=== PATIENT | female | born 1970 | race African-American/Black ===

== ENCOUNTER 2022-08-18 05:55 | Inpatient (IN) | payer OTHER ==
[2022-08-18] MEDS ORDERED: SODIUM CHLORIDE 0.9% 1000 ML 1,000 ML IV ONE (07:30)
[2022-08-18] MEDS ORDERED: PIPERACILLIN/TAZOBACTAM 3.375 3.375 GM/50 ML BAG IV SCH (07:30)
[2022-08-18 07:55] LABS: Hematocrit 27.6 % (30.3-42.9); Hemoglobin 8.9 gm/dl (10.1-14.3); Mean Corpuscular HGB Conc 32 % (30-34); Mean Corpuscular Volume 84 fl (79-97); Platelet Count 201 K/mm3 (140-440); Red Blood Count 3.28 M/mm3 (3.65-5.03); Red Cell Distribution Width 17.4 % (13.2-15.2)
--- NOTE | 2022-08-18 08:14 | XRay Report ---
CHEST 1 VIEW 08/18/2022 7:05 AM INDICATION / CLINICAL INFORMATION: sob. COMPARISON: None available. FINDINGS: SUPPORT DEVICES: None. HEART / MEDIASTINUM: No significant abnormality. LUNGS / PLEURA: Interstitial markings are slightly prominent likely representing mild interstitial ed christal. No focal infiltrate, pleural effusion or pneumothorax is appreciated. ADDITIONAL FINDINGS: No significant additional findings. IMPRESSION: 1. Mild pulmonary venous congestion Signer Name: Phoenix Love Jr, MD Signed: 08/18/2022 8:10 AM Workstation Name: [id number]
[2022-08-18 08:15] LABS: Alanine Aminotransferase 86 units/L (7-56); Albumin 3.1 g/dL (3.9-5); Blood Urea Nitrogen 6 mg/dL (7-17); Calcium 8.4 mg/dL (8.4-10.2); Hemolysis Index 0
[2022-08-18 08:18] LABS: BUN/Creatinine Ratio 12
[2022-08-18 09:00] LABS: Band Neutrophils # (Manual) 0.3 K/mm3; Basophils % (Manual) 0 % (0.0-1.8); Eosinophils % (Manual) 0 % (0.0-4.3); Hypochromasia 1+; Monocytes % (Manual) 0 % (0.0-7.3); Platelet Estimate Consistent w Auto; Total Cells Counted 100; Toxic Granulation 1+
[2022-08-18] MEDS ORDERED: VANCOMYCIN/NS 1 GM/250 ML 1 GM/250 ML BAG IV SCH (09:00)
--- NOTE | 2022-08-18 09:51 | Emergency Department Report ---
ED General Adult HPI - General Chief complaint: Weakness Stated complaint: FEVER Time Seen by Provider: 08/18/22 07:12 Source: patient, EMS Mode of arrival: Stretcher Limitations: Physical Limitation - History of Present Illness Initial comments: 52-year-old female with a history of MS, status post transfusion therapy, complains of fever x4 days patient admits to having chills. Denies having any cough shortness of breath. -: Gradual Location: chest Radiation: non-radiation Severity scale (0 -10): 0 Improves with: none Worsens with: none Associated Symptoms: fever/chills, malaise - Related Data Home Medications Medication Instructions Recorded Confirmed Last Taken Gabapentin [Neurontin] 300 mg PO BID 08/19/22 08/19/22 Unknown Insulin Glargine [Lantus VIAL] 10 unit SUB-Q QAM 08/19/22 08/19/22 Unknown Prednisone [predniSONE (Andreina) ER 5 mg PO QDAY 08/19/22 08/19/22 08/18/22 08:00 TAB] azaTHIOprine [Imuran] 50 mg PO BID 08/19/22 08/19/22 Unknown glipiZIDE [Glucotrol] 5 mg PO BID 08/19/22 08/19/22 08/18/22 08:00 Allergies Allergy/AdvReac Type Severity Reaction Status Date / Time lisinopril Allergy Unknown Verified 08/18/22 07:50 ED Review of Systems ROS: Stated complaint: FEVER Other details as noted in HPI Constitutional: chills, fever, malaise Eyes: as per HPI Respiratory: no symptoms reported, see HPI, orthopnea Endocrine: no symptoms reported Gastrointestinal: as per HPI Musculoskeletal: as per HPI Neurological: as per HPI Psychiatric: as per HPI ED Past Medical Hx - Surgical History Past Surgical History?: No Hx Coronary Stent: No Hx Open Heart Surgery: No Hx Pacemaker: No - Medications Home Medications: Home Medications Medication Instructions Recorded Confirmed Last Taken Type Gabapentin [Neurontin] 300 mg PO BID 08/19/22 08/19/22 Unknown History Insulin Glargine [Lantus VIAL] 10 unit SUB-Q QAM 08/19/22 08/19/22 Unknown History Prednisone [predniSONE (Andreina) ER 5 mg PO QDAY 08/19/22 08/19/22 08/18/22 08:00 History TAB] azaTHIOprine [Imuran] 50 mg PO BID 08/19/22 08/19/22 Unknown History glipiZIDE [Glucotrol] 5 mg PO BID 08/19/22 08/19/22 08/18/22 08:00 History ED Physical Exam - General Limitations: Physical Limitation ED Course Vital Signs 08/18/22 08/18/22 08/18/22 06:01 06:19 07:01 Temperature 99.8 F H Pulse Rate 120 H 103 H 109 H Respiratory 20 23 25 H Rate Blood Pressure 127/86 Blood Pressure 130/80 [Left] O2 Sat by Pulse 95 97 Oximetry 08/18/22 08/18/22 08/18/22 07:15 07:31 07:45 Temperature Pulse Rate 109 H 105 H 104 H Respiratory 28 H 24 19 Rate Blood Pressure 126/83 109/70 120/81 Blood Pressure [Left] O2 Sat by Pulse 97 98 98 Oximetry 08/18/22 08/18/22 08/18/22 08:01 08:15 09:01 Temperature Pulse Rate 105 H 105 H 111 H Respiratory 15 16 27 H Rate Blood Pressure 105/75 103/76 108/73 Blood Pressure [Left] O2 Sat by Pulse 93 95 96 Oximetry 08/18/22 08/18/22 08/18/22 10:01 11:01 12:00 Temperature Pulse Rate Respiratory Rate Blood Pressure 122/81 121/73 124/82 Blood Pressure [Left] O2 Sat by Pulse 95 94 92 Oximetry 08/18/22 08/18/22 08/18/22 13:01 14:01 15:01 Temperature Pulse Rate 104 H Respiratory 26 H Rate Blood Pressure 117/71 112/73 122/78 Blood Pressure [Left] O2 Sat by Pulse 95 96 95 Oximetry 08/18/22 08/18/22 08/18/22 17:01 18:01 18:04 Temperature Pulse Rate 107 H 107 H Respiratory 19 17 Rate Blood Pressure 132/78 132/78 Blood Pressure [Left] O2 Sat by Pulse 90 88 100 Oximetry 08/18/22 08/18/22 19:01 20:01 Temperature Pulse Rate 109 H 112 H Respiratory 22 31 H Rate Blood Pressure 132/78 132/78 Blood Pressure [Left] O2 Sat by Pulse 93 93 Oximetry ED Medical Decision Making - Lab Data Result diagrams: 08/19/22 05:51 08/19/22 05:51 Critical care attestation.: If time is entered above; I have spent that time in minutes in the direct care of this critically ill patient, excluding procedure time. ED Disposition Clinical Impression: Bacteremia Disposition: ADMITTED INPATIENT Is pt being admited?: Yes Does the pt Need Aspirin: No Condition: Serious
[2022-08-18] MEDS ORDERED: PIPERACILLIN/TAZOBACTAM 3.375 3.375 GM/50 ML BAG IV ONE (10:01)
[2022-08-18 10:36] LABS: Color,Urine Amber (Yellow)
--- NOTE | 2022-08-18 14:00 | History and Physical Report ---
History of Present Illness Chief complaint: I do not feel good History of present illness: 52 YO Female with MS presents to ED for evaluation. Patient reports around feel well". Patient states that she had experienced fever, chills over the past 4 days after undergoing infusion of another medication for MS. patient was seen and evaluated by her primary care physician and was found to have fever and was instructed to seek further care. Patient transported to [facility] via private vehicle for further care and evaluation of the aforementioned symptoms. The patient was seen and evaluated in the emergency department. Lab and imaging studies reviewed. Patient found to have systemic inflammatory response syndrome, me tabolic acidosis, secondary to infusion reaction. Patient treated with empiric IV antibiotic therapy and admitted to medical floor due to increased risk of worsening symptoms after medical stabilization. Patient denies fever, chills, chest pain, palpitation, productive cough, skin rash, recent contact, dizziness, upper or lower extremity weakness, headache, memory loss, skin rash, joint pain, headache, trauma, or known exposure to COVID-19. No prior admission for review. No medication listed at time of admission for reconciliation. Advanced care planning conducted in E. Past History Past Medical History: other (See HPI) Past Surgical History: No surgical history, Other (Reviewed) Social history: . denies: smoking, alcohol abuse, prescription drug abuse Family history: no significant family history, other (Reviewed) Medications and Allergies Allergies Allergy/AdvReac Type Severity Reaction Status Date / Time lisinopril Allergy Unknown Verified 08/18/22 07:50 Review of Systems Constitutional: fever, chills, no weight loss, no sweats, no weakness Ears, nose, mouth and throat: no ear pain, no ear discharge, no tinnitis, no decreased hearing, no nasal congestion Breasts: no change in shape, no swelling, no mass Cardiovascular: no chest pain, no orthopnea, no palpitations, no rapid/irregular heart beat, no edema Respiratory: no cough, no excessive sputum, no hemoptysis, no shortness of breath Gastrointestinal: no abdominal pain, no nausea, no vomiting, no constipation, no change in bowel habits Genitourinary Female: no pelvic pain, no dysuria, no urgency, no stress incontinence Rectal: no pain, no incontinence, no bleeding Musculoskeletal: no neck stiffness, no neck pain, no shooting arm pain, no low back pain, no shooting leg pain, no leg numbness/tingling, no redness of joints Integumentary: no rash, no pruritis, no sores, no wounds, no jaundice, no boils Neurological: no head injury, no numbness, no tingling, no syncope, no ataxia, no lack of coordination Psychiatric: no memory loss, no change in sleep habits, no hypersomnia Endocrine: no cold intolerance, no polyphagia, no polydipsia, no nocturia, no excessive sweating, no weight change Allergic/Immunologic: no urticaria, no allergic rhinitis Exam - Constitutional Vitals: Temp Pulse Resp BP Pulse Ox 99.8 F H 111 H 27 H 124/82 92 08/18/22 06:01 08/18/22 09:01 08/18/22 09:01 08/18/22 12:00 08/18/22 12:00 General appearance: Present: mild distress - EENT Eyes: Present: PERRL ENT: hearing intact, clear oral mucosa - Neck Neck: Present: supple, normal ROM - Respiratory Respiratory effort: normal Respiratory: bilateral: CTA - Cardiovascular Heart Sounds: Present: S1 & S2. Absent: rub, click - Extremities Extremities: pulses symmetrical, No edema Peripheral Pulses: within normal limits - Abdominal General gastrointestinal: Present: soft, non-tender, non-distended, normal bowel sounds Female genitourinary: Present: normal - Integumentary Integumentary: Present: clear, warm, dry - Musculoskeletal Musculoskeletal: gait normal, strength equal bilaterally - Psychiatric Psychiatric: appropriate mood/affect, intact judgment & insight - Neurologic Neurologic: CNII-XII intact, moves all extremities Results - Labs CBC & Chem 7: 08/18/22 07:34 08/18/22 07:34 Labs: Abnormal lab results 08/18/22 08/18/22 08/18/22 Range/Units 07:34 07:34 07:34 RBC 3.28 L (3.65-5.03) M/mm3 Hgb 8.9 L (10.1-14.3) gm/dl Hct 27.6 L (30.3-42.9) % MCH 27 L (28-32) pg RDW 17.4 H (13.2-15.2) % Seg Neuts % (Manual) 89.0 H (40.0-70.0) % Lymphocytes % (Manual) 6.0 L (13.4-35.0) % Seg Neutrophils # Man 8.0 H (1.8-7.7) K/mm3 Lymphocytes # (Manual) 0.5 L (1.2-5.4) K/mm3 Carbon Dioxide 21 L (22-30) mmol/L BUN 6 L (7-17) mg/dL Creatinine 0.5 L (0.6-1.2) mg/dL Glucose 180 H (65-100) mg/dL Lactic Acid 2.90 H* (0.7-2.0) mmol/L Total Bilirubin 5.20 H (0.1-1.2) mg/dL AST 43 H (5-40) units/L ALT 86 H (7-56) units/L Alkaline Phosphatase 282 H (35-129) units/L Total Protein 5.2 L (6.3-8.2) g/dL Albumin 3.1 L (3.9-5) g/dL Assessment and Plan - Patient Problems (1) Infusion reaction Current Visit: Yes Status: Acute Qualifiers: Encounter type: initial encounter Qualified Code(s): T80.90XA - Unspecified complication following infusion and therapeutic injection, initial encounter Plan to address problem: Supportive care, CBC, repeat CBC in a.m., IV fluid cessation therapy, pain control. (2) SIRS (systemic inflammatory response syndrome) Current Visit: Yes Status: Acute Plan to address problem: Empiric IV antibiotic therapy, CBC, repeat CBC in a.m., supportive care. (3) Multiple sclerosis Current Visit: Yes Status: Acute Plan to address problem: Chronic, no acute exacerbation at this time, outpatient neurology follow-up. (4) Metabolic acidosis Current Visit: Yes Status: Acute Plan to address problem: IV fluid resuscitation therapy, BMP, repeat BMP in AM. (5) DVT prophylaxis Current Visit: Yes Status: Acute Plan to address problem: SCD to bilateral lower extremities while in bed (6) Advance care planning Current Visit: Yes Status: Acute Plan to address problem: Disease education conducted, care plan discussed, diagnoses discussed, prognosis discussed, patient acknowledges understanding and agreement with care plan, +30 minutes. (7) Preventative health care Current Visit: Yes Status: Acute Plan to address problem: Patient counseled regarding risk factor reduction, outpatient follow-up with primary care physician for all age and risk factor appropriate screening test. Outpatient follow-up with neurology. +30 minutes.
[2022-08-18] MEDS ORDERED: HYDROmorphone 0.5 MG/0.5 ML INJ IV PRN (14:27)
[2022-08-18] MEDS ORDERED: ACETAMINOPHEN 325 MG TAB PO PRN (14:27)
[2022-08-18] MEDS ORDERED: ONDANSETRON 4 MG/2 ML INJ IV PRN (14:27)
[2022-08-18] MEDS ORDERED: ALBUTEROL 2.5 MG/3 ML NEBU IH PRN (14:27)
[2022-08-18] MEDS: SODIUM CHLORIDE 0.9% 1000 ML 1,000 ML IV SCH (22:44)
[2022-08-19] MEDS: SODIUM CHLORIDE 0.9% 1000 ML 1,000 ML IV SCH ×2 (06:00→17:57)
[2022-08-19 06:22] LABS: Basophils % (Auto) 0.2 % (0.0-1.8); Eosinophils # (Auto) 0.1 K/mm3 (0.0-0.4); Eosinophils % (Auto) 0.7 % (0.0-4.3); Hematocrit 26.3 % (30.3-42.9); Hemoglobin 8.6 gm/dl (10.1-14.3); Lymphocytes # (Auto) 1.3 K/mm3 (1.2-5.4); Lymphocytes % (Auto) 14.5 % (13.4-35.0); Mean Corpuscular HGB Conc 33 % (30-34); Mean Corpuscular Volume 85 fl (79-97); Monocytes # (Auto) 0.5 K/mm3 (0.0-0.8); Monocytes % (Auto) 5.5 % (0.0-7.3); Platelet Count 204 K/mm3 (140-440); Red Cell Distribution Width 17.7 % (13.2-15.2)
[2022-08-19 06:38] LABS: Blood Urea Nitrogen 7 mg/dL (7-17); Hemolysis Index 3
[2022-08-19 06:41] LABS: BUN/Creatinine Ratio 23
--- NOTE | 2022-08-19 08:12 | Cat Scan Report ---
CT head/brain wo con INDICATION: confusion. TECHNIQUE: CT head. All CT scans at this location are performed using CT dose reduction for ALARA by means of automated exposure control. COMPARISON: None. FINDINGS: Intracranial: Craig-white matter differentiation is maintained. No intracranial hemorrhage. No extra a xial collection. No hydrocephalus. No herniation. Sinuses: Mild mucosal thickening in the left maxillary sinus. Paranasal sinuses and mastoid air cells are otherwise essentially clear. Orbits: Globes are intact. Calvarium: No acute fracture. IMPRESSION: 1. No acute intracranial abnormality. Signer Name: Renard Tian MD Signed: 08/18/2022 4:22 PM Workstation Name: [email or web address]
--- NOTE | 2022-08-19 09:38 | Electrocardiograph Report ---
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
--- NOTE | 2022-08-19 11:59 | Progress Note ---
Assessment and Plan Assessment and plan: #Sepsis -patient afebrile since admission, does have tachycardia and tachypnea -UA negative; Blood cultures negative -s/p 1 dose of zosyn in the ED -unknown source at this time, patient did have recent infusion could be secondary to an infusion reaction vs infective source #Elevated bilirubin #Elevated liver enzymes #Jaundice -patient visibly jaundiced -AST 43, ALT 86, T bili 5.20 -acute hepatitis panel ordered -Abdominal ultrasound ordered -repeat CMP and total, direct bilirubin in the morning #Normocytic anemia -Hgb 8.8, baseline unknown -will transfuse for Hgb<7 -likely secondary to chronic disease (MS) #Metabolic acidosis #Lactic acidosis -continue IVFs, will trend #Multiple sclerosis -patient taking prednisone 5mg qday, will continue #Type 2 diabetes, insulin-dependent -patient takes glipizide and lantus 10U QHS -continue with SSI + accuchecks while inpatient #Hypokalemia -K 3.5, will replete and monitor #Advanced care planning -Disease education conducted, care plan discussed, diagnoses discussed, prognosis discussed, and patient + acknowledges understanding with care plan -Time: +30 min History Interval history: No acute events overnight. Patient reports feeling well better than admission. Her and her did not notice any change in the of her eyes. She has noticed that her urine has been darker lately. She denies symptoms of cystitis and abdominal pain. Hospitalist Physical - Physical exam Narrative exam: GENERAL: Well-developed well-nourished. In no acute distress. HEENT: Scleral icterus noted NECK: Supple. CHEST/LUNGS: CTAB on room air HEART/CARDIOVASCULAR: RRR. No murmur, rubs or gallops appreciated. ABDOMEN: +BS. NT/ND. SKIN: No rashes noted. NEURO: No focal motor deficit. Follows all commands and is ambulatory. MUSCULOSKELETAL: No joint effusion EXTREMITIES: No cyanosis, clubbing. L hand swollen and painful. PSYCH: Cooperative. - Constitutional Vitals: Temp Pulse Resp BP Pulse Ox 98.1 F 96 H 16 122/74 94 08/19/22 11:55 08/19/22 11:49 08/19/22 11:49 08/19/22 11:55 08/19/22 11:49 General appearance: Present: mild distress Results - Labs CBC & Chem 7: 08/19/22 05:51 08/19/22 05:51 Labs: Laboratory Last Values WBC 8.8 K/mm3 (4.5-11.0) 08/19/22 05:51 RBC 3.10 M/mm3 (3.65-5.03) L 08/19/22 05:51 Hgb 8.6 gm/dl (10.1-14.3) L 08/19/22 05:51 Hct 26.3 % (30.3-42.9) L 08/19/22 05:51 MCV 85 fl (79-97) 08/19/22 05:51 MCH 28 pg (28-32) 08/19/22 05:51 MCHC 33 % (30-34) 08/19/22 05:51 RDW 17.7 % (13.2-15.2) H 08/19/22 05:51 Plt Count 204 K/mm3 (140-440) 08/19/22 05:51 Lymph % (Auto) 14.5 % (13.4-35.0) 08/19/22 05:51 [place] % (Auto) 5.5 % (0.0-7.3) 08/19/22 05:51 Eos % (Auto) 0.7 % (0.0-4.3) 08/19/22 05:51 Baso % (Auto) 0.2 % (0.0-1.8) 08/19/22 05:51 Lymph # (Auto) 1.3 K/mm3 (1.2-5.4) 08/19/22 05:51 [place] # (Auto) 0.5 K/mm3 (0.0-0.8) 08/19/22 05:51 Eos # (Auto) 0.1 K/mm3 (0.0-0.4) 08/19/22 05:51 Baso # (Auto) 0.0 K/mm3 (0.0-0.1) 08/19/22 05:51 Add Manual Diff Complete 08/18/22 07:34 Total Counted 100 08/18/22 07:34 Seg Neutrophils % 79.1 % (40.0-70.0) H 08/19/22 05:51 Seg Neuts % (Manual) 89.0 % (40.0-70.0) H 08/18/22 07:34 Band Neutrophils % 3.0 % 08/18/22 07:34 Lymphocytes % (Manual) 6.0 % (13.4-35.0) L 08/18/22 07:34 Reactive Lymphs % (Man) 0 % 08/18/22 07:34 Monocytes % (Manual) 0 % (0.0-7.3) 08/18/22 07:34 Eosinophils % (Manual) 0 % (0.0-4.3) 08/18/22 07:34 Basophils % (Manual) 0 % (0.0-1.8) 08/18/22 07:34 Metamyelocytes % 2.0 % 08/18/22 07:34 Myelocytes % 0 % 08/18/22 07:34 Promyelocytes % 0 % 08/18/22 07:34 Blast Cells % 0 % 08/18/22 07:34 Nucleated RBC % Not Reportable 08/18/22 07:34 Seg Neutrophils # 6.9 K/mm3 (1.8-7.7) 08/19/22 05:51 Seg Neutrophils # Man 8.0 K/mm3 (1.8-7.7) H 08/18/22 07:34 Band Neutrophils # 0.3 K/mm3 08/18/22 07:34 Lymphocytes # (Manual) 0.5 K/mm3 (1.2-5.4) L 08/18/22 07:34 Abs React Lymphs (Man) 0.0 K/mm3 08/18/22 07:34 Monocytes # (Manual) 0.0 K/mm3 (0.0-0.8) 08/18/22 07:34 Eosinophils # (Manual) 0.0 K/mm3 (0.0-0.4) 08/18/22 07:34 Basophils # (Manual) 0.0 K/mm3 (0.0-0.1) 08/18/22 07:34 Metamyelocytes # 0.2 K/mm3 08/18/22 07:34 Myelocytes # 0.0 K/mm3 08/18/22 07:34 Promyelocytes # 0.0 K/mm3 08/18/22 07:34 Blast Cells # 0.0 K/mm3 08/18/22 07:34 WBC Morphology Not Reportable 08/18/22 07:34 Hypersegmented Neuts Not Reportable 08/18/22 07:34 Hyposegmented Neuts Not Reportable 08/18/22 07:34 Hypogranular Neuts Not Reportable 08/18/22 07:34 Smudge Cells Not Reportable 08/18/22 07:34 Toxic Granulation 1+ 08/18/22 07:34 Toxic Vacuolation Not Reportable 08/18/22 07:34 Dohle Bodies Not Reportable 08/18/22 07:34 Pelger-Huet Anomaly Not Reportable 08/18/22 07:34 Yolanda Rods Not Reportable 08/18/22 07:34 Platelet Estimate Consistent w auto 08/18/22 07:34 Clumped Platelets Not Reportable 08/18/22 07:34 Plt Clumps, EDTA Not Reportable 08/18/22 07:34 Large Platelets Not Reportable 08/18/22 07:34 Giant Platelets Not Reportable 08/18/22 07:34 Platelet Satelliting Not Reportable 08/18/22 07:34 Plt Morphology Comment Not Reportable 08/18/22 07:34 RBC Morphology Not Reportable 08/18/22 07:34 Dimorphic RBCs Not Reportable 08/18/22 07:34 Polychromasia Not Reportable 08/18/22 07:34 Hypochromasia 1+ 08/18/22 07:34 Poikilocytosis Not Reportable 08/18/22 07:34 Anisocytosis Not Reportable 08/18/22 07:34 Microcytosis Not Reportable 08/18/22 07:34 Macrocytosis Not Reportable 08/18/22 07:34 Spherocytes Not Reportable 08/18/22 07:34 Pappenheimer Bodies Not Reportable 08/18/22 07:34 Sickle Cells Not Reportable 08/18/22 07:34 Target Cells Not Reportable 08/18/22 07:34 Tear Drop Cells Not Reportable 08/18/22 07:34 Ovalocytes Not Reportable 08/18/22 07:34 Helmet Cells Not Reportable 08/18/22 07:34 [place] Bodies Not Reportable 08/18/22 07:34 [place] Rings Not Reportable 08/18/22 07:34 [place] Cells Not Reportable 08/18/22 07:34 Bite Cells Not Reportable 08/18/22 07:34 Crenated Cell Not Reportable 08/18/22 07:34 Elliptocytes Not Reportable 08/18/22 07:34 Acanthocytes (Spur) Not Reportable 08/18/22 07:34 Rouleaux Not Reportable 08/18/22 07:34 Hemoglobin C Crystals Not Reportable 08/18/22 07:34 Schistocytes Not Reportable 08/18/22 07:34 Malaria parasites Not Reportable 08/18/22 07:34 Rob Bodies Not Reportable 08/18/22 07:34 Hem Pathologist Commnt No 08/18/22 07:34 Sodium 139 mmol/L (137-145) 08/19/22 05:51 Potassium 3.5 mmol/L (3.6-5.0) L 08/19/22 05:51 Chloride 107.9 mmol/L (98-107) H 08/19/22 05:51 Carbon Dioxide 20 mmol/L (22-30) L 08/19/22 05:51 Anion Gap 15 mmol/L 08/19/22 05:51 BUN 7 mg/dL (7-17) 08/19/22 05:51 Creatinine 0.3 mg/dL (0.6-1.2) L 08/19/22 05:51 Estimated GFR > 60 ml/min 08/19/22 05:51 BUN/Creatinine Ratio 23 % 08/19/22 05:51 Glucose 77 mg/dL (65-100) 08/19/22 05:51 POC Glucose 129 mg/dL (70-105) H 08/18/22 22:19 Lactic Acid 2.90 mmol/L (0.7-2.0) H* 08/18/22 07:34 Calcium 8.0 mg/dL (8.4-10.2) L 08/19/22 05:51 Total Bilirubin 5.20 mg/dL (0.1-1.2) H 08/18/22 07:34 AST 43 units/L (5-40) H 08/18/22 07:34 ALT 86 units/L (7-56) H 08/18/22 07:34 Alkaline Phosphatase 282 units/L (35-129) H 08/18/22 07:34 Total Protein 5.2 g/dL (6.3-8.2) L 08/18/22 07:34 Albumin 3.1 g/dL (3.9-5) L 08/18/22 07:34 Albumin/Globulin Ratio 1.5 % 08/18/22 07:34 Urine Color Daniela (Yellow) 08/18/22 Unknown Urine Turbidity Clear (Clear) 08/18/22 Unknown Specific [place] (Man) 1.008 (1.003-1.030) 08/18/22 Unknown Ur Protein (Man) Negative mg/dL (Negative) 08/18/22 Unknown Ur Ketones (Man) Negative (Negative) 08/18/22 Unknown Ur Nitrite (Man) Negative (Negative) 08/18/22 Unknown Urine Bilirubin (Man) Negative (Negative) 08/18/22 Unknown Urine Ictotest Not Reportable 08/18/22 Unknown Leukocyte Esterase (Man) Negative (Negative) 08/18/22 Unknown Urine WBC (Auto) 1.0 /HPF (0.0-6.0) 08/18/22 Unknown Urine RBC (Auto) 3.0 /HPF (0.0-6.0) 08/18/22 Unknown U Epithel Cells (Auto) < 1.0 /HPF (0-13.0) 08/18/22 Unknown Urine RBC (Manual) Negative (Negative) 08/18/22 Unknown Microbiology: Microbiology 08/18/22 07:34 Peripheral/Venous Blood Culture - Preliminary Culture in Progress 08/18/22 07:34 Peripheral/Venous Blood Culture - Preliminary Culture in Progress Cervantes/IV: Voiding Method Bedside Commode Active Medications - Current Medications Current Medications: Generic Name Dose Route Start Last Admin Trade Name Freq PRN Reason Stop Dose Admin Acetaminophen 650 mg 08/18/22 14:27 Acetaminophen 325 Mg Tab PO Q4H PRN Pain MILD(1-3)/Fever >100.5/[id number] Albuterol 2.5 mg 08/18/22 14:27 Albuterol 2.5 Mg/3 Ml Nebu IH Q4HRT PRN Shortness Of Breath Gabapentin 300 mg 08/19/22 22:00 Gabapentin 300 Mg Cap PO BID ANURADHA Hydromorphone HCl 0.5 mg 08/18/22 14:27 08/19/22 06:06 Hydromorphone 0.5 Mg/0.5 Ml Inj IV 0.5 mg Q13H PRN Administration Pain , Severe (7-10) Sodium Chloride 1,000 mls @ 125 mls/hr 08/18/22 14:30 08/19/22 06:00 Nacl 0.9% 1000 Ml IV 125 mls/hr DIRECT ANURADHA Administration Miscellaneous Medication 5 mg 08/19/22 12:00 Prednisone [Prednisone (Andreina) Er Tab] PO QDAY ANURADHA Ondansetron HCl 4 mg 08/18/22 14:27 Ondansetron 4 Mg/2 Ml Inj IV Q8H PRN Nausea And Vomiting Oxycodone/Acetaminophen 1 tab 08/18/22 14:27 Oxycodone /Acetaminophen 5-325mg Tab PO Q6H PRN Pain, Moderate (4-6) Sodium Chloride 10 ml 08/18/22 22:00 08/18/22 22:44 Sodium Chloride 0.9% 10 Ml Flush Syringe IV 10 ml BID ANURADHA Administration Sodium Chloride 10 ml 08/18/22 14:27 Sodium Chloride 0.9% 10 Ml Flush Syringe IV PRN PRN LINE FLUSH
[2022-08-19] MEDS ORDERED: NON-FORMULARY EACH (Prednisone [Prednisone (Rayos) Er Tab] 5 MG Tablet.Dr) PO SCH (12:00)
[2022-08-19] MEDS: GABAPENTIN 300 MG CAP PO SCH ×2 (13:26→21:57)
[2022-08-19] MEDS: predniSONE 5 MG TAB PO SCH (13:26)
[2022-08-19 14:44] LABS: Hepatitis B Surface Antigen Non-Reactive (Negative); Hepatitis C Virus Antibody Non-Reactive (NonReactive)
--- NOTE | 2022-08-19 17:24 | Vascular Lab Report ---
DUPLEX DOPPLER UPPER EXTREMITY VENOUS, LEFT INDICATION / CLINICAL INFORMATION: R/O DVT of L hand. TECHNIQUE: Duplex doppler imaging was performed through the veins of the left upper extremity using venous compr ession and other maneuvers. COMPARISON: None available. FINDINGS: LEFT INTERNAL JUGULAR VEIN: Negative. LEFT SUBCLAVIAN VEIN: Negative. LEFT AXILLARY VEIN: Negative. LEFT BRACHIAL VEIN: Negative. LEFT FOREARM VEINS: Negative. LEFT BASILIC VEIN (SUPERFICIAL): Negative. ADDITIONAL FINDINGS: None. IMPRESSION: 1. No sonographic evidence for DVT. Signer Name: Ady Cano MD Signed: 08/19/2022 5:20 PM Workstation Name: [id number]
[2022-08-19] MEDS: oxyCODONE /ACETAMINOPHEN 5-325MG TAB PO PRN (17:56)
[2022-08-20] MEDS: SODIUM CHLORIDE 0.9% 1000 ML 1,000 ML IV SCH ×2 (01:00→11:51)
[2022-08-20 05:32] LABS: Alanine Aminotransferase 58 units/L (7-56); Albumin 2.6 g/dL (3.9-5); Bilirubin,Direct 6.4 mg/dL (0-0.2); Blood Urea Nitrogen 7 mg/dL (7-17); Calcium 8.1 mg/dL (8.4-10.2); Hemolysis Index 3
[2022-08-20 05:49] LABS: BUN/Creatinine Ratio 35
[2022-08-20] MEDS: oxyCODONE /ACETAMINOPHEN 5-325MG TAB PO PRN ×2 (06:38→16:05)
[2022-08-20] MEDS: predniSONE 5 MG TAB PO SCH (08:57)
--- NOTE | 2022-08-20 09:09 | Ultrasound Report ---
ULTRASOUND ABDOMEN, COMPLETE INDICATION: jaundice. COMPARISON: No relevant prior imaging study available. FINDINGS: Pancreas: No significant abnormality. Abdominal Aorta: Normal size. IVC: No significant abnormality. Liver: The liver measures 15.3 cm in length. Heterogeneous appearance of the liver with no discrete mass identified.. Normal hepatopedal blood flow in the main portal vein. Gallbladder: Gallbladder is mostly contracted which limits evaluation for wall thickening. Tiny inter nal layering stones noted. Bile ducts: No significant abnormality. Common bile duct measures 6 mm. Kidneys: Right: 10.2 cm in length. No significant abnormality. Left: 11.4 cm in length. No signif icant abnormality. Spleen: No significant abnormality. Free fluid: None. Additional Findings: There appears to be a small right-sided pleural effusion. IMPRESSION: 1. No acute sonographic abnormality of the abdomen. 2. Mostly contracted gallbladder containing a small amount of stones and sludge. 3. Probable small right-sided pleural effusion. Signer Name: Joseph Martínez MD Signed: 08/20/2022 9:05 AM Workstation Name: [id number]
[2022-08-20] MEDS: GABAPENTIN 300 MG CAP PO SCH ×2 (11:52→21:06)
--- NOTE | 2022-08-20 16:08 | Event Note ---
Date: 08/20/22 Full GI onsult dictated - increased ;lft's, drug rxn vs shock vs other - labs ordered - consider mrcp - will follow
--- NOTE | 2022-08-20 16:37 | Progress Note ---
Assessment and Plan Assessment and plan: #Sepsisruled out -patient afebrile since admission, does have tachycardia and tachypnea -UA negative; Blood cultures negative -s/p 1 dose of zosyn in the ED -unknown source at this time, patient did have recent infusion could be secondary to an infusion reaction vs infective source #Hyperbilirubinemia #Elevated transaminases #Jaundice -patient visibly jaundiced -AST 43, ALT 86, T bili 5.20 -acute hepatitis panel unremarkable -Abdominal ultrasound relatively unremarkablerevealing contracted gallbladder with possible right-sided pleural effusion. Pending CT abdomen and pelvis for further evaluation. Gastroenterology consulted; appreciate recs. Considering possible MRCP. Pending PRASHANTH. Continue to monitor LFTs. #Normocytic anemia -Hgb 8.8, baseline unknown -will transfuse for Hgb<7 -likely secondary to chronic disease (MS) #Metabolic acidosis #Lactic acidosisresolved -continue IVFs, will trend #Multiple sclerosis -Continue home prednisone 5mg qday #Insulin-dependent type 2 diabetes mellitus -patient takes glipizide and lantus 10U QHS -continue with SSI + accuchecks while inpatient #Hypokalemiaresolved -K 3.5, will replete and monitor #Advanced care planning -Disease education conducted, care plan discussed, diagnoses discussed, prognosis discussed, and patient + acknowledges understanding with care plan -Time: +30 min Disposition Plan: Continue medical management Total Time Spent with Patient (Minutes): 45 minutes History Interval history: No acute events overnight. Hospitalist Physical - Constitutional Vitals: Temp Pulse Resp BP Pulse Ox 98.9 F 95 H 20 139/76 98 08/20/22 12:10 08/20/22 12:10 08/20/22 12:10 08/20/22 12:10 08/20/22 12:10 General appearance: Present: no acute distress, well-nourished - EENT Eyes: Present: PERRL, EOM intact ENT: hearing intact, clear oral mucosa, dentition normal - Neck Neck: Present: supple, normal ROM - Respiratory Respiratory effort: normal Respiratory: bilateral: CTA - Cardiovascular Rhythm: regular Heart Sounds: Present: S1 & S2 - Extremities Extremities: no ischemia, pulses intact, pulses symmetrical, No edema, normal temperature, normal color, Full ROM Peripheral Pulses: within normal limits - Abdominal General gastrointestinal: soft, non-tender, non-distended, normal bowel sounds - Integumentary Integumentary: Present: clear, warm, dry, jaundice - Psychiatric Psychiatric: appropriate mood/affect, intact judgment & insight, memory intact, cooperative - Neurologic Neurologic: CNII-XII intact, moves all extremities - Allied Health Allied health notes reviewed: nursing Results - Labs CBC & Chem 7: 08/19/22 05:51 08/20/22 04:45 Labs: Laboratory Last Values WBC 8.8 K/mm3 (4.5-11.0) 08/19/22 05:51 RBC 3.10 M/mm3 (3.65-5.03) L 08/19/22 05:51 Hgb 8.6 gm/dl (10.1-14.3) L 08/19/22 05:51 Hct 26.3 % (30.3-42.9) L 08/19/22 05:51 MCV 85 fl (79-97) 08/19/22 05:51 MCH 28 pg (28-32) 08/19/22 05:51 MCHC 33 % (30-34) 08/19/22 05:51 RDW 17.7 % (13.2-15.2) H 08/19/22 05:51 Plt Count 204 K/mm3 (140-440) 08/19/22 05:51 Lymph % (Auto) 14.5 % (13.4-35.0) 08/19/22 05:51 [place] % (Auto) 5.5 % (0.0-7.3) 08/19/22 05:51 Eos % (Auto) 0.7 % (0.0-4.3) 08/19/22 05:51 Baso % (Auto) 0.2 % (0.0-1.8) 08/19/22 05:51 Lymph # (Auto) 1.3 K/mm3 (1.2-5.4) 08/19/22 05:51 [place] # (Auto) 0.5 K/mm3 (0.0-0.8) 08/19/22 05:51 Eos # (Auto) 0.1 K/mm3 (0.0-0.4) 08/19/22 05:51 Baso # (Auto) 0.0 K/mm3 (0.0-0.1) 08/19/22 05:51 Add Manual Diff Complete 08/18/22 07:34 Total Counted 100 08/18/22 07:34 Seg Neutrophils % 79.1 % (40.0-70.0) H 08/19/22 05:51 Seg Neuts % (Manual) 89.0 % (40.0-70.0) H 08/18/22 07:34 Band Neutrophils % 3.0 % 08/18/22 07:34 Lymphocytes % (Manual) 6.0 % (13.4-35.0) L 08/18/22 07:34 Reactive Lymphs % (Man) 0 % 08/18/22 07:34 Monocytes % (Manual) 0 % (0.0-7.3) 08/18/22 07:34 Eosinophils % (Manual) 0 % (0.0-4.3) 08/18/22 07:34 Basophils % (Manual) 0 % (0.0-1.8) 08/18/22 07:34 Metamyelocytes % 2.0 % 08/18/22 07:34 Myelocytes % 0 % 08/18/22 07:34 Promyelocytes % 0 % 08/18/22 07:34 Blast Cells % 0 % 08/18/22 07:34 Nucleated RBC % Not Reportable 08/18/22 07:34 Seg Neutrophils # 6.9 K/mm3 (1.8-7.7) 08/19/22 05:51 Seg Neutrophils # Man 8.0 K/mm3 (1.8-7.7) H 08/18/22 07:34 Band Neutrophils # 0.3 K/mm3 08/18/22 07:34 Lymphocytes # (Manual) 0.5 K/mm3 (1.2-5.4) L 08/18/22 07:34 Abs React Lymphs (Man) 0.0 K/mm3 08/18/22 07:34 Monocytes # (Manual) 0.0 K/mm3 (0.0-0.8) 08/18/22 07:34 Eosinophils # (Manual) 0.0 K/mm3 (0.0-0.4) 08/18/22 07:34 Basophils # (Manual) 0.0 K/mm3 (0.0-0.1) 08/18/22 07:34 Metamyelocytes # 0.2 K/mm3 08/18/22 07:34 Myelocytes # 0.0 K/mm3 08/18/22 07:34 Promyelocytes # 0.0 K/mm3 08/18/22 07:34 Blast Cells # 0.0 K/mm3 08/18/22 07:34 WBC Morphology Not Reportable 08/18/22 07:34 Hypersegmented Neuts Not Reportable 08/18/22 07:34 Hyposegmented Neuts Not Reportable 08/18/22 07:34 Hypogranular Neuts Not Reportable 08/18/22 07:34 Smudge Cells Not Reportable 08/18/22 07:34 Toxic Granulation 1+ 08/18/22 07:34 Toxic Vacuolation Not Reportable 08/18/22 07:34 Dohle Bodies Not Reportable 08/18/22 07:34 Pelger-Huet Anomaly Not Reportable 08/18/22 07:34 Yolanda Rods Not Reportable 08/18/22 07:34 Platelet Estimate Consistent w auto 08/18/22 07:34 Clumped Platelets Not Reportable 08/18/22 07:34 Plt Clumps, EDTA Not Reportable 08/18/22 07:34 Large Platelets Not Reportable 08/18/22 07:34 Giant Platelets Not Reportable 08/18/22 07:34 Platelet Satelliting Not Reportable 08/18/22 07:34 Plt Morphology Comment Not Reportable 08/18/22 07:34 RBC Morphology Not Reportable 08/18/22 07:34 Dimorphic RBCs Not Reportable 08/18/22 07:34 Polychromasia Not Reportable 08/18/22 07:34 Hypochromasia 1+ 08/18/22 07:34 Poikilocytosis Not Reportable 08/18/22 07:34 Anisocytosis Not Reportable 08/18/22 07:34 Microcytosis Not Reportable 08/18/22 07:34 Macrocytosis Not Reportable 08/18/22 07:34 Spherocytes Not Reportable 08/18/22 07:34 Pappenheimer Bodies Not Reportable 08/18/22 07:34 Sickle Cells Not Reportable 08/18/22 07:34 Target Cells Not Reportable 08/18/22 07:34 Tear Drop Cells Not Reportable 08/18/22 07:34 Ovalocytes Not Reportable 08/18/22 07:34 Helmet Cells Not Reportable 08/18/22 07:34 Law-Haswell Bodies Not Reportable 08/18/22 07:34 [place] Rings Not Reportable 08/18/22 07:34 Sonido Cells Not Reportable 08/18/22 07:34 Bite Cells Not Reportable 08/18/22 07:34 Crenated Cell Not Reportable 08/18/22 07:34 Elliptocytes Not Reportable 08/18/22 07:34 Acanthocytes (Spur) Not Reportable 08/18/22 07:34 Rouleaux Not Reportable 08/18/22 07:34 Hemoglobin C Crystals Not Reportable 08/18/22 07:34 Schistocytes Not Reportable 08/18/22 07:34 Malaria parasites Not Reportable 08/18/22 07:34 Rob Bodies Not Reportable 08/18/22 07:34 Hem Pathologist Commnt No 08/18/22 07:34 Sodium 141 mmol/L (137-145) 08/20/22 04:45 Potassium 3.8 mmol/L (3.6-5.0) 08/20/22 04:45 Chloride 107.2 mmol/L (98-107) H 08/20/22 04:45 Carbon Dioxide 20 mmol/L (22-30) L 08/20/22 04:45 Anion Gap 18 mmol/L 08/20/22 04:45 BUN 7 mg/dL (7-17) 08/20/22 04:45 Creatinine 0.2 mg/dL (0.6-1.2) L 08/20/22 04:45 Estimated GFR > 60 ml/min 08/20/22 04:45 BUN/Creatinine Ratio 35 % 08/20/22 04:45 Glucose 145 mg/dL (65-100) H 08/20/22 04:45 POC Glucose 129 mg/dL (70-105) H 08/18/22 22:19 Lactic Acid 1.70 mmol/L (0.7-2.0) 08/19/22 15:06 Calcium 8.1 mg/dL (8.4-10.2) L 08/20/22 04:45 Total Bilirubin 7.10 mg/dL (0.1-1.2) H 08/20/22 04:45 Direct Bilirubin 6.4 mg/dL (0-0.2) H 08/20/22 04:45 Indirect Bilirubin 0.7 mg/dL 08/20/22 04:45 AST 76 units/L (5-40) H 08/20/22 04:45 ALT 58 units/L (7-56) H 08/20/22 04:45 Alkaline Phosphatase 463 units/L (35-129) H 08/20/22 04:45 Total Protein 4.8 g/dL (6.3-8.2) L 08/20/22 04:45 Albumin 2.6 g/dL (3.9-5) L 08/20/22 04:45 Albumin/Globulin Ratio 1.2 % 08/20/22 04:45 Urine Color Daniela (Yellow) 08/18/22 Unknown Urine Turbidity Clear (Clear) 08/18/22 Unknown Specific [place] (Man) 1.008 (1.003-1.030) 08/18/22 Unknown Ur Protein (Man) Negative mg/dL (Negative) 08/18/22 Unknown Ur Ketones (Man) Negative (Negative) 08/18/22 Unknown Ur Nitrite (Man) Negative (Negative) 08/18/22 Unknown Urine Bilirubin (Man) Negative (Negative) 08/18/22 Unknown Urine Ictotest Not Reportable 08/18/22 Unknown Leukocyte Esterase (Man) Negative (Negative) 08/18/22 Unknown Urine WBC (Auto) 1.0 /HPF (0.0-6.0) 08/18/22 Unknown Urine RBC (Auto) 3.0 /HPF (0.0-6.0) 08/18/22 Unknown U Epithel Cells (Auto) < 1.0 /HPF (0-13.0) 08/18/22 Unknown Urine RBC (Manual) Negative (Negative) 08/18/22 Unknown Hepatitis A IgM Ab Non-reactive (NonReactive) 08/19/22 05:51 Hep Bs Antigen Non-reactive (Negative) 08/19/22 05:51 Hep B Core IgM Ab Non-reactive (NonReactive) 08/19/22 05:51 Hepatitis C Antibody Non-reactive (NonReactive) 08/19/22 05:51 Microbiology: Microbiology 08/18/22 07:34 Peripheral/Venous Blood Culture - Preliminary NO GROWTH AFTER 48 HOURS 08/18/22 07:34 Peripheral/Venous Blood Culture - Preliminary NO GROWTH AFTER 48 HOURS Cervantes/IV: Voiding Method Bedside Commode Active Medications - Current Medications Current Medications: Generic Name Dose Route Start Last Admin Trade Name Freq PRN Reason Stop Dose Admin Acetaminophen 650 mg 08/18/22 14:27 Acetaminophen 325 Mg Tab PO Q4H PRN Pain MILD(1-3)/Fever >100.5/[id number] Albuterol 2.5 mg 08/18/22 14:27 Albuterol 2.5 Mg/3 Ml Nebu IH Q4HRT PRN Shortness Of Breath Gabapentin 300 mg 08/19/22 12:00 08/20/22 11:52 Gabapentin 300 Mg Cap PO 300 mg BID ANURADHA Administration Hydromorphone HCl 0.5 mg 08/18/22 14:27 08/19/22 06:06 Hydromorphone 0.5 Mg/0.5 Ml Inj IV 0.5 mg Q13H PRN Administration Pain , Severe (7-10) Sodium Chloride 1,000 mls @ 125 mls/hr 08/18/22 14:30 08/20/22 11:51 Nacl 0.9% 1000 Ml IV 125 mls/hr DIRECT ANURADHA Administration Ondansetron HCl 4 mg 08/18/22 14:27 Ondansetron 4 Mg/2 Ml Inj IV Q8H PRN Nausea And Vomiting Oxycodone/Acetaminophen 1 tab 08/18/22 14:27 08/20/22 16:05 Oxycodone /Acetaminophen 5-325mg Tab PO 1 tab Q6H PRN Administration Pain, Moderate (4-6) Prednisone 5 mg 08/19/22 12:00 08/20/22 08:57 Prednisone 5 Mg Tab PO 5 mg DAILY@0800 ANURADHA Administration Sodium Chloride 10 ml 08/18/22 22:00 08/20/22 11:52 Sodium Chloride 0.9% 10 Ml Flush Syringe IV 10 ml BID ANURADHA Administration Sodium Chloride 10 ml 08/18/22 14:27 Sodium Chloride 0.9% 10 Ml Flush Syringe IV PRN PRN LINE FLUSH
--- NOTE | 2022-08-20 16:45 | Cat Scan Report ---
CT ABDOMEN AND PELVIS WITH CONTRAST INDICATION / CLINICAL INFORMATION: Concern for biliary blockage 2/2 mass. TECHNIQUE: Axial CT images were obtained through the abdomen and pelvis after 70 mL Omnipaque [address] scans at this location are performed using CT dose reduction for ALARA by means of automated exposure control. COMPARISON: Ultrasound dated 08/18/22 FINDINGS: LOWER CHEST: Small bilateral pleural effusions with mild passive atelectasis of the lower lobes. LIVER: No significant abnormality. GALLBLADDER: Contracted gallbladder with mucosal thickening and edematous wall. Small amount of sludg e. BILE DUCTS: No significant abnormality. PANCREAS: No significant abnormality. SPLEEN: No significant abnormality. ADRENALS: No significant abnormality. RIGHT KIDNEY / URETER: No significant abnormality. LEFT KIDNEY / URETER: No significant abnormality. STOMACH / SMALL BOWEL: No significant abnormality. COLON: Mild focal thickening at the hepatic flexure with mild pericolonic inflammation. No extralumin al gas or abscess. APPENDIX: No significant abnormality. PERITONEUM: No free fluid. No free air. No fluid collection. LYMPH NODES: No significant adenopathy. AORTA / ARTERIES: No significant abnormality. IVC / VEINS: No significant abnormality. URINARY BLADDER: No significant abnormality. REPRODUCTIVE ORGANS: No significant abnormality. ADDITIONAL FINDINGS: None. SKELETAL SYSTEM: No significant abnormality. IMPRESSION: 1. Contracted gallbladder containing small amount of sludge with mucosal thickening and edematous wal l. 2. No biliary ductal dilatation or choledocholithiasis. 3. Possible focal colitis of the hepatic flexure. No free air or abscess. 4. Small bilateral pleural effusions with bibasilar atelectasis. Signer Name: Humberto Mackenzie MD Signed: 08/20/2022 4:41 PM Workstation Name: [id number]
--- NOTE | 2022-08-20 23:07 | Consultation ---
DATE OF CONSULTATION: 08/20/2022 REFERRING PHYSICIAN: Natalia Grant M.D. INDICATION: Increased liver function tests. HISTORY OF PRESENT ILLNESS: The patient is a 52-year-old white female with history of MS, now being seen by GI for increased liver function tests. The patient denies a history of known liver disease in the past. The patient reports she recently was started on a new MS medications and developed fevers and chills over the past four days after infusion. The patient was told by primary care physician to go to the Emergency Room. IN the Emergency Room, the patient was known to have increased liver function test. The patient denies any other specific history of liver disease in the past. Denies acute hepatitis in the past. Denies any alcohol. No other specific complaints. PAST MEDICAL HISTORY: MS. MEDICATIONS: Reviewed and updated in chart. ALLERGIES: LISINOPRIL. SOCIAL HISTORY: Denies alcohol, tobacco or drug abuse. FAMILY HISTORY: Colon cancer, IBD, or liver disease. REVIEW OF SYSTEMS: GENERAL: Reports some weakness. HEENT: No visual complaints or tinnitus. PULMONARY: No shortness of breath, chest pain. GASTROINTESTINAL: Denies any other specific complaints. All points of 13-point review of system otherwise negative. PHYSICAL EXAMINATION: VITAL SIGNS: Temperature of 98.9, pulse 94, respirations 20, blood pressure 139/76. GENERAL: A well-nourished, in no acute distress. HEENT: Pupils round and reactive. PULMONARY: Clear to auscultation bilaterally. CARDIOVASCULAR: Regular rate and rhythm. Normal S1, S2. ABDOMEN: Positive bowel sounds, soft. SKIN: No obvious rashes. LABORATORY DATA: Pertinent for white count of 8.8, hemoglobin and hematocrit of 8.6 and 26.3, platelet count of 204. Chem-7 within normal limits. AST and ALT of 76 and 58 with a total bilirubin of 7.1 and alkaline phosphatase of 463. Ultrasound pending. CT abdomen and pelvis results pending. ASSESSMENT: A female patient with a history of multiple sclerosis, now status post recent infusion of new multiple sclerosis drug, now presents with fevers, chills or other systemic symptoms. GI consulted to aid in management with noted increased liver function tests. Suspect increased liver function tests secondary to infusion, meeting drug reaction versus acute hepatitis versus other. PLAN: * Await ultrasound and CT results. * Consider MRCP. * Avoid hepatotoxic drugs. * Basic liver labs will be ordered. * No indication for liver biopsy. * We will follow further recommendation based on progress. TID: [id number] RECEIPT: [id number] JIMMY/MALIKA
[2022-08-20] MEDS: INSULIN LISPRO 100 UNIT/ML SUB-Q SCH ×2 (23:11→23:22)
[2022-08-21] MEDS: SODIUM CHLORIDE 0.9% 1000 ML 1,000 ML IV SCH (04:44)
[2022-08-21] MEDS: INSULIN LISPRO 100 UNIT/ML SUB-Q SCH ×4 (07:50→22:42)
[2022-08-21 08:50] LABS: Albumin 2.9 g/dL (3.9-5); Bilirubin,Direct 7.7 mg/dL (0-0.2)
--- NOTE | 2022-08-21 10:06 | Gastroenterology Progress Note ---
Assessment and Plan 1. Elevated LFTs - DDX: drug rxn vs shock vs autoimmune vs other - LFTs, Tbili, and alk phos are all significantly higher than yesterday, c ontinue to trend - autoimmune labs ordered, pending - Will hold off on MRCP for now - will continue to follow Subjective Date of service: 08/21/22 Interval history: Pt seen and examined. Sitting comfortably in bed eating breakfast. Family member present at bedside. States she is feeling well. Denies abd pain, N/V. Endorses small BM this AM. Family member is asking is plasma transfusion x3 wks ago could be the cause of her symptoms. Objective - Constitutional Vitals: Temp Pulse Resp BP Pulse Ox 100.6 F H 102 H 18 137/82 97 08/21/22 05:22 08/21/22 05:22 08/21/22 05:22 08/21/22 05:22 08/21/22 05:22 General appearance: no acute distress - EENT ENT: hearing intact - Gastrointestinal General gastrointestinal: Present: deferred, soft, non-distended - Labs CBC & Chem 7: 08/19/22 05:51 08/20/22 04:45 Labs: Laboratory Results - last 24 hr 08/20/22 08/21/22 08/21/22 21:37 08:08 08:08 POC Glucose 245 H Ferritin 550.4 H Total Bilirubin 8.70 H Direct Bilirubin 7.7 H Indirect Bilirubin 1.0 AST 313 H ALT 159 H Alkaline Phosphatase 779 H Total Protein 5.4 L Albumin 2.9 L Albumin/Globulin Ratio 1.2
[2022-08-21] MEDS: GABAPENTIN 300 MG CAP PO SCH ×2 (11:56→22:42)
[2022-08-21] MEDS: predniSONE 5 MG TAB PO SCH (11:57)
[2022-08-21] MEDS: oxyCODONE /ACETAMINOPHEN 5-325MG TAB PO PRN (13:48)
--- NOTE | 2022-08-21 16:44 | Progress Note ---
Assessment and Plan Assessment and plan: #Sepsisruled out -patient afebrile since admission, does have tachycardia and tachypnea -UA negative; Blood cultures negative -s/p 1 dose of zosyn in the ED -unknown source at this time, patient did have recent infusion could be secondary to an infusion reaction vs infective source #Hyperbilirubinemiaworsening #Elevated transaminasesworsening #Jaundice -patient visibly jaundiced -AST 43, ALT 86, T bili 5.20 -acute hepatitis panel unremarkable -Abdominal ultrasound relatively unremarkablerevealing contracted gallbladder with possible right-sided pleural effusion. Pending CT abdomen and pelvis for further evaluation. Gastroenterology consulted; appreciate recs. Considering possible MRCP. Pending PRASHANTH. Continue to monitor LFTs. #Normocytic anemia -Hgb 8.8, baseline unknown -will transfuse for Hgb<7 -likely secondary to chronic disease (MS) #Metabolic acidosisresolved #Lactic acidosisresolved -continue IVFs, will trend #Multiple sclerosis -Continue home prednisone 5mg qday #Insulin-dependent type 2 diabetes mellitus -patient takes glipizide and lantus 10U QHS -continue with SSI + accuchecks while inpatient #Hypokalemiaresolved -K 3.5, will replete and monitor #Advanced care planning -Disease education conducted, care plan discussed, diagnoses discussed, prognosis discussed, and patient + acknowledges understanding with care plan -Time: +30 min #Discharge planning - Case management has been made aware. - Discharge is tentatively 08/22/2022. Disposition Plan: Pending possible discharge home tomorrow Total Time Spent with Patient (Minutes): 45 min History Interval history: No acute events overnight. Hospitalist Physical - Constitutional Vitals: Temp Pulse Resp BP Pulse Ox 99.2 F 89 18 129/77 97 08/21/22 11:27 08/21/22 11:27 08/21/22 11:27 08/21/22 11:27 08/21/22 11:27 General appearance: Present: no acute distress, well-nourished - EENT Eyes: Present: PERRL, EOM intact ENT: hearing intact, clear oral mucosa, dentition normal - Neck Neck: Present: supple, normal ROM - Respiratory Respiratory effort: normal Respiratory: bilateral: CTA - Cardiovascular Rhythm: regular Heart Sounds: Present: S1 & S2 - Extremities Extremities: no ischemia, pulses intact, pulses symmetrical, No edema, normal temperature, normal color, Full ROM Peripheral Pulses: within normal limits - Abdominal General gastrointestinal: soft, non-tender, non-distended, normal bowel sounds - Integumentary Integumentary: Present: clear, warm, dry, jaundice - Psychiatric Psychiatric: appropriate mood/affect, intact judgment & insight, memory intact, cooperative - Neurologic Neurologic: CNII-XII intact, moves all extremities - Allied Health Allied health notes reviewed: nursing Results - Labs CBC & Chem 7: 08/19/22 05:51 08/20/22 04:45 Labs: Laboratory Last Values WBC 8.8 K/mm3 (4.5-11.0) 08/19/22 05:51 RBC 3.10 M/mm3 (3.65-5.03) L 08/19/22 05:51 Hgb 8.6 gm/dl (10.1-14.3) L 08/19/22 05:51 Hct 26.3 % (30.3-42.9) L 08/19/22 05:51 MCV 85 fl (79-97) 08/19/22 05:51 MCH 28 pg (28-32) 08/19/22 05:51 MCHC 33 % (30-34) 08/19/22 05:51 RDW 17.7 % (13.2-15.2) H 08/19/22 05:51 Plt Count 204 K/mm3 (140-440) 08/19/22 05:51 Lymph % (Auto) 14.5 % (13.4-35.0) 08/19/22 05:51 [place] % (Auto) 5.5 % (0.0-7.3) 08/19/22 05:51 Eos % (Auto) 0.7 % (0.0-4.3) 08/19/22 05:51 Baso % (Auto) 0.2 % (0.0-1.8) 08/19/22 05:51 Lymph # (Auto) 1.3 K/mm3 (1.2-5.4) 08/19/22 05:51 [place] # (Auto) 0.5 K/mm3 (0.0-0.8) 08/19/22 05:51 Eos # (Auto) 0.1 K/mm3 (0.0-0.4) 08/19/22 05:51 Baso # (Auto) 0.0 K/mm3 (0.0-0.1) 08/19/22 05:51 Add Manual Diff Complete 08/18/22 07:34 Total Counted 100 08/18/22 07:34 Seg Neutrophils % 79.1 % (40.0-70.0) H 08/19/22 05:51 Seg Neuts % (Manual) 89.0 % (40.0-70.0) H 08/18/22 07:34 Band Neutrophils % 3.0 % 08/18/22 07:34 Lymphocytes % (Manual) 6.0 % (13.4-35.0) L 08/18/22 07:34 Reactive Lymphs % (Man) 0 % 08/18/22 07:34 Monocytes % (Manual) 0 % (0.0-7.3) 08/18/22 07:34 Eosinophils % (Manual) 0 % (0.0-4.3) 08/18/22 07:34 Basophils % (Manual) 0 % (0.0-1.8) 08/18/22 07:34 Metamyelocytes % 2.0 % 08/18/22 07:34 Myelocytes % 0 % 08/18/22 07:34 Promyelocytes % 0 % 08/18/22 07:34 Blast Cells % 0 % 08/18/22 07:34 Nucleated RBC % Not Reportable 08/18/22 07:34 Seg Neutrophils # 6.9 K/mm3 (1.8-7.7) 08/19/22 05:51 Seg Neutrophils # Man 8.0 K/mm3 (1.8-7.7) H 08/18/22 07:34 Band Neutrophils # 0.3 K/mm3 08/18/22 07:34 Lymphocytes # (Manual) 0.5 K/mm3 (1.2-5.4) L 08/18/22 07:34 Abs React Lymphs (Man) 0.0 K/mm3 08/18/22 07:34 Monocytes # (Manual) 0.0 K/mm3 (0.0-0.8) 08/18/22 07:34 Eosinophils # (Manual) 0.0 K/mm3 (0.0-0.4) 08/18/22 07:34 Basophils # (Manual) 0.0 K/mm3 (0.0-0.1) 08/18/22 07:34 Metamyelocytes # 0.2 K/mm3 08/18/22 07:34 Myelocytes # 0.0 K/mm3 08/18/22 07:34 Promyelocytes # 0.0 K/mm3 08/18/22 07:34 Blast Cells # 0.0 K/mm3 08/18/22 07:34 WBC Morphology Not Reportable 08/18/22 07:34 Hypersegmented Neuts Not Reportable 08/18/22 07:34 Hyposegmented Neuts Not Reportable 08/18/22 07:34 Hypogranular Neuts Not Reportable 08/18/22 07:34 Smudge Cells Not Reportable 08/18/22 07:34 Toxic Granulation 1+ 08/18/22 07:34 Toxic Vacuolation Not Reportable 08/18/22 07:34 Dohle Bodies Not Reportable 08/18/22 07:34 Pelger-Huet Anomaly Not Reportable 08/18/22 07:34 Yolanda Rods Not Reportable 08/18/22 07:34 Platelet Estimate Consistent w auto 08/18/22 07:34 Clumped Platelets Not Reportable 08/18/22 07:34 Plt Clumps, EDTA Not Reportable 08/18/22 07:34 Large Platelets Not Reportable 08/18/22 07:34 Giant Platelets Not Reportable 08/18/22 07:34 Platelet Satelliting Not Reportable 08/18/22 07:34 Plt Morphology Comment Not Reportable 08/18/22 07:34 RBC Morphology Not Reportable 08/18/22 07:34 Dimorphic RBCs Not Reportable 08/18/22 07:34 Polychromasia Not Reportable 08/18/22 07:34 Hypochromasia 1+ 08/18/22 07:34 Poikilocytosis Not Reportable 08/18/22 07:34 Anisocytosis Not Reportable 08/18/22 07:34 Microcytosis Not Reportable 08/18/22 07:34 Macrocytosis Not Reportable 08/18/22 07:34 Spherocytes Not Reportable 08/18/22 07:34 Pappenheimer Bodies Not Reportable 08/18/22 07:34 Sickle Cells Not Reportable 08/18/22 07:34 Target Cells Not Reportable 08/18/22 07:34 Tear Drop Cells Not Reportable 08/18/22 07:34 Ovalocytes Not Reportable 08/18/22 07:34 Helmet Cells Not Reportable 08/18/22 07:34 [place] Bodies Not Reportable 08/18/22 07:34 Pepin Rings Not Reportable 08/18/22 07:34 Sonido Cells Not Reportable 08/18/22 07:34 Bite Cells Not Reportable 08/18/22 07:34 Crenated Cell Not Reportable 08/18/22 07:34 Elliptocytes Not Reportable 08/18/22 07:34 Acanthocytes (Spur) Not Reportable 08/18/22 07:34 Rouleaux Not Reportable 08/18/22 07:34 Hemoglobin C Crystals Not Reportable 08/18/22 07:34 Schistocytes Not Reportable 08/18/22 07:34 Malaria parasites Not Reportable 08/18/22 07:34 Rob Bodies Not Reportable 08/18/22 07:34 Hem Pathologist Commnt No 08/18/22 07:34 Sodium 141 mmol/L (137-145) 08/20/22 04:45 Potassium 3.8 mmol/L (3.6-5.0) 08/20/22 04:45 Chloride 107.2 mmol/L (98-107) H 08/20/22 04:45 Carbon Dioxide 20 mmol/L (22-30) L 08/20/22 04:45 Anion Gap 18 mmol/L 08/20/22 04:45 BUN 7 mg/dL (7-17) 08/20/22 04:45 Creatinine 0.2 mg/dL (0.6-1.2) L 08/20/22 04:45 Estimated GFR > 60 ml/min 08/20/22 04:45 BUN/Creatinine Ratio 35 % 08/20/22 04:45 Glucose 145 mg/dL (65-100) H 08/20/22 04:45 POC Glucose 239 mg/dL (70-105) H 08/21/22 11:25 Lactic Acid 1.70 mmol/L (0.7-2.0) 08/19/22 15:06 Calcium 8.1 mg/dL (8.4-10.2) L 08/20/22 04:45 Ferritin 550.4 ng/mL (10.0-200.0) H 08/21/22 08:08 Total Bilirubin 8.70 mg/dL (0.1-1.2) H 08/21/22 08:08 Direct Bilirubin 7.7 mg/dL (0-0.2) H 08/21/22 08:08 Indirect Bilirubin 1.0 mg/dL 08/21/22 08:08 AST 313 units/L (5-40) H 08/21/22 08:08 ALT 159 units/L (7-56) H 08/21/22 08:08 Alkaline Phosphatase 779 units/L (35-129) H 08/21/22 08:08 Total Protein 5.4 g/dL (6.3-8.2) L 08/21/22 08:08 Albumin 2.9 g/dL (3.9-5) L 08/21/22 08:08 Albumin/Globulin Ratio 1.2 % 08/21/22 08:08 Urine Color Daniela (Yellow) 08/18/22 Unknown Urine Turbidity Clear (Clear) 08/18/22 Unknown Specific [place] (Man) 1.008 (1.003-1.030) 08/18/22 Unknown Ur Protein (Man) Negative mg/dL (Negative) 08/18/22 Unknown Ur Ketones (Man) Negative (Negative) 08/18/22 Unknown Ur Nitrite (Man) Negative (Negative) 08/18/22 Unknown Urine Bilirubin (Man) Negative (Negative) 08/18/22 Unknown Urine Ictotest Not Reportable 08/18/22 Unknown Leukocyte Esterase (Man) Negative (Negative) 08/18/22 Unknown Urine WBC (Auto) 1.0 /HPF (0.0-6.0) 08/18/22 Unknown Urine RBC (Auto) 3.0 /HPF (0.0-6.0) 08/18/22 Unknown U Epithel Cells (Auto) < 1.0 /HPF (0-13.0) 08/18/22 Unknown Urine RBC (Manual) Negative (Negative) 08/18/22 Unknown Hepatitis A IgM Ab Non-reactive (NonReactive) 08/19/22 05:51 Hep Bs Antigen Non-reactive (Negative) 08/19/22 05:51 Hep B Core IgM Ab Non-reactive (NonReactive) 08/19/22 05:51 Hepatitis C Antibody Non-reactive (NonReactive) 08/19/22 05:51 Microbiology: Microbiology 08/18/22 07:34 Peripheral/Venous Blood Culture - Preliminary NO GROWTH AFTER 72 HOURS 08/18/22 07:34 Peripheral/Venous Blood Culture - Preliminary NO GROWTH AFTER 72 HOURS Cervantes/IV: Voiding Method Bedside Commode Active Medications - Current Medications Current Medications: Generic Name Dose Route Start Last Admin Trade Name Freq PRN Reason Stop Dose Admin Acetaminophen 650 mg 08/18/22 14:27 08/21/22 06:05 Acetaminophen 325 Mg Tab PO 650 mg Q4H PRN Administration Pain MILD(1-3)/Fever >100.5/[id number] Albuterol 2.5 mg 08/18/22 14:27 Albuterol 2.5 Mg/3 Ml Nebu IH Q4HRT PRN Shortness Of Breath Gabapentin 300 mg 08/19/22 12:00 08/21/22 11:56 Gabapentin 300 Mg Cap PO 300 mg BID ANURADHA Administration Hydromorphone HCl 0.5 mg 08/18/22 14:27 08/19/22 06:06 Hydromorphone 0.5 Mg/0.5 Ml Inj IV 0.5 mg Q13H PRN Administration Pain , Severe (7-10) Sodium Chloride 1,000 mls @ 125 mls/hr 08/18/22 14:30 08/21/22 04:44 Nacl 0.9% 1000 Ml IV 125 mls/hr DIRECT ANURADHA Administration Insulin Human Lispro 0 unit 08/20/22 23:05 08/21/22 11:57 Insulin Lispro 100 Unit/Ml SUB-Q 3 unit ACHS ANURADHA Administration Protocol Ondansetron HCl 4 mg 08/18/22 14:27 Ondansetron 4 Mg/2 Ml Inj IV Q8H PRN Nausea And Vomiting Oxycodone/Acetaminophen 1 tab 08/18/22 14:27 08/21/22 13:48 Oxycodone /Acetaminophen 5-325mg Tab PO 1 tab Q6H PRN Administration Pain, Moderate (4-6) Prednisone 40 mg 08/21/22 17:00 Prednisone 20 Mg Tab PO QDAY ANURADHA Sodium Chloride 10 ml 08/18/22 22:00 08/21/22 11:57 Sodium Chloride 0.9% 10 Ml Flush Syringe IV 10 ml BID ANURADHA Administration Sodium Chloride 10 ml 08/18/22 14:27 Sodium Chloride 0.9% 10 Ml Flush Syringe IV PRN PRN LINE FLUSH
[2022-08-21] MEDS ORDERED: predniSONE 20 MG TAB PO SCH (17:00)
[2022-08-22] MEDS: oxyCODONE /ACETAMINOPHEN 5-325MG TAB PO PRN (03:24)
[2022-08-22 05:30] LABS: Alanine Aminotransferase 211 units/L (7-56); Albumin 2.8 g/dL (3.9-5); Blood Urea Nitrogen 3 mg/dL (7-17); Calcium 8.1 mg/dL (8.4-10.2); Hemolysis Index 0
[2022-08-22 05:46] LABS: BUN/Creatinine Ratio 15
[2022-08-22] MEDS ORDERED: POTASSIUM CHLORIDE ER 20 MEQ TAB PO ONE ×2 (06:23→14:52)
[2022-08-22] MEDS ORDERED: POTASSIUM CHLORIDE ER 20 MEQ TAB PO SCH (08:00)
[2022-08-22] MEDS: predniSONE 5 MG TAB PO SCH ×2 (08:23→09:35)
[2022-08-22] MEDS: INSULIN LISPRO 100 UNIT/ML SUB-Q SCH ×3 (08:24→17:43)
[2022-08-22] MEDS: POTASSIUM CHLORIDE 10 MEQ 10 MEQ/100 ML BAG IV SCH ×4 (08:32→13:59)
[2022-08-22] MEDS: GABAPENTIN 300 MG CAP PO SCH (09:35)
[2022-08-22 10:11] LABS: INR 0.87 (0.87-1.13)
--- NOTE | 2022-08-22 11:30 | Discharge Summary ---
Providers - Providers Date of Admission: 08/18/22 14:27 Date of discharge: 08/22/22 Attending physician: ANA ARMANDO MD 08/20/22 11:53 Consult to Physician [CONS] Routine Comment: Consulting Provider: GUNNAR LITTLEJOHN Physician Instructions: Reason For Exam: Worsening hyperbilirubinemia Primary care physician: SALLY ZABALA Hospitalization Reason for admission: Sepsis, acidosis Condition: Serious Pertinent studies: Reviewed. Procedures: None. Hospital course: Patient is a 52 YO Female with MS presents to ED for evaluation. Patient reports around feel well". Patient states that she had experienced fever, chills over the past 4 days after undergoing infusion of another medication for MS. patient was seen and evaluated by her primary care physician and was found to have fever and was instructed to seek further care. Patient transported to [facility] via private vehicle for further care and evaluation of the aforementioned symptoms. The patient was seen and evaluated in the emergency department. Lab and imaging studies reviewed. Patient found to have systemic inflammatory response syndrome, metabolic acidosis, secondary to infusion reaction. Patient treated with empiric IV antibiotic therapy and admitted to medical floor due to increased risk of worsening symptoms after medical stabilization. Labs were remarkable for hemoglobin 8.9, lactic acid 2.9, total bilirubin 5.2, AST 43, ALT 86, alkaline phosphatase 282, total protein 5.2, and albumin 3.1. Patient was evaluated for hepatitis that was found to be unremarkable. The patient's urinalysis was also unremarkable. Patient underwent abdominal ultrasound and CT abdomen pelvis with contrast that revealed a contracted gallbladder with possible right-sided pleural effusions but negative for masses or known obstructions. Gastroenterology was consulted for further management, and they recommended autoimmune work-up. The patient's LFTs continue to increase; however, she remains asymptomatic aside from having jaundice. The patient is hemodynamically stable without any complaints. The patient will follow-up with gastroenterology in the outpatient setting in regards to her autoimmune work-up. Patient expressed understanding. Patient is medically clear for discharge. Disposition: 01 HOME / SELF CARE / HOMELESS Final Discharge Diagnosis (Prints w/discharge instructions): Sepsisruled out, hyperbilirubinemia, elevated transaminases, normocytic anemia, metabolic acidosis, lactic acidosis, multiple sclerosis, insulin-dependent type 2 diabetes mellitus, hypokalemia Time spent for discharge: 45 min Core Measure Documentation - Palliative Care Palliative Care/ Comfort Measures: Not Applicable - Core Measures Any of the following diagnoses?: none Exam - Constitutional Vitals: Temp Pulse Resp BP Pulse Ox 99.1 F 100 H 18 134/83 97 08/22/22 05:06 08/22/22 05:06 08/22/22 05:06 08/22/22 05:06 08/22/22 05:06 General appearance: Present: no acute distress, well-nourished - EENT Eyes: Present: PERRL, EOM intact, scleral icterus ENT: hearing intact, clear oral mucosa, dentition normal - Neck Neck: Present: supple, normal ROM - Respiratory Respiratory effort: normal Respiratory: bilateral: CTA - Cardiovascular Rhythm: regular Heart Sounds: Present: S1 & S2 - Extremities Extremities: no ischemia, pulses intact, pulses symmetrical, No edema, normal temperature, normal color, Full ROM Peripheral Pulses: within normal limits - Abdominal General gastrointestinal: Present: soft, non-tender, non-distended, normal bowel sounds Female genitourinary: Present: deferred - Rectal Rectal Exam: deferred - Integumentary Integumentary: Present: clear, warm, dry, jaundice - Musculoskeletal Musculoskeletal: strength equal bilaterally - Psychiatric Psychiatric: appropriate mood/affect, intact judgment & insight, memory intact, cooperative - Neurologic Neurologic: CNII-XII intact, moves all extremities - Allied Health Allied health notes reviewed: nursing Plan Activity: no restrictions Diet: diabetic Special Instructions: other (Avoid acetaminophen/Tylenol and alcohol) Additional Instructions: Patient is a 52 YO Female with MS presents to ED for evaluation. Patient reports around feel well". Patient states that she had experienced fever, chills over the past 4 days after undergoing infusion of another medication for MS. patient was seen and evaluated by her primary care physician and was found to have fever and was instructed to seek further care. Patient transported to [facility] via private vehicle for further care and evaluation of the aforementioned symptoms. The patient was seen and evaluated in the emergency department. Lab and imaging studies reviewed. Patient found to have systemic inflammatory response syndrome, metabolic acidosis, secondary to infusion reaction. Patient treated with empiric IV antibiotic therapy and admitted to medical floor due to increased risk of worsening symptoms after medical stabilization. Labs were remarkable for hemoglobin 8.9, lactic acid 2.9, total bilirubin 5.2, AST 43, ALT 86, alkaline phosphatase 282, total protein 5.2, and albumin 3.1. Patient was evaluated for hepatitis that was found to be unremarkable. The patient's urinalysis was also unremarkable. Patient underwent abdominal ultrasound and CT abdomen pelvis with contrast that revealed a contracted gallbladder with possible right-sided pleural effusions but negative for masses or known obstructions. Gastroenterology was consulted for further management, and they recommended autoimmune work-up. The patient's LFTs continue to increase; however, she remains asymptomatic aside from having jaundice. The patient is hemodynamically stable without any complaints. The patient will follow-up with gastroenterology in the outpatient setting in regards to her autoimmune work-up. Patient expressed understanding. Patient is medically clear for discharge. Care Plan Goals: Patient is medically clear for discharge. Assessment: Patient is a 52 YO Female with MS presents to ED for evaluation. Patient reports around feel well". Patient states that she had experienced fever, chills over the past 4 days after undergoing infusion of another medication for MS. patient was seen and evaluated by her primary care physician and was found to have fever and was instructed to seek further care. Patient transported to [facility] via private vehicle for further care and evaluation of the aforementioned symptoms. The patient was seen and evaluated in the emergency department. Lab and imaging studies reviewed. Patient found to have systemic inflammatory response syndrome, metabolic acidosis, secondary to infusion reaction. Patient treated with empiric IV antibiotic therapy and admitted to medical floor due to increased risk of worsening symptoms after medical stabilization. Labs were remarkable for hemoglobin 8.9, lactic acid 2.9, total bilirubin 5.2, AST 43, ALT 86, alkaline phosphatase 282, total protein 5.2, and albumin 3.1. Patient was evaluated for hepatitis that was found to be unremarkable. The patient's urinalysis was also unremarkable. Patient underwent abdominal ultrasound and CT abdomen pelvis with contrast that revealed a contracted gallbladder with poss ible right-sided pleural effusions but negative for masses or known obstructions. Gastroenterology was consulted for further management, and they recommended autoimmune work-up. The patient's LFTs continue to increase; however, she remains asymptomatic aside from having jaundice. The patient is hemodynamically stable without any complaints. The patient will follow-up with gastroenterology in the outpatient setting in regards to her autoimmune work-up. Patient expressed understanding. Patient is medically clear for discharge. Follow up with: MICHEL GARCIA MD [Staff Physician] - 7 Days Forms: Work/School Release Form
[2022-08-22 17:05] LABS: Blood Urea Nitrogen 6 mg/dL (7-17); Calcium 8.7 mg/dL (8.4-10.2); Hemolysis Index 0
[2022-08-22 17:07] LABS: BUN/Creatinine Ratio 30
--- NOTE | 2022-08-22 17:54 | Gastroenterology Progress Note ---
Assessment and Plan # Elevated LFTs - suspect 2/2 DILI - viral hep panel negative. - LFTs stable. - INR normal. - planned for discharge today. patient to follow up with GI at [place] for follow up LFTs. - autoimmune serology labs pending. Subjective Date of service: 08/22/22 Interval history: Patient states doing well. No abdominal pain or nausea/vomiting. Objective - Constitutional Vitals: Temp Pulse Resp BP Pulse Ox 99.1 F 100 H 18 134/83 98 08/22/22 05:06 08/22/22 05:06 08/22/22 05:06 08/22/22 05:06 08/22/22 11:36 General appearance: no acute distress - EENT Eyes: EOM intact ENT: hearing intact - Neck Neck: supple - Respiratory Respiratory effort: normal - Cardiovascular Rhythm: regular Heart Sounds: Present: S1 & S2 - Gastrointestinal General gastrointestinal: Present: soft, non-tender, non-distended - Integumentary Integumentary: Present: clear, warm - Neurologic Neurological: alert and oriented x3 - Labs CBC & Chem 7: 08/19/22 05:51 08/22/22 14:52 Labs: Laboratory Results - last 24 hr 08/22/22 08/22/22 08/22/22 04:43 04:43 07:48 ESR > 140.0 PT 13.0 INR 0.87 Sodium 140 Potassium 2.9 L* D Chloride 100.7 Carbon Dioxide 22 Anion Gap 20 BUN 3 L Creatinine 0.2 L Estimated GFR > 60 BUN/Creatinine Ratio 15 Glucose 113 H POC Glucose Calcium 8.1 L Total Bilirubin 8.00 H AST 347 H ALT 211 H Alkaline Phosphatase 775 H C-Reactive Protein 6.00 H Total Protein 5.2 L Albumin 2.8 L Albumin/Globulin Ratio 1.2 08/22/22 08/22/22 11:02 14:52 ESR PT INR Sodium 136 L Potassium 4.7 D Chloride 98.3 Carbon Dioxide 21 L Anion Gap 21 BUN 6 L Creatinine 0.2 L Estimated GFR > 60 BUN/Creatinine Ratio 30 Glucose 221 H POC Glucose 209 H Calcium 8.7 Total Bilirubin AST ALT Alkaline Phosphatase C-Reactive Protein Total Protein Albumin Albumin/Globulin Ratio
[2022-08-22 18:47] VITALS: BP 114/81
== END 2022-08-22 18:00 | disposition home or self-care (01) | DRG 315 ==
LOC: ED 05:55 → 3A 14:27
PROVIDERS: ADMIT Internal Medicine; ATTEND Student in an Organized Health Care Education/Training Program
DX: T80.90XA Unspecified complication following infusion and therapeutic injection, initial encounter (principal); E87.2 Acidosis; R65.10 Systemic inflammatory response syndrome (SIRS) of non-infectious origin without acute organ dysfunction; R78.81 Bacteremia; G35 Multiple sclerosis; E11.9 Type 2 diabetes mellitus without complications; E87.6 Hypokalemia; Z88.8 Allergy status to other drugs, medicaments and biological substances; Y83.8 Other surgical procedures as the cause of abnormal reaction of the patient, or of later complication, without mention of misadventure at the time of the procedure; Y92.89 Other specified places as the place of occurrence of the external cause; D64.9 Anemia, unspecified; E80.6 Other disorders of bilirubin metabolism; Z79.4 Long term (current) use of insulin
CPT/HCPCS: 36415; 70450; 71045; 74177; 76700; 80048; 80053; 80074; 80076; 81001; 82140; 82247; 82248; 82728; 82962; 83520; 85007; 85025; 85610; 85652; 86038; 86140; 86235; 87040; 87086; 93005; 94760; 96365; 96366; 99285; G0378; Q9967; J1170; J1815; J2543; J3370; J3480; J7030; J7512

== ENCOUNTER 2022-08-24 10:10 | Inpatient (IN) | payer OTHER ==
[2022-08-24] MEDS ORDERED: SODIUM CHLORIDE 0.9% 1000 ML 1,000 ML IV ONE (10:58)
--- NOTE | 2022-08-24 11:32 | XRay Report ---
CHEST 1 VIEW 08/24/2022 10:11 AM INDICATION / CLINICAL INFORMATION: Altered Mental Status. COMPARISON: 08/18/2022 FINDINGS: SUPPORT DEVICES: None. HEART / MEDIASTINUM: No significant abnormality. LUNGS / PLEURA: No significant pulmonary or pleural abnormality. No pneumothorax. ADDITIONAL FINDINGS: No significant additional findings. IMPRESSION: 1. No acute findings. Signer Name: Vitaliy Acosta MD Signed: 08/24/2022 11:28 AM Workstation Name: [id number]
[2022-08-24 11:38] LABS: Hematocrit 26.1 % (30.3-42.9); Hemoglobin 8.7 gm/dl (10.1-14.3); Mean Corpuscular HGB Conc 34 % (30-34); Mean Corpuscular Volume 83 fl (79-97); Platelet Count 470 K/mm3 (140-440); Red Blood Count 3.16 M/mm3 (3.65-5.03); Red Cell Distribution Width 17.8 % (13.2-15.2)
[2022-08-24 12:22] LABS: Alanine Aminotransferase 182 units/L (7-56); Albumin 2.9 g/dL (3.9-5); Blood Urea Nitrogen 21 mg/dL (7-17); Calcium 8.3 mg/dL (8.4-10.2); Hemolysis Index 2
[2022-08-24 12:23] LABS: BUN/Creatinine Ratio 70
[2022-08-24 12:28] LABS: INR 1.08 (0.87-1.13)
[2022-08-24 13:00] LABS: Basophils % (Manual) 0 % (0.0-1.8); Eosinophils % (Manual) 0 % (0.0-4.3); Hypochromasia 1+; Monocytes % (Manual) 0 % (0.0-7.3); Target Cells 1+; Total Cells Counted 100
[2022-08-24 13:01] LABS: Anisocytosis 1+; Platelet Estimate Consistent w Auto
--- NOTE | 2022-08-24 14:47 | Emergency Department Report ---
ED General Adult HPI - General Chief complaint: Weakness Stated complaint: HYPOTENSION.WEAKNESS PUI?: No Time Seen by Provider: 08/24/22 10:56 Source: patient, EMS Mode of arrival: Stretcher Limitations: No Limitations - History of Present Illness Initial comments: HYPOTENSION AND WEAKNESS SINCE 08/23 pt has MS was recently discharged from hospital recently for hepatitis , was sent again by [facility] for increasing wekaness nonausea or vomiting Severity scale (0 -10): 0 - Related Data Home Medications Medication Instructions Recorded Confirmed Last Taken Gabapentin 300 mg PO BID 08/19/22 08/19/22 Unknown Insulin Glargine [Lantus VIAL] 10 unit SUB-Q QAM 08/19/22 08/19/22 Unknown Prednisone [predniSONE (Andreina) ER 5 mg PO QDAY 08/19/22 08/19/22 08/18/22 08:00 TAB] azaTHIOprine [Imuran] 50 mg PO BID 08/19/22 08/19/22 Unknown glipiZIDE [Glucotrol] 5 mg PO BID 08/19/22 08/19/22 08/18/22 08:00 Allergies Allergy/AdvReac Type Severity Reaction Status Date / Time lisinopril Allergy Unknown Verified 08/24/22 10:33 ED Review of Systems ROS: Stated complaint: HYPOTENSION.WEAKNESS Other details as noted in HPI Constitutional: denies: chills, fever Eyes: denies: eye pain, eye discharge, vision change ENT: denies: ear pain, throat pain Respiratory: denies: cough, shortness of breath, wheezing Cardiovascular: denies: chest pain, palpitations Endocrine: no symptoms reported Gastrointestinal: denies: abdominal pain, nausea, diarrhea Genitourinary: denies: urgency, dysuria, discharge Musculoskeletal: denies: back pain, joint swelling, arthralgia Skin: denies: rash, lesions Neurological: denies: headache, weakness, paresthesias Psychiatric: denies: anxiety, depression Hematological/Lymphatic: denies: easy bleeding, easy bruising ED Past Medical Hx - Past Medical History Hx Hypertension: Yes Hx Congestive Heart Failure: No Hx Diabetes: Yes Hx Liver Disease: No Hx Asthma: No Hx COPD: No Hx Tuberculosis: No Hx HIV: No - Surgical History Hx Coronary Stent: No Hx Open Heart Surgery: No Hx Pacemaker: No - Social History Smoking Status: Never Smoker Substance Use Type: None - Medications Home Medications: Home Medications Medication Instructions Recorded Confirmed Last Taken Type Gabapentin 300 mg PO BID 08/19/22 08/19/22 Unknown History Insulin Glargine [Lantus VIAL] 10 unit SUB-Q QAM 08/19/22 08/19/22 Unknown History Prednisone [predniSONE (Andreina) ER 5 mg PO QDAY 08/19/22 08/19/22 08/18/22 08:00 History TAB] azaTHIOprine [Imuran] 50 mg PO BID 08/19/22 08/19/22 Unknown History glipiZIDE [Glucotrol] 5 mg PO BID 08/19/22 08/19/22 08/18/22 08:00 History ED Physical Exam - General Limitations: No Limitations General appearance: alert, other (weak and jaundiced ) - Head Head exam: Present: atraumatic, normocephalic - Eye Eye exam: Present: scleral icterus Pupils: Present: normal accommodation - ENT ENT exam: Present: mucous membranes moist - Neck Neck exam: Present: normal inspection - Respiratory Respiratory exam: Present: normal lung sounds bilaterally. Absent: respiratory distress - Cardiovascular Cardiovascular Exam: Present: normal rhythm, tachycardia. Absent: systolic murmur, diastolic murmur, rubs, gallop - GI/Abdominal GI/Abdominal exam: Present: soft, normal bowel sounds - Extremities Exam Extremities exam: Present: normal inspection - Back Exam Back exam: Present: normal inspection - Neurological Exam Neurological exam: Present: alert, oriented X3 - Psychiatric Psychiatric exam: Present: normal affect, normal mood - Skin Skin exam: Present: other (jaundice). Absent: rash ED Course Vital Signs 08/24/22 08/24/22 10:10 11:32 Temperature 98.3 F 98.7 F Pulse Rate 124 H 115 H Respiratory 18 24 Rate Blood Pressure 100/65 Blood Pressure 114/70 [Left] O2 Sat by Pulse 99 97 Oximetry ED Medical Decision Making - Lab Data Result diagrams: 08/24/22 11:24 08/24/22 11:24 - Radiology Data Radiology results: report reviewed, image reviewed - Medical Decision Making work up shwoed : sepsis : fuids cultures and lactic - hypotension fluids given x ay clear will admit spoke with [place] physician dr Dunn who approved admission ehere Critical care attestation.: If time is entered above; I have spent that time in minutes in the direct care of this critically ill patient, excluding procedure time. ED Disposition Clinical Impression: Sepsis, Hypotension, Weakness, Leukocytosis, Jaundice, Tachycardia Disposition: 09 ADMITTED INPATIENT Is pt being admited?: Yes Does the pt Need Aspirin: No Condition: Fair Referrals: PRIMARY CARE,MD [Primary Care Provider] - 3-5 Days
[2022-08-24] MEDS ORDERED: ACETAMINOPHEN 325 MG TAB PO PRN (15:11)
[2022-08-24] MEDS ORDERED: MORPHINE 2 MG/1 ML INJ IV PRN (15:11)
[2022-08-24] MEDS ORDERED: ONDANSETRON 4 MG/2 ML INJ IV PRN (15:11)
[2022-08-24] MEDS ORDERED: SODIUM CHLORIDE 0.9% 1000 ML 1,000 ML IV SCH (15:15)
[2022-08-24] MEDS: HEPARIN 5,000 UNIT/1 ML VIAL SUB-Q SCH ×2 (16:19→21:10)
[2022-08-24] MEDS: CEFEPIME/NS 2 GM/100 ML 2 GM/100 ML BAG IV SCH (16:19)
[2022-08-24 17:20] LABS: Bilirubin,Urine MOD (Negative); Blood,Urine SM (Negative); Color,Urine Amber (Yellow); Protein,Urine <15 mg/dL mg/dL (Negative)
[2022-08-24 18:02] LABS: Ictotest,Urine Positive (Negative); RBC,Urine > 1.0 /HPF (0.0-6.0)
--- NOTE | 2022-08-24 19:24 | Gastroenterology Consultation ---
History of Present Illness - Reason for Consult Consult date: 08/24/22 Requesting physician: ARIC CLAROS - History of Present Illness This is a 52-year-old female with history of MS and recent admission for elevated liver enzymes and jaundice presenting to the hospital for worsening weakness, nausea, and jaundice. Patient was discharged over the weekend after being evaluated for elevated liver enzymes. Patient reports having worsening weakness and dizziness and nausea without any vomiting. Patient noted to have worsening jaundice on exam and came back to the hospital for further evaluation. Patient noted to have worsening elevation of liver enzymes with T bili at 15.9 up from 8 on the , ALT 182, alk phos 728 from 775 on the . Also noted to have new leukocytosis with white count at 24.9 and lactic acid elevated at 3.5. . Medication list reviewed. Past History Past Medical History: other (ms) Past Surgical History: No surgical history Social history: lives with family Family history: no significant family history Medications and Allergies Allergies Allergy/AdvReac Type Severity Reaction Status Date / Time lisinopril Allergy Unknown Verified 08/24/22 10:33 Home Medications Medication Instructions Recorded Confirmed Last Taken Type Gabapentin 300 mg PO BID 08/19/22 08/19/22 Unknown History Insulin Glargine [Lantus VIAL] 10 unit SUB-Q QAM 08/19/22 08/19/22 Unknown History Prednisone [predniSONE (Andreina) ER 5 mg PO QDAY 08/19/22 08/19/22 08/18/22 08:00 History TAB] azaTHIOprine [Imuran] 50 mg PO BID 08/19/22 08/19/22 Unknown History glipiZIDE [Glucotrol] 5 mg PO BID 08/19/22 08/19/22 08/18/22 08:00 History Active Meds: Active Medications Acetaminophen (Acetaminophen 325 Mg Tab) 650 mg PO Q4H PRN PRN Reason: Pain MILD(1-3)/Fever >100.5/GUZMÁN Heparin Sodium (Porcine) (Heparin 5,000 Unit/1 Ml Vial) 5,000 unit SUB-Q Q12HR ANURDAHA Last Admin: 08/24/22 16:19 Dose: 5,000 unit Sodium Chloride (Nacl 0.9% 1000 Ml) 1,000 mls @ 75 mls/hr IV DIRECT ANURADHA Cefepime HCl (Cefepime/Ns 2 Gm/100 Ml) 2 gm in 100 mls @ 200 mls/hr IV Q8H [facility]; Protocol Last Admin: 08/24/22 16:19 Dose: 200 mls/hr Morphine Sulfate (Morphine 2 Mg/1 Ml Inj) 2 mg IV Q4H PRN PRN Reason: Pain, Moderate (4-6) Ondansetron HCl (Ondansetron 4 Mg/2 Ml Inj) 4 mg IV Q3H PRN PRN Reason: Nausea And Vomiting Sodium Chloride (Sodium Chloride 0.9% 10 Ml Flush Syringe) 10 ml IV BID [facility] Last Admin: 08/24/22 16:21 Dose: 10 ml Sodium Chloride (Sodium Chloride 0.9% 10 Ml Flush Syringe) 10 ml IV PRN PRN PRN Reason: LINE FLUSH Review of Systems - Review of Systems All systems: negative Constitutional: weakness Ears, Nose, Throat: no difficulty swallowing Cardiovascular: no chest pain Gastrointestinal: nausea, no abdominal pain, no vomiting, no diarrhea, no constipation Neurological: weakness Endocrine: no cold intolerance Hematologic/Lymphatic: no easy bruising Allergic/Immunologic: no wheezing Exam - Constitutional Vital Signs: Temp Pulse Resp BP Pulse Ox 98.7 F 115 H 24 100/65 97 08/24/22 11:32 08/24/22 11:32 08/24/22 11:32 08/24/22 11:32 08/24/22 11:32 General appearance: no acute distress - EENT Eyes: scleral icterus ENT: hearing intact - Neck Neck: supple - Respiratory Respiratory effort: normal - Cardiovascular Rhythm: regular Heart Sounds: Present: S1 & S2 - Gastrointestinal General gastrointestinal: Present: soft, non-tender, non-distended - Integumentary Integumentary: Present: jaundice - Neurologic Neurological: alert and oriented x3 - Psychiatric Psychiatric: appropriate mood/affect - Labs CBC & Chem 7: 08/24/22 11:24 08/24/22 11:24 Lab Results: Laboratory Results - last 24 hr 08/24/22 08/24/22 08/24/22 11:24 11:24 11:24 WBC 24.9 H RBC 3.16 L Hgb 8.7 L Hct 26.1 L MCV 83 MCH 28 MCHC 34 RDW 17.8 H Plt Count 470 H Lymph # (Auto) Hand Fur Cleaner Add Manual Diff Complete Total Counted 100 Seg Neuts % (Manual) 75.0 H Band Neutrophils % 24.0 Lymphocytes % (Manual) 0 L Reactive Lymphs % (Man) 0 Monocytes % (Manual) 0 Eosinophils % (Manual) 0 Basophils % (Manual) 0 Metamyelocytes % 1.0 Myelocytes % 0 Promyelocytes % 0 Blast Cells % 0 Nucleated RBC % Not Reportable Seg Neutrophils # Man 18.7 H Band Neutrophils # 6.0 Lymphocytes # (Manual) 0.0 L Abs React Lymphs (Man) 0.0 Monocytes # (Manual) 0.0 Eosinophils # (Manual) 0.0 Basophils # (Manual) 0.0 Metamyelocytes # 0.2 Myelocytes # 0.0 Promyelocytes # 0.0 Blast Cells # 0.0 WBC Morphology Not Reportable Hypersegmented Neuts Not Reportable Hyposegmented Neuts Not Reportable Hypogranular Neuts Not Reportable Smudge Cells Not Reportable Toxic Granulation Not Reportable Toxic Vacuolation Not Reportable Dohle Bodies Not Reportable Pelger-Huet Anomaly Not Reportable Yolanda Rods Not Reportable Platelet Estimate Consistent w auto Clumped Platelets Not Reportable Plt Clumps, EDTA Not Reportable Large Platelets Not Reportable Giant Platelets Not Reportable Platelet Satelliting Not Reportable Plt Morphology Comment Not Reportable RBC Morphology Not Reportable Dimorphic RBCs Not Reportable Polychromasia Not Reportable Hypochromasia 1+ Poikilocytosis Not Reportable Anisocytosis 1+ Microcytosis Not Reportable Macrocytosis Not Reportable Spherocytes Not Reportable Pappenheimer Bodies Not Reportable Sickle Cells Not Reportable Target Cells 1+ Tear Drop Cells Not Reportable Ovalocytes Not Reportable Helmet Cells Not Reportable [place] Bodies Not Reportable [place] Rings Not Reportable [place] Cells Not Reportable Bite Cells Not Reportable Crenated Cell Not Reportable Elliptocytes Not Reportable Acanthocytes (Spur) Not Reportable Rouleaux Not Reportable Hemoglobin C Crystals Not Reportable Schistocytes Not Reportable Malaria parasites Not Reportable Rob Bodies Not Reportable Hem Pathologist Commnt No PT 15.6 H INR 1.08 Sodium 131 L Potassium 3.9 Chloride 93.7 L Carbon Dioxide 20 L Anion Gap 21 BUN 21 H Creatinine 0.3 L Estimated GFR > 60 BUN/Creatinine Ratio 70 Glucose 294 H Ketones Quantitative Lactic Acid Calcium 8.3 L Total Bilirubin 15.90 H AST 66 H ALT 182 H Alkaline Phosphatase 728 H Ammonia Total Creatine Kinase 12 L Troponin T < 0.010 C-Reactive Protein 34.60 H NT-Pro-B Natriuret Pep 4485 H Total Protein 5.6 L Albumin 2.9 L Albumin/Globulin Ratio 1.1 Urine Color Urine Turbidity Urine pH Ur Specific [place] Urine Protein Urine Glucose (UA) Urine Ketones Urine Blood Urine Nitrite Urine Bilirubin Urine Ictotest Urine Urobilinogen Ur Leukocyte Esterase Urine WBC (Auto) Urine RBC (Auto) U Epithel Cells (Auto) Salicylates Acetaminophen Plasma/Serum Alcohol 08/24/22 08/24/22 08/24/22 11:24 11:24 11:24 WBC RBC Hgb Hct MCV MCH MCHC RDW Plt Count Lymph # (Auto) Add Manual Diff Total Counted Seg Neuts % (Manual) Band Neutrophils % Lymphocytes % (Manual) Reactive Lymphs % (Man) Monocytes % (Manual) Eosinophils % (Manual) Basophils % (Manual) Metamyelocytes % Myelocytes % Promyelocytes % Blast Cells % Nucleated RBC % Seg Neutrophils # Man Band Neutrophils # Lymphocytes # (Manual) Abs React Lymphs (Man) Monocytes # (Manual) Eosinophils # (Manual) Basophils # (Manual) Metamyelocytes # Myelocytes # Promyelocytes # Blast Cells # WBC Morphology Hypersegmented Neuts Hyposegmented Neuts Hypogranular Neuts Smudge Cells Toxic Granulation Toxic Vacuolation Dohle Bodies Pelger-Huet Anomaly Oylanda Rods Platelet Estimate Clumped Platelets Plt Clumps, EDTA Large Platelets Giant Platelets Platelet Satelliting Plt Morphology Comment RBC Morphology Dimorphic RBCs Polychromasia Hypochromasia Poikilocytosis Anisocytosis Microcytosis Macrocytosis Spherocytes Pappenheimer Bodies Sickle Cells Target Cells Tear Drop Cells Ovalocytes Helmet Cells Law-[place] Bodies [place] Sonido Cells Bite Cells Crenated Cell Elliptocytes Acanthocytes (Spur) Rouleaux Hemoglobin C Crystals Schistocytes Malaria parasites Rob Bodies Hem Pathologist Commnt PT INR Sodium Potassium Chloride Carbon Dioxide Anion Gap BUN Creatinine Estimated GFR BUN/Creatinine Ratio Glucose Ketones Quantitative Lactic Acid 3.50 H* Calcium Total Bilirubin AST ALT Alkaline Phosphatase Ammonia Total Creatine Kinase Troponin T C-Reactive Protein NT-Pro-B Natriuret Pep Total Protein Albumin Albumin/Globulin Ratio Urine Color Urine Turbidity Urine pH Ur Specific [place] Urine Protein Urine Glucose (UA) Urine Ketones Urine Blood Urine Nitrite Urine Bilirubin Urine Ictotest Urine Urobilinogen Ur Leukocyte Esterase Urine WBC (Auto) Urine RBC (Auto) U Epithel Cells (Auto) Salicylates < 0.3 L Acetaminophen 5.0 L Plasma/Serum Alcohol 08/24/22 08/24/22 08/24/22 11:24 11:24 11:24 WBC RBC Hgb Hct MCV MCH MCHC RDW Plt Count Lymph # (Auto) Add Manual Diff Total Counted Seg Neuts % (Manual) Band Neutrophils % Lymphocytes % (Manual) Reactive Lymphs % (Man) Monocytes % (Manual) Eosinophils % (Manual) Basophils % (Manual) Metamyelocytes % Myelocytes % Promyelocytes % Blast Cells % Nucleated RBC % Seg Neutrophils # Man Band Neutrophils # Lymphocytes # (Manual) Abs React Lymphs (Man) Monocytes # (Manual) Eosinophils # (Manual) Basophils # (Manual) Metamyelocytes # Myelocytes # Promyelocytes # Blast Cells # WBC Morphology Hypersegmented Neuts Hyposegmented Neuts Hypogranular Neuts Smudge Cells Toxic Granulation Toxic Vacuolation Dohle Bodies Pelger-Huet Anomaly Yolanda Rods Platelet Estimate Clumped Platelets Plt Clumps, EDTA Large Platelets Giant Platelets Platelet Satelliting Plt Morphology Comment RBC Morphology Dimorphic RBCs Polychromasia Hypochromasia Poikilocytosis Anisocytosis Microcytosis Macrocytosis Spherocytes Pappenheimer Bodies Sickle Cells Target Cells Tear Drop Cells Ovalocytes Helmet Cells Law-[place] Bodies [place] Sonido Cells Bite Cells Crenated Cell Elliptocytes Acanthocytes (Spur) Rouleaux Hemoglobin C Crystals Schistocytes Malaria parasites Rob Bodies Hem Pathologist Commnt PT INR Sodium Potassium Chloride Carbon Dioxide Anion Gap BUN Creatinine Estimated GFR BUN/Creatinine Ratio Glucose Ketones Quantitative Negative Lactic Acid Calcium Total Bilirubin AST ALT Alkaline Phosphatase Ammonia 34.0 Total Creatine Kinase Troponin T C-Reactive Protein NT-Pro-B Natriuret Pep Total Protein Albumin Albumin/Globulin Ratio Urine Color Urine Turbidity Urine pH Ur Specific [place] Urine Protein Urine Glucose (UA) Urine Ketones Urine Blood Urine Nitrite Urine Bilirubin Urine Ictotest Urine Urobilinogen Ur Leukocyte Esterase Urine WBC (Auto) Urine RBC (Auto) U Epithel Cells (Auto) Salicylates Acetaminophen Plasma/Serum Alcohol < 0.01 08/24/22 08/24/22 08/24/22 14:36 16:21 17:03 WBC RBC Hgb Hct MCV MCH MCHC RDW Plt Count Lymph # (Auto) Add Manual Diff Total Counted Seg Neuts % (Manual) Band Neutrophils % Lymphocytes % (Manual) Reactive Lymphs % (Man) Monocytes % (Manual) Eosinophils % (Manual) Basophils % (Manual) Metamyelocytes % Myelocytes % Promyelocytes % Blast Cells % Nucleated RBC % Seg Neutrophils # Man Band Neutrophils # Lymphocytes # (Manual) Abs React Lymphs (Man) Monocytes # (Manual) Eosinophils # (Manual) Basophils # (Manual) Metamyelocytes # Myelocytes # Promyelocytes # Blast Cells # WBC Morphology Hypersegmented Neuts Hyposegmented Neuts Hypogranular Neuts Smudge Cells Toxic Granulation Toxic Vacuolation Dohle Bodies Pelger-Huet Anomaly Yolanda Rods Platelet Estimate Clumped Platelets Plt Clumps, EDTA Large Platelets Giant Platelets Platelet Satelliting Plt Morphology Comment RBC Morphology Dimorphic RBCs Polychromasia Hypochromasia Poikilocytosis Anisocytosis Microcytosis Macrocytosis Spherocytes Pappenheimer Bodies Sickle Cells Target Cells Tear Drop Cells Ovalocytes Helmet Cells Law-[place] Bodies [place] Cells Bite Cells Crenated Cell Elliptocytes Acanthocytes (Spur) Rouleaux Hemoglobin C Crystals Schistocytes Malaria parasites Rob Bodies Hem Pathologist Commnt PT INR Sodium Potassium Chloride Carbon Dioxide Anion Gap BUN Creatinine Estimated GFR BUN/Creatinine Ratio Glucose Ketones Quantitative Lactic Acid 2.20 H* 2.40 H* Calcium Total Bilirubin AST ALT Alkaline Phosphatase Ammonia Total Creatine Kinase Troponin T C-Reactive Protein NT-Pro-B Natriuret Pep Total Protein Albumin Albumin/Globulin Ratio Urine Color Daniela Urine Turbidity Clear Urine pH 5.0 Ur Specific [place] 1.010 Urine Protein <15 mg/dl Urine Glucose (UA) 150 Urine Ketones Neg Urine Blood Sm Urine Nitrite Neg Urine Bilirubin Mod Urine Ictotest Positive Urine Urobilinogen 2.0 Ur Leukocyte Esterase Tr Urine WBC (Auto) 1.0 Urine RBC (Auto) > 1.0 U Epithel Cells (Auto) < 1.0 Salicylates Acetaminophen Plasma/Serum Alcohol Assessment and Plan # Jaundice # Elevated LFTs - T bili at 15.9 up from 8 on the 24th, ALT 182, alk phos 728 from 775 on the 24th. Also noted to have new leukocytosis with white count at 24.9 and lactic acid elevated at 3.5. - recent admission with work up including CT/abdominal US. CT showed reviewed contracted gallbladder containing small amount of sludge with mucosal thickening and edematous wall, no biliary ductal dilation or choledocholithiasis and US with small stones and sludge in the gallbladder. - borderline low BP and tachycardic to low 100s. - lactic acid elevated at 2.4 - concerning for possible biliary obstruction leading to jaundice but patient is not having any abdominal pain and no tenderness on exam. Elevated LFTs previously thought to be drug induced liver injury. patient is not sure about medications that she takes but azathioprine was listed on home meds and patient was on another new medication for MS recently. - acute viral hep panel negative last week. Rec - MRCP ordered by primary team. - ordered repeat labs including cmp, hepatic panel to fractionate Tbili, INR, EBV, HSV serology. - ordered CT a/p with contrast to be done in the meantime while waiting for MRI. - cont with sepsis protocol. - cont with empiric antibiotics. - low threshold for ICU transfer. - will follow up. - Patient Problems (1) Jaundice Current Visit: Yes Status: Acute
[2022-08-24 22:07] LABS: INR 1.01 (0.87-1.13)
--- NOTE | 2022-08-24 22:08 | Cat Scan Report ---
CT ABDOMEN AND PELVIS WITH CONTRAST INDICATION / CLINICAL INFORMATION: jaundice, sepsis. TECHNIQUE: Axial CT images were obtained through the abdomen and pelvis after IV contrast. All CT sc ans at this location are performed using CT dose reduction for ALARA by means of automated exposure c ontrol. COMPARISON: 08/20/2022 FINDINGS: LOWER CHEST: Bibasilar subsegmental atelectasis. LIVER: Hepatic steatosis. GALLBLADDER: Similar adenomyomatosis at the gallbladder fundus. Gallbladder wall thickening is less p ronounced on this exam. BILE DUCTS: No significant abnormality. PANCREAS: No significant abnormality. SPLEEN: No significant abnormality. ADRENALS: No significant abnormality. RIGHT KIDNEY / URETER: No significant abnormality. LEFT KIDNEY / URETER: No significant abnormality. STOMACH / SMALL BOWEL: No significant abnormality. COLON: Similar mild pericolonic fat stranding at the hepatic flexure. APPENDIX: No significant abnormality. PERITONEUM: No free fluid. No free air. No fluid collection. LYMPH NODES: No significant adenopathy. AORTA / ARTERIES: No significant abnormality. IVC / VEINS: No significant abnormality. URINARY BLADDER: No significant abnormality. REPRODUCTIVE ORGANS: No significant abnormality. ADDITIONAL FINDINGS: None. SKELETAL SYSTEM: No significant abnormality. IMPRESSION: 1. Improved gallbladder wall thickening compared to the prior exam. Similar irregular wall thickening at the gallbladder fundus, likely adenomyomatosis. 2. Hepatic steatosis. 3. Similar fat stranding near the hepatic flexure, which could be related to mild colitis. Signer Name: John Silver MD Signed: 08/24/2022 10:03 PM Workstation Name: [id number]
[2022-08-24 22:15] LABS: Alanine Aminotransferase 147 units/L (7-56); Albumin 2.6 g/dL (3.9-5); Blood Urea Nitrogen 16 mg/dL (7-17); Calcium 8.5 mg/dL (8.4-10.2); Hemolysis Index 23
[2022-08-24 22:23] LABS: BUN/Creatinine Ratio 80
[2022-08-24 22:59] LABS: Albumin 2.5 g/dL (3.9-5)
[2022-08-24 23:28] LABS: Bilirubin,Direct 12.4 mg/dL (0-0.2)
[2022-08-25] MEDS: CEFEPIME/NS 2 GM/100 ML 2 GM/100 ML BAG IV SCH ×4 (00:15→23:41)
--- NOTE | 2022-08-25 05:50 | History and Physical Report ---
History of Present Illness Date of examination: 08/24/22 Date of admission: 08/24/22 15:11 Chief complaint: Severe weakness and worsening jaundice for 1 week History of present illness: 53-year-old [place] female with past medical history significant for multiple sclerosis and recent admission from August 18 to August 22 comes in for generalized weakness and worsening jaundice. Patient was worked up for jaundice and sepsis during the last admission. Patient was diagnosed with hepatitis and her last to follow-up with GI for possible autoimmune hepatitis versus primary biliary cholangitis versus primary sclerosing cholangitis. MRCP was not done. Her initial AST 08/18 was 43 which is worsened to 347 on 08/22/2022 and today it is 66. Her initial ALT was 86 on 08/18/2022 which is worsened to 211 on 08/22/2022 and today it is 182. Total bili was 7.1 on 08/18/2022. Is worsened to 8.0 on 08/22/2022 and today it is 15.0 with direct bilirubin being more Alk phos was 282 on 08/18/2022 which is worsened to 775 on 08/22/2022 and today days 728. Patient has worsening alk phos but improving transaminases. Patient generally feels weak with worsening jaundice. Patient says that her stool color is normal. No subjective fever. Of note patient received treatment for multiple sclerosis 4 weeks ago--- probably high-dose Solu-Medrol. Patient was started on azathioprine 50 mg twice a day. No pain. Discharge summary from 08/22/2022(admission from 08/18/2022 through 08/22/2022) Patient is a 52 YO Female with MS presents to ED for evaluation. Patient reports around feel well". Patient states that she had experienced fever, chills over the past 4 days after undergoing infusion of another medication for MS. patient was seen and evaluated by her primary care physician and was found to have fever and was instructed to seek further care. Patient transported to [facility] via private vehicle for further care and evaluation of the aforementioned symptoms. The patient was seen and evaluated in the emergency department. Lab and imaging studies reviewed. Patient found to have systemic inflammatory response syndrome, metabolic acidosis, secondary to infusion reaction. Patient treated with empiric IV antibiotic therapy and admitted to medical floor due to increased risk of worsening symptoms after medical stabilization. Labs were remarkable for hemoglobin 8.9, lactic acid 2.9, total bilirubin 5.2, AST 43, ALT 86, alkaline phosphatase 282, total protein 5.2, and albumin 3.1. Patient was evaluated for hepatitis that was found to be unremarkable. The patient's urinalysis was also unremarkable. Patient underwent abdominal ultrasound and CT abdomen pelvis with contrast that revealed a contracted gallbladder with possible right-sided pleural effusions but negative for masses or known obstructions. Gastroenterology was consulted for further management, and they recommended autoimmune work-up. The patient's LFTs continue to increase; however, she remains asymptomatic aside from having jaundice. The patient is hemodynamically stable without any complaints. The patient will follow-up with gastroenterology in the outpatient setting in regards to her autoimmune work-up. Patient expressed understanding. Patient is medically clear for discharge. Disposition: 01 HOME / SELF CARE / HOMELESS Final Discharge Diagnosis (Prints w/discharge instructions): Sepsisruled out, hyperbilirubinemia, elevated transaminases, normocytic anemia, metabolic acidosis, lactic acidosis, multiple sclerosis, insulin-dependent type 2 diabetes mellitus, hypokalemia Time spent for discharge: 45 min - Past Medical History --Hypertension: Yes --Diabetes: Yes - Surgical History --Coronary Stent: No - Social History --Smoking Status: Never Smoker --Substance Use Type: None no autoimmune diseases like. -Family history --No autoimmune hepatitis,/ primary biliary cholangitis/primary sclerosing cholangitis - Medications Home Medications: Home Medications Medication Instructions Recorded Confirmed Last Taken Type Gabapentin 300 mg PO BID 08/19/22 08/19/22 Unknown History Insulin Glargine [Lantus VIAL] 10 unit SUB-Q QAM 08/19/22 08/19/22 Unknown History Prednisone [predniSONE (Andreina) ER 5 mg PO QDAY 08/19/22 08/19/22 08/18/22 08:00 History TAB] azaTHIOprine [Imuran] 50 mg PO BID 08/19/22 08/19/22 Unknown History glipiZIDE [Glucotrol] 5 mg PO BID 08/19/22 08/19/22 08/18/22 08:00 History Review of Systems ROS: Stated complaint: HYPOTENSION.WEAKNESS Other details as noted in HPI Constitutional: denies: chills, fever Eyes: denies: eye pain, eye discharge, vision change ENT: denies: ear pain, throat pain Respiratory: denies: cough, shortness of breath, wheezing Cardiovascular: denies: chest pain, palpitations Endocrine: no symptoms reported Gastrointestinal: denies: abdominal pain, nausea, diarrhea Genitourinary: denies: urgency, dysuria, discharge Musculoskeletal: denies: back pain, joint swelling, arthralgia Skin: denies: rash, lesions Neurological: denies: headache, weakness, paresthesias Psychiatric: denies: anxiety, depression Hematological/Lymphatic: denies: easy bleeding, easy bruising Past History Past Medical History: other (ms) Past Surgical History: No surgical history Social history: lives with family Family history: no significant family history Medications and Allergies Allergies Allergy/AdvReac Type Severity Reaction Status Date / Time lisinopril Allergy Unknown Verified 08/24/22 10:33 Home Medications Medication Instructions Recorded Confirmed Last Taken Type Gabapentin 300 mg PO BID 08/19/22 08/19/22 Unknown History Insulin Glargine [Lantus VIAL] 10 unit SUB-Q QAM 08/19/22 08/19/22 Unknown History Prednisone [predniSONE (Andreina) ER 5 mg PO QDAY 08/19/22 08/19/22 08/18/22 08:00 History TAB] azaTHIOprine [Imuran] 50 mg PO BID 08/19/22 08/19/22 Unknown History glipiZIDE [Glucotrol] 5 mg PO BID 08/19/22 08/19/22 08/18/22 08:00 History Active Meds: Active Medications Acetaminophen (Acetaminophen 325 Mg Tab) 650 mg PO Q4H PRN PRN Reason: Pain MILD(1-3)/Fever >100.5/GUZMÁN Heparin Sodium (Porcine) (Heparin 5,000 Unit/1 Ml Vial) 5,000 unit SUB-Q Q12HR ANURADHA Last Admin: 08/24/22 21:10 Dose: 5,000 unit Cefepime HCl (Cefepime/Ns 2 Gm/100 Ml) 2 gm in 100 mls @ 200 mls/hr IV Q8H ANURADHA; Protocol Last Infusion: 08/25/22 01:13 Dose: Infused Sodium Chloride (Nacl 0.9% 1000 Ml) 1,000 mls @ 100 mls/hr IV DIRECT ANURADHA Morphine Sulfate (Morphine 2 Mg/1 Ml Inj) 2 mg IV Q4H PRN PRN Reason: Pain, Moderate (4-6) Ondansetron HCl (Ondansetron 4 Mg/2 Ml Inj) 4 mg IV Q3H PRN PRN Reason: Nausea And Vomiting Sodium Chloride (Sodium Chloride 0.9% 10 Ml Flush Syringe) 10 ml IV BID ANURADHA Last Admin: 08/24/22 21:11 Dose: 10 ml Sodium Chloride (Sodium Chloride 0.9% 10 Ml Flush Syringe) 10 ml IV PRN PRN PRN Reason: LINE FLUSH Exam - Constitutional Vitals: Temp Pulse Resp BP Pulse Ox 98.2 F 59 L 14 165/89 98 08/24/22 23:00 08/25/22 00:15 08/25/22 00:15 08/25/22 00:00 08/25/22 00:37 General appearance: Present: no acute distress, well-nourished - EENT Eyes: Present: PERRL, scleral icterus ENT: hearing intact, clear oral mucosa, other (Yellow skin) - Neck Neck: Present: supple, normal ROM - Respiratory Respiratory effort: normal Respiratory: bilateral: CTA - Cardiovascular Heart rate: 78 Rhythm: regular Heart Sounds: Present: S1 & S2. Absent: rub, click - Extremities Extremities: no ischemia, pulses symmetrical, No edema Peripheral Pulses: within normal limits - Abdominal General gastrointestinal: Present: soft, non-tender, non-distended, normal bowel sounds Female genitourinary: Present: normal - Integumentary Integumentary: Present: clear, warm, dry - Musculoskeletal Musculoskeletal: gait normal, strength equal bilaterally - Psychiatric Psychiatric: appropriate mood/affect, intact judgment & insight - Neurologic Neurologic: CNII-XII intact, moves all extremities HEART Score - HEART Score Troponin: Troponin T < 0.010 ng/mL (0.00-0.029) 08/24/22 11:24 Results - Labs CBC & Chem 7: 08/24/22 11:24 08/24/22 20:39 Labs: Laboratory Last Values WBC 24.9 K/mm3 (4.5-11.0) H 08/24/22 11:24 RBC 3.16 M/mm3 (3.65-5.03) L 08/24/22 11:24 Hgb 8.7 gm/dl (10.1-14.3) L 08/24/22 11:24 Hct 26.1 % (30.3-42.9) L 08/24/22 11:24 MCV 83 fl (79-97) 08/24/22 11:24 MCH 28 pg (28-32) 08/24/22 11:24 MCHC 34 % (30-34) 08/24/22 11:24 RDW 17.8 % (13.2-15.2) H 08/24/22 11:24 Plt Count 470 K/mm3 (140-440) H 08/24/22 11:24 Lymph # (Auto) Induction Machine Setter 08/24/22 11:24 Add Manual Diff Complete 08/24/22 11:24 Total Counted 100 08/24/22 11:24 Seg Neuts % (Manual) 75.0 % (40.0-70.0) H 08/24/22 11:24 Band Neutrophils % 24.0 % 08/24/22 11:24 Lymphocytes % (Manual) 0 % (13.4-35.0) L 08/24/22 11:24 Reactive Lymphs % (Man) 0 % 08/24/22 11:24 Monocytes % (Manual) 0 % (0.0-7.3) 08/24/22 11:24 Eosinophils % (Manual) 0 % (0.0-4.3) 08/24/22 11:24 Basophils % (Manual) 0 % (0.0-1.8) 08/24/22 11:24 Metamyelocytes % 1.0 % 08/24/22 11:24 Myelocytes % 0 % 08/24/22 11:24 Promyelocytes % 0 % 08/24/22 11:24 Blast Cells % 0 % 08/24/22 11:24 Nucleated RBC % Not Reportable 08/24/22 11:24 Seg Neutrophils # Man 18.7 K/mm3 (1.8-7.7) H 08/24/22 11:24 Band Neutrophils # 6.0 K/mm3 08/24/22 11:24 Lymphocytes # (Manual) 0.0 K/mm3 (1.2-5.4) L 08/24/22 11:24 Abs React Lymphs (Man) 0.0 K/mm3 08/24/22 11:24 Monocytes # (Manual) 0.0 K/mm3 (0.0-0.8) 08/24/22 11:24 Eosinophils # (Manual) 0.0 K/mm3 (0.0-0.4) 08/24/22 11:24 Basophils # (Manual) 0.0 K/mm3 (0.0-0.1) 08/24/22 11:24 Metamyelocytes # 0.2 K/mm3 08/24/22 11:24 Myelocytes # 0.0 K/mm3 08/24/22 11:24 Promyelocytes # 0.0 K/mm3 08/24/22 11:24 Blast Cells # 0.0 K/mm3 08/24/22 11:24 WBC Morphology Not Reportable 08/24/22 11:24 Hypersegmented Neuts Not Reportable 08/24/22 11:24 Hyposegmented Neuts Not Reportable 08/24/22 11:24 Hypogranular Neuts Not Reportable 08/24/22 11:24 Smudge Cells Not Reportable 08/24/22 11:24 Toxic Granulation Not Reportable 08/24/22 11:24 Toxic Vacuolation Not Reportable 08/24/22 11:24 Dohle Bodies Not Reportable 08/24/22 11:24 Pelger-Huet Anomaly Not Reportable 08/24/22 11:24 Yolanda Rods Not Reportable 08/24/22 11:24 Platelet Estimate Consistent w auto 08/24/22 11:24 Clumped Platelets Not Reportable 08/24/22 11:24 Plt Clumps, EDTA Not Reportable 08/24/22 11:24 Large Platelets Not Reportable 08/24/22 11:24 Giant Platelets Not Reportable 08/24/22 11:24 Platelet Satelliting Not Reportable 08/24/22 11:24 Plt Morphology Comment Not Reportable 08/24/22 11:24 RBC Morphology Not Reportable 08/24/22 11:24 Dimorphic RBCs Not Reportable 08/24/22 11:24 Polychromasia Not Reportable 08/24/22 11:24 Hypochromasia 1+ 08/24/22 11:24 Poikilocytosis Not Reportable 08/24/22 11:24 Anisocytosis 1+ 08/24/22 11:24 Microcytosis Not Reportable 08/24/22 11:24 Macrocytosis Not Reportable 08/24/22 11:24 Spherocytes Not Reportable 08/24/22 11:24 Pappenheimer Bodies Not Reportable 08/24/22 11:24 Sickle Cells Not Reportable 08/24/22 11:24 Target Cells 1+ 08/24/22 11:24 Tear Drop Cells Not Reportable 08/24/22 11:24 Ovalocytes Not Reportable 08/24/22 11:24 Helmet Cells Not Reportable 08/24/22 11:24 [place] Bodies Not Reportable 08/24/22 11:24 Iselin Rings Not Reportable 08/24/22 11:24 Sonido Cells Not Reportable 08/24/22 11:24 Bite Cells Not Reportable 08/24/22 11:24 Crenated Cell Not Reportable 08/24/22 11:24 Elliptocytes Not Reportable 08/24/22 11:24 Acanthocytes (Spur) Not Reportable 08/24/22 11:24 Rouleaux Not Reportable 08/24/22 11:24 Hemoglobin C Crystals Not Reportable 08/24/22 11:24 Schistocytes Not Reportable 08/24/22 11:24 Malaria parasites Not Reportable 08/24/22 11:24 Rob Bodies Not Reportable 08/24/22 11:24 Hem Pathologist Commnt No 08/24/22 11:24 PT 14.7 Sec. (12.2-14.9) 08/24/22 20:39 INR 1.01 (0.87-1.13) 08/24/22 20:39 Sodium 138 mmol/L (137-145) D 08/24/22 20:39 Potassium 3.8 mmol/L (3.6-5.0) 08/24/22 20:39 Chloride 101.3 mmol/L (98-107) 08/24/22 20:39 Carbon Dioxide 22 mmol/L (22-30) 08/24/22 20:39 Anion Gap 19 mmol/L 08/24/22 20:39 BUN 16 mg/dL (7-17) 08/24/22 20:39 Creatinine < 0.2 mg/dL (0.6-1.2) L 08/24/22 20:39 Estimated GFR > 60 ml/min 08/24/22 20:39 BUN/Creatinine Ratio 80 % 08/24/22 20:39 Glucose 146 mg/dL (65-100) H 08/24/22 20:39 POC Glucose 146 mg/dL (70-105) H 08/24/22 22:58 Ketones Quantitative Negative (Negative) 08/24/22 11:24 Lactic Acid 2.30 mmol/L (0.7-2.0) H* 08/24/22 20:39 Calcium 8.5 mg/dL (8.4-10.2) 08/24/22 20:39 Total Bilirubin 14.90 mg/dL (0.1-1.2) H 08/24/22 20:39 Total Bilirubin 15.00 mg/dL (0.1-1.2) H 08/24/22 20:39 Direct Bilirubin 12.4 mg/dL (0-0.2) H 08/24/22 20:39 Indirect Bilirubin 2.6 mg/dL 08/24/22 20:39 AST 47 units/L (5-40) H 08/24/22 20:39 AST 49 units/L (5-40) H 08/24/22 20:39 ALT 146 units/L (7-56) H 08/24/22 20:39 ALT 147 units/L (7-56) H 08/24/22 20:39 Alkaline Phosphatase 685 units/L (35-129) H 08/24/22 20:39 Alkaline Phosphatase 696 units/L (35-129) H 08/24/22 20:39 Ammonia 34.0 umol/L (25-60) 08/24/22 11:24 Total Creatine Kinase 12 units/L (30-135) L 08/24/22 11:24 Troponin T < 0.010 ng/mL (0.00-0.029) 08/24/22 11:24 C-Reactive Protein 34.60 mg/dL (0.00-1.30) H 08/24/22 11:24 NT-Pro-B Natriuret Pep 4485 pg/mL (0-900) H 08/24/22 11:24 Total Protein 5.3 g/dL (6.3-8.2) L 08/24/22 20:39 Total Protein 5.4 g/dL (6.3-8.2) L 08/24/22 20:39 Albumin 2.5 g/dL (3.9-5) L 08/24/22 20:39 Albumin 2.6 g/dL (3.9-5) L 08/24/22 20:39 Albumin/Globulin Ratio 0.9 % 08/24/22 20:39 Albumin/Globulin Ratio 0.9 % 08/24/22 20:39 Lipase 251 units/L (13-60) H 08/24/22 20:39 Urine Color Daniela (Yellow) 08/24/22 16:21 Urine Turbidity Clear (Clear) 08/24/22 16:21 Urine pH 5.0 (5.0-7.0) 08/24/22 16:21 Ur Specific [place] 1.010 (1.003-1.030) 08/24/22 16:21 Urine Protein <15 mg/dl mg/dL (Negative) 08/24/22 16:21 Urine Glucose (UA) 150 mg/dL (Negative) 08/24/22 16:21 Urine Ketones Neg mg/dL (Negative) 08/24/22 16:21 Urine Blood Sm (Negative) 08/24/22 16:21 Urine Nitrite Neg (Negative) 08/24/22 16:21 Urine Bilirubin Mod (Negative) 08/24/22 16:21 Urine Ictotest Positive (Negative) 08/24/22 16:21 Urine Urobilinogen 2.0 mg/dL (<2.0) 08/24/22 16:21 Ur Leukocyte Esterase Tr (Negative) 08/24/22 16:21 Urine WBC (Auto) 1.0 /HPF (0.0-6.0) 08/24/22 16:21 Urine RBC (Auto) > 1.0 /HPF (0.0-6.0) 08/24/22 16:21 U Epithel Cells (Auto) < 1.0 /HPF (0-13.0) 08/24/22 16:21 Salicylates < 0.3 mg/dL (2.8-20.0) L 08/24/22 11:24 Acetaminophen 5.0 ug/mL (10.0-30.0) L 08/24/22 11:24 Plasma/Serum Alcohol < 0.01 % (0-0.07) 08/24/22 11:24 Short CBC 08/24/22 Range/Units 11:24 WBC 24.9 H (4.5-11.0) K/mm3 Hgb 8.7 L (10.1-14.3) gm/dl Hct 26.1 L (30.3-42.9) % Plt Count 470 H (140-440) K/mm3 BMP 08/24/22 08/24/22 11:24 20:39 Sodium 131 L 138 D Potassium 3.9 3.8 Chloride 93.7 L 101.3 Carbon Dioxide 20 L 22 BUN 21 H 16 Creatinine 0.3 L < 0.2 L Glucose 294 H 146 H Calcium 8.3 L 8.5 Cardiac Enzymes 08/24/22 Range/Units 11:24 Total Creatine Kinase 12 L (30-135) units/L Troponin T < 0.010 (0.00-0.029) ng/mL Liver Function 08/24/22 08/24/22 08/24/22 Range/Units 11:24 20:39 20:39 Total Bilirubin 15.90 H 14.90 H 15.00 H (0.1-1.2) mg/dL Direct Bilirubin 12.4 H (0-0.2) mg/dL AST 66 H 49 H 47 H (5-40) units/L ALT 182 H 147 H 146 H (7-56) units/L Alkaline Phosphatase 728 H 696 H 685 H (35-129) units/L Albumin 2.9 L 2.6 L 2.5 L (3.9-5) g/dL Urine 08/24/22 Range/Units 16:21 Urine Color Daniela (Yellow) Urine pH 5.0 (5.0-7.0) Ur Specific [place] 1.010 (1.003-1.030) Urine Protein <15 mg/dl (Negative) mg/dL Urine Glucose (UA) 150 (Negative) mg/dL Microbiology: Microbiology 08/24/22 11:24 Peripheral/Venous Blood Culture - Preliminary Culture in Progress 08/24/22 11:24 Peripheral/Venous Blood Culture - Preliminary Culture in Progress - Imaging and Cardiology Imaging and Cardiology: Chest x-ray No acute findings Abdomen/pelvis CAT scan Improved gallbladder wall thickening compared to the prior exam. Hepatic steatosis Cervantes/IV: Voiding Method Bedside Commode Assessment and Plan Advance Directives: Yes (Full code) VTE prophylaxis?: Chemical Plan of care discussed with patient/family: Yes - Patient Problems (1) Sepsis Current Visit: Yes Status: Acute Qualifiers: Severe sepsis shock status: without septic shock Plan to address problem: Patient initiated on cefepime and metronidazole ID consult requested More in favor of cholangitis because of the increased alk phosphatase and total bilirubin GI consult was requested Lactic acid elevated White count elevated (2) Acute hepatitis Current Visit: Yes Status: Acute Plan to address problem: Elevated transaminases Hepatitis profile if not done within the last admission (3) Cholangitis Current Visit: Yes Status: Acute Plan to address problem: Differential diagnosis of primary biliary cholangitis versus primary sclerosing cholangitis Alk phos is a more elevated favoring cholestasis. MRCP requested for evaluation of bile ducts and any sclerosing features (4) IDDM (insulin dependent diabetes mellitus) Current Visit: Yes Status: Acute Plan to address problem: Hold oral hypoglycemics Insulin coverage Check hemoglobin A1c (5) Peripheral neuropathy Current Visit: Yes Status: Chronic Qualifiers: Peripheral neuropathy type: polyneuropathy, unspecified Qualified Code(s): G62.9 - Polyneuropathy, unspecified Plan to address problem: Hold gabapentin for now because of the the elevated liver enzymes (6) Multiple sclerosis Current Visit: Yes Status: Chronic Plan to address problem: In remission (7) Anemia Current Visit: Yes Status: Acute Qualifiers: Anemia type: unspecified type Qualified Code(s): D64.9 - Anemia, unspecified Plan to address problem: Anemia work-up Hemolysis to be ruled out LDH (8) DVT prophylaxis Current Visit: Yes Status: Acute Plan to address problem: On heparin and GI prophylaxis (9) Advance care planning Current Visit: Yes Status: Acute Plan to address problem: Disease education conducted, care plan discussed, diagnosis and prognosis discussed. Patient is full code. Patient acknowledged understanding of the care plan. +30 minutes.
[2022-08-25 06:13] LABS: Hematocrit 25.1 % (30.3-42.9); Hemoglobin 8.2 gm/dl (10.1-14.3); Mean Corpuscular HGB Conc 33 % (30-34); Mean Corpuscular Volume 82 fl (79-97); Platelet Count 463 K/mm3 (140-440); Red Blood Count 3.04 M/mm3 (3.65-5.03); Red Cell Distribution Width 17.7 % (13.2-15.2)
[2022-08-25 06:33] LABS: Alanine Aminotransferase 111 units/L (7-56); Albumin 2.4 g/dL (3.9-5); Blood Urea Nitrogen 13 mg/dL (7-17); Hemolysis Index 0
[2022-08-25 07:11] LABS: Anisocytosis 1+; Basophils % (Manual) 0 % (0.0-1.8); Hypochromasia 1+; Monocytes % (Manual) 0 % (0.0-7.3); Target Cells 1+; Total Cells Counted 100
[2022-08-25 07:12] LABS: Large Platelets Rare; Platelet Estimate Cons
[2022-08-25 07:15] LABS: BUN/Creatinine Ratio 65
[2022-08-25] MEDS: INSULIN LISPRO 100 UNIT/ML SUB-Q SCH ×4 (07:30→23:36)
--- NOTE | 2022-08-25 11:01 | Consultation ---
History of Present Illness - Reason for Consult Consult date: 08/25/22 ?cholangitis Requesting physician: ARIC CLAROS - History of Present Illness The patient is a 52-year-old female who was recently hospitalized from 08/18 to 08/22/2022, found to have elevated LFTs, jaundice, was seen by GI, being worked up for possible autoimmune hepatitis versus primary biliary cholangitis. Does have history of multiple sclerosis on treatment. Now readmitted with worsening weakness, nausea and jaundice. Total bilirubin had worsened to 15.9 along with leukocytosis. ID was consulted for possible cholangitis. Recent CT scan showed contracted gallbladder, no biliary ductal dilatation or choledocholithiasis. GI is also following. Patient is originally from [facility], is at bedside. Reports some low-grade fevers at home. Review of Systems: General: no fevers,chills or rigors here HEENT: no new visual disturbance Respiratory: No cough, sputum, hemoptysis or shortness of breath Cardiovascular: No chest pain, syncope Gastrointestinal: No nausea, vomiting or diarrhea Genitourinary: No dysuria or hematuria Musculoskeletal: No new or worsening neck pain or back pain Neurologic: No headaches, seizures Hematologic: No easy bruising or bleeding Endocrine: No night sweats or acute weight loss Skin: negative for rash, positive for jaundice Psychiatric: No suicidal or homicidal ideation Past History Past Medical History: other (ms) Past Surgical History: No surgical history Social history: lives with family Family history: no significant family history Medications and Allergies Allergies Allergy/AdvReac Type Severity Reaction Status Date / Time lisinopril Allergy Unknown Verified 08/24/22 10:33 Home Medications Medication Instructions Recorded Confirmed Last Taken Type Gabapentin 300 mg PO BID 08/19/22 08/19/22 Unknown History Insulin Glargine [Lantus VIAL] 10 unit SUB-Q QAM 08/19/22 08/19/22 Unknown History Prednisone [predniSONE (Andreina) ER 5 mg PO QDAY 08/19/22 08/19/22 08/18/22 08:00 History TAB] azaTHIOprine [Imuran] 50 mg PO BID 08/19/22 08/19/22 Unknown History glipiZIDE [Glucotrol] 5 mg PO BID 08/19/22 08/19/22 08/18/22 08:00 History Active Meds: Active Medications Acetaminophen (Acetaminophen 325 Mg Tab) 650 mg PO Q4H PRN PRN Reason: Pain MILD(1-3)/Fever >100.5/GUZMÁN Heparin Sodium (Porcine) (Heparin 5,000 Unit/1 Ml Vial) 5,000 unit SUB-Q Q12HR ANURADHA Last Admin: 08/24/22 21:10 Dose: 5,000 unit Cefepime HCl (Cefepime/Ns 2 Gm/100 Ml) 2 gm in 100 mls @ 200 mls/hr IV Q8H ANURADHA; Protocol Last Admin: 08/25/22 09:00 Dose: 200 mls/hr Sodium Chloride (Nacl 0.9% 1000 Ml) 1,000 mls @ 100 mls/hr IV DIRECT ANURADHA Metronidazole (Flagyl 500 Mg/100 Ml) 500 mg in 100 mls @ 100 mls/hr IV Q8HR ANURADHA; Protocol Insulin Human Lispro (Insulin Lispro 100 Unit/Ml) 0 unit SUB-Q ACHS ANURADHA; Protocol Last Admin: 08/25/22 07:30 Dose: Not Given Morphine Sulfate (Morphine 2 Mg/1 Ml Inj) 2 mg IV Q4H PRN PRN Reason: Pain, Moderate (4-6) Ondansetron HCl (Ondansetron 4 Mg/2 Ml Inj) 4 mg IV Q3H PRN PRN Reason: Nausea And Vomiting Sodium Chloride (Sodium Chloride 0.9% 10 Ml Flush Syringe) 10 ml IV BID [facility] Last Admin: 08/24/22 21:11 Dose: 10 ml Sodium Chloride (Sodium Chloride 0.9% 10 Ml Flush Syringe) 10 ml IV PRN PRN PRN Reason: LINE FLUSH Physical Examination - Physical Exam Narrative exam: Physical Exam: Constitutional: Alert, cooperative. No acute distress Head, Ears, Nose: Normocephalic, atraumatic. External ears, nose normal Eyes: Conjunctivae/corneas clear. + Icterus. No ptosis. Neck: Supple, no meningeal signs Cardiovascular: S1, S2 + Respiratory: Good air entry, clear to auscultation bilaterally GI: Soft, non-tender; bowel sounds normal. No peritoneal signs Musculoskeletal: No pedal edema, no cyanosis. Skin: No rash or abscess Hem/Lymphatic: No palpable cervical or supraclavicular nodes. No lymphangitis Psych: Mood ok. Affect normal Neurological: Awake, alert, oriented. No gross abnormality - Constitutional Vitals: Vital Signs Temp Pulse Resp BP Pulse Ox 98.2 F 54 L 12 165/89 100 08/24/22 23:00 08/25/22 02:30 08/25/22 02:30 08/25/22 02:30 08/25/22 04:40 Temperature -Last 24 Hours Temperature 98.2 F Temperature 98.7 F Results - Labs CBC & Chem 7: 08/25/22 04:53 08/25/22 04:53 Labs: Abnormal lab results 08/24/22 08/24/22 08/24/22 Range/Units 11:24 11:24 11:24 WBC 24.9 H (4.5-11.0) K/mm3 RBC 3.16 L (3.65-5.03) M/mm3 Hgb 8.7 L (10.1-14.3) gm/dl Hct 26.1 L (30.3-42.9) % MCH (28-32) pg RDW 17.8 H (13.2-15.2) % Plt Count 470 H (140-440) K/mm3 Seg Neuts % (Manual) 75.0 H (40.0-70.0) % Lymphocytes % (Manual) 0 L (13.4-35.0) % Seg Neutrophils # Man 18.7 H (1.8-7.7) K/mm3 Lymphocytes # (Manual) 0.0 L (1.2-5.4) K/mm3 PT 15.6 H (12.2-14.9) Sec. Sodium 131 L (137-145) mmol/L Potassium (3.6-5.0) mmol/L Chloride 93.7 L (98-107) mmol/L Carbon Dioxide 20 L (22-30) mmol/L BUN 21 H (7-17) mg/dL Creatinine 0.3 L (0.6-1.2) mg/dL Glucose 294 H (65-100) mg/dL POC Glucose (70-105) mg/dL Lactic Acid (0.7-2.0) mmol/L Calcium 8.3 L (8.4-10.2) mg/dL Total Bilirubin 15.90 H (0.1-1.2) mg/dL Direct Bilirubin (0-0.2) mg/dL AST 66 H (5-40) units/L ALT 182 H (7-56) units/L Alkaline Phosphatase 728 H (35-129) units/L Total Creatine Kinase 12 L (30-135) units/L C-Reactive Protein 34.60 H (0.00-1.30) mg/dL NT-Pro-B Natriuret Pep 4485 H (0-900) pg/mL Total Protein 5.6 L (6.3-8.2) g/dL Albumin 2.9 L (3.9-5) g/dL Lipase (13-60) units/L Salicylates (2.8-20.0) mg/dL Acetaminophen (10.0-30.0) ug/mL 08/24/22 08/24/22 08/24/22 Range/Units 11:24 11:24 11:24 WBC (4.5-11.0) K/mm3 RBC (3.65-5.03) M/mm3 Hgb (10.1-14.3) gm/dl Hct (30.3-42.9) % MCH (28-32) pg RDW (13.2-15.2) % Plt Count (140-440) K/mm3 Seg Neuts % (Manual) (40.0-70.0) % Lymphocytes % (Manual) (13.4-35.0) % Seg Neutrophils # Man (1.8-7.7) K/mm3 Lymphocytes # (Manual) (1.2-5.4) K/mm3 PT (12.2-14.9) Sec. Sodium (137-145) mmol/L Potassium (3.6-5.0) mmol/L Chloride (98-107) mmol/L Carbon Dioxide (22-30) mmol/L BUN (7-17) mg/dL Creatinine (0.6-1.2) mg/dL Glucose (65-100) mg/dL POC Glucose (70-105) mg/dL Lactic Acid 3.50 H* (0.7-2.0) mmol/L Calcium (8.4-10.2) mg/dL Total Bilirubin (0.1-1.2) mg/dL Direct Bilirubin (0-0.2) mg/dL AST (5-40) units/L ALT (7-56) units/L Alkaline Phosphatase (35-129) units/L Total Creatine Kinase (30-135) units/L C-Reactive Protein (0.00-1.30) mg/dL NT-Pro-B Natriuret Pep (0-900) pg/mL Total Protein (6.3-8.2) g/dL Albumin (3.9-5) g/dL Lipase (13-60) units/L Salicylates < 0.3 L (2.8-20.0) mg/dL Acetaminophen 5.0 L (10.0-30.0) ug/mL 08/24/22 08/24/22 08/24/22 Range/Units 14:36 17:03 20:39 WBC (4.5-11.0) K/mm3 RBC (3.65-5.03) M/mm3 Hgb (10.1-14.3) gm/dl Hct (30.3-42.9) % MCH (28-32) pg RDW (13.2-15.2) % Plt Count (140-440) K/mm3 Seg Neuts % (Manual) (40.0-70.0) % Lymphocytes % (Manual) (13.4-35.0) % Seg Neutrophils # Man (1.8-7.7) K/mm3 Lymphocytes # (Manual) (1.2-5.4) K/mm3 PT (12.2-14.9) Sec. Sodium (137-145) mmol/L Potassium (3.6-5.0) mmol/L Chloride (98-107) mmol/L Carbon Dioxide (22-30) mmol/L BUN (7-17) mg/dL Creatinine (0.6-1.2) mg/dL Glucose (65-100) mg/dL POC Glucose (70-105) mg/dL Lactic Acid 2.20 H* 2.40 H* 2.30 H* (0.7-2.0) mmol/L Calcium (8.4-10.2) mg/dL Total Bilirubin (0.1-1.2) mg/dL Direct Bilirubin (0-0.2) mg/dL AST (5-40) units/L ALT (7-56) units/L Alkaline Phosphatase (35-129) units/L Total Creatine Kinase (30-135) units/L C-Reactive Protein (0.00-1.30) mg/dL NT-Pro-B Natriuret Pep (0-900) pg/mL Total Protein (6.3-8.2) g/dL Albumin (3.9-5) g/dL Lipase (13-60) units/L Salicylates (2.8-20.0) mg/dL Acetaminophen (10.0-30.0) ug/mL 08/24/22 08/24/22 08/24/22 Range/Units 20:39 20:39 20:39 WBC (4.5-11.0) K/mm3 RBC (3.65-5.03) M/mm3 Hgb (10.1-14.3) gm/dl Hct (30.3-42.9) % MCH (28-32) pg RDW (13.2-15.2) % Plt Count (140-440) K/mm3 Seg Neuts % (Manual) (40.0-70.0) % Lymphocytes % (Manual) (13.4-35.0) % Seg Neutrophils # Man (1.8-7.7) K/mm3 Lymphocytes # (Manual) (1.2-5.4) K/mm3 PT (12.2-14.9) Sec. Sodium (137-145) mmol/L Potassium (3.6-5.0) mmol/L Chloride (98-107) mmol/L Carbon Dioxide (22-30) mmol/L BUN (7-17) mg/dL Creatinine < 0.2 L (0.6-1.2) mg/dL Glucose 146 H (65-100) mg/dL POC Glucose (70-105) mg/dL Lactic Acid (0.7-2.0) mmol/L Calcium (8.4-10.2) mg/dL Total Bilirubin 14.90 H 15.00 H (0.1-1.2) mg/dL Direct Bilirubin 12.4 H (0-0.2) mg/dL AST 49 H 47 H (5-40) units/L ALT 147 H 146 H (7-56) units/L Alkaline Phosphatase 696 H 685 H (35-129) units/L Total Creatine Kinase (30-135) units/L C-Reactive Protein (0.00-1.30) mg/dL NT-Pro-B Natriuret Pep (0-900) pg/mL Total Protein 5.4 L 5.3 L (6.3-8.2) g/dL Albumin 2.6 L 2.5 L (3.9-5) g/dL Lipase 251 H (13-60) units/L Salicylates (2.8-20.0) mg/dL Acetaminophen (10.0-30.0) ug/mL 08/24/22 08/25/22 08/25/22 Range/Units 22:58 04:53 04:53 WBC 16.1 H (4.5-11.0) K/mm3 RBC 3.04 L (3.65-5.03) M/mm3 Hgb 8.2 L (10.1-14.3) gm/dl Hct 25.1 L (30.3-42.9) % MCH 27 L (28-32) pg RDW 17.7 H (13.2-15.2) % Plt Count 463 H (140-440) K/mm3 Seg Neuts % (Manual) 89.0 H (40.0-70.0) % Lymphocytes % (Manual) 4.0 L (13.4-35.0) % Seg Neutrophils # Man 14.3 H (1.8-7.7) K/mm3 Lymphocytes # (Manual) 0.6 L (1.2-5.4) K/mm3 PT (12.2-14.9) Sec. Sodium (137-145) mmol/L Potassium 3.5 L (3.6-5.0) mmol/L Chloride (98-107) mmol/L Carbon Dioxide 21 L (22-30) mmol/L BUN (7-17) mg/dL Creatinine < 0.2 L (0.6-1.2) mg/dL Glucose 121 H (65-100) mg/dL POC Glucose 146 H (70-105) mg/dL Lactic Acid (0.7-2.0) mmol/L Calcium 8.0 L (8.4-10.2) mg/dL Total Bilirubin 12.70 H (0.1-1.2) mg/dL Direct Bilirubin (0-0.2) mg/dL AST 46 H (5-40) units/L ALT 111 H (7-56) units/L Alkaline Phosphatase 629 H (35-129) units/L Total Creatine Kinase (30-135) units/L C-Reactive Protein (0.00-1.30) mg/dL NT-Pro-B Natriuret Pep (0-900) pg/mL Total Protein 4.7 L (6.3-8.2) g/dL Albumin 2.4 L (3.9-5) g/dL Lipase (13-60) units/L Salicylates (2.8-20.0) mg/dL Acetaminophen (10.0-30.0) ug/mL 08/25/22 Range/Units 07:31 WBC (4.5-11.0) K/mm3 RBC (3.65-5.03) M/mm3 Hgb (10.1-14.3) gm/dl Hct (30.3-42.9) % MCH (28-32) pg RDW (13.2-15.2) % Plt Count (140-440) K/mm3 Seg Neuts % (Manual) (40.0-70.0) % Lymphocytes % (Manual) (13.4-35.0) % Seg Neutrophils # Man (1.8-7.7) K/mm3 Lymphocytes # (Manual) (1.2-5.4) K/mm3 PT (12.2-14.9) Sec. Sodium (137-145) mmol/L Potassium (3.6-5.0) mmol/L Chloride (98-107) mmol/L Carbon Dioxide (22-30) mmol/L BUN (7-17) mg/dL Creatinine (0.6-1.2) mg/dL Glucose (65-100) mg/dL POC Glucose 115 H (70-105) mg/dL Lactic Acid (0.7-2.0) mmol/L Calcium (8.4-10.2) mg/dL Total Bilirubin (0.1-1.2) mg/dL Direct Bilirubin (0-0.2) mg/dL AST (5-40) units/L ALT (7-56) units/L Alkaline Phosphatase (35-129) units/L Total Creatine Kinase (30-135) units/L C-Reactive Protein (0.00-1.30) mg/dL NT-Pro-B Natriuret Pep (0-900) pg/mL Total Protein (6.3-8.2) g/dL Albumin (3.9-5) g/dL Lipase (13-60) units/L Salicylates (2.8-20.0) mg/dL Acetaminophen (10.0-30.0) ug/mL Assessment and Plan Cultures: 08/24/2022 blood culture: In process A/P: 52-year-old female originally from [facility] who was recently hospitalized from 08/18 to 08/22/2022, found to have elevated LFTs, jaundice, was seen by GI, being worked up for possible autoimmune hepatitis versus primary biliary cholangitis. Does have history of multiple sclerosis on treatment. Now readmitted with worsening weakness, nausea and jaundice: #Leukocytosis, reactive thrombocytosis: did have some low grade fever at home, cover for cholangitis. #Jaundice with elevated LFTs: Direct hyperbilirubinemia, mild elevation of transaminases, alkaline phosphatase 629, total bilirubin of 12.7 today. Hepati tis panel nonreactive. Awaiting MRCP. GI evaluating for possible biliary obstruction. Drug-induced liver injury also possible. 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 Has previously received steroids. Last month, did not respond to steroids and underwent plasma exchange at [facility]. Recs: Okay to continue cefepime, Flagyl for now Follow-up MRCP. GI following. Chano Mayfield MD, FACP, [facility] ([facility] O: [phone] F: [phone] C: [phone]
--- NOTE | 2022-08-25 11:30 | Magnetic Resonance Report ---
MR abdomen MRCP HISTORY: Jaundice TECHNIQUE: Coronal thin slab and radial MRCP imaging. Axial and coronal T2 fat sat. COMPARISON: CT abdomen pelvis with contrast 08/24/2022. FINDINGS: There is focal gallbladder wall thickening in the gallbladder fundus measuring up to 1.7 cm which is unchanged since the previous CT. This was previously described as possible adenomyomatosis. Gallbladder mass is difficult to exclude in my opinion. There is no evidence for cholelithiasis, slu dge or biliary dilatation. The common bile duct and intrahepatic ducts are unremarkable on MRCP image s. The CBD measures 4 mm. The liver, pancreas, spleen, kidneys and adrenal glands are unremarkable. Visualized bowel loops are within normal limits. The vascular structures are widely patent and without disease. No adenopathy, a scites, fluid collection or acute inflammation. No suspicious bony lesion. IMPRESSION: There is focal thickening of the gallbladder wall in the fundus region as described. Focal adenomyoma tosis or possible neoplasm could be considered. There is no evidence for cholelithiasis or choledocho lithiasis. Unremarkable MR appearance of the liver. Signer Name: Phoenix Love Jr, MD Signed: 08/25/2022 11:26 AM Workstation Name: [id number]
[2022-08-25] MEDS: HEPARIN 5,000 UNIT/1 ML VIAL SUB-Q SCH ×2 (11:38→21:22)
[2022-08-25] MEDS: SODIUM CHLORIDE 0.9% 1000 ML 1,000 ML IV SCH (11:39)
--- NOTE | 2022-08-25 13:17 | Progress Note ---
Assessment and Plan Assessment and plan: #Sepsis #Possible cholangitis #Acute hepatitis-autoimmune vs drug induced #Elevated liver enzymes-improving CT abd/pelvis showed hepatic steatosis and irregularity at fundus of the ga llbladder Possible cholangitis because of the increased alk phosphatase and total bilirubin; continue cefepime and flagyl azathioprine held due to possibility of causing elevated LFTs will continue prednisone at home dose ddx also include primary biliary cholangitis vs primary sclerosing cholangitis GI and ID following, assistance appreciated #Insulin-dependent type 2 diabetes -A1C 8.1% -continue SSI +accuchecks #Peripheral neuropathy -will resume gabapentin #Multiple sclerosis azathioprine held due to concern for drug induced hepatitis continue prednisone taper (currently at 5mg) #Anemia -chronic, baseline Hgb 8.4 -likely secondary to chronic disease, MS -will continue to monitor -will transfuse for Hgb less than 7 #Moderate protein calorie malnutrition -albumin 2.4 #Advanced care planning Disease education conducted, care plan discussed, diagnosis and prognosis discussed. Patient is full code. Patient acknowledged understanding of the care plan. +30 minutes. #Hypotension-resolved #Lactic acidosis-resolved History Interval history: No acute events overnight. Patient returned from [facility]. Findings discussed with patient and at bedside. We will continue with current care, she has no acute issues at this time. Hospitalist Physical - Physical exam Narrative exam: GENERAL: Well-developed well-nourished. In no acute distress. HEENT: Scleral icterus. NECK: Supple. CHEST/LUNGS: CTAB on room air HEART/CARDIOVASCULAR: RRR. No murmur, rubs or gallops appreciated. ABDOMEN: +BS. NT/ND. SKIN: Visibily jaundiced. NEURO: No focal motor deficit. Follows all commands and is ambulatory. MUSCULOSKELETAL: No joint effusion EXTREMITIES: No cyanosis, clubbing or edema. PSYCH: Cooperative. - Constitutional Vitals: Temp Pulse Resp BP Pulse Ox 98.2 F 54 L 12 165/89 100 08/24/22 23:00 08/25/22 02:30 08/25/22 02:30 08/25/22 02:30 08/25/22 04:40 General appearance: Present: no acute distress, well-nourished HEART Score - HEART Score Troponin: Troponin T < 0.010 ng/mL (0.00-0.029) 08/24/22 11:24 Results - Labs CBC & Chem 7: 08/26/22 07:17 08/26/22 07:17 Labs: Laboratory Last Values WBC 16.1 K/mm3 (4.5-11.0) H 08/25/22 04:53 RBC 3.04 M/mm3 (3.65-5.03) L 08/25/22 04:53 Hgb 8.2 gm/dl (10.1-14.3) L 08/25/22 04:53 Hct 25.1 % (30.3-42.9) L 08/25/22 04:53 MCV 82 fl (79-97) 08/25/22 04:53 MCH 27 pg (28-32) L 08/25/22 04:53 MCHC 33 % (30-34) 08/25/22 04:53 RDW 17.7 % (13.2-15.2) H 08/25/22 04:53 Plt Count 463 K/mm3 (140-440) H 08/25/22 04:53 Lymph # (Auto) [place] 08/25/22 04:53 Add Manual Diff Complete 08/25/22 04:53 Total Counted 100 08/25/22 04:53 Seg Neuts % (Manual) 89.0 % (40.0-70.0) H 08/25/22 04:53 Band Neutrophils % 6.0 % 08/25/22 04:53 Lymphocytes % (Manual) 4.0 % (13.4-35.0) L 08/25/22 04:53 Reactive Lymphs % (Man) 0 % 08/25/22 04:53 Monocytes % (Manual) 0 % (0.0-7.3) 08/25/22 04:53 Eosinophils % (Manual) 1.0 % (0.0-4.3) 08/25/22 04:53 Basophils % (Manual) 0 % (0.0-1.8) 08/25/22 04:53 Metamyelocytes % 0 % 08/25/22 04:53 Myelocytes % 0 % 08/25/22 04:53 Promyelocytes % 0 % 08/25/22 04:53 Blast Cells % 0 % 08/25/22 04:53 Nucleated RBC % Not Reportable 08/25/22 04:53 Seg Neutrophils # Man 14.3 K/mm3 (1.8-7.7) H 08/25/22 04:53 Band Neutrophils # 1.0 K/mm3 08/25/22 04:53 Lymphocytes # (Manual) 0.6 K/mm3 (1.2-5.4) L 08/25/22 04:53 Abs React Lymphs (Man) 0.0 K/mm3 08/25/22 04:53 Monocytes # (Manual) 0.0 K/mm3 (0.0-0.8) 08/25/22 04:53 Eosinophils # (Manual) 0.2 K/mm3 (0.0-0.4) 08/25/22 04:53 Basophils # (Manual) 0.0 K/mm3 (0.0-0.1) 08/25/22 04:53 Metamyelocytes # 0.0 K/mm3 08/25/22 04:53 Myelocytes # 0.0 K/mm3 08/25/22 04:53 Promyelocytes # 0.0 K/mm3 08/25/22 04:53 Blast Cells # 0.0 K/mm3 08/25/22 04:53 WBC Morphology Not Reportable 08/25/22 04:53 Hypersegmented Neuts Not Reportable 08/25/22 04:53 Hyposegmented Neuts Not Reportable 08/25/22 04:53 Hypogranular Neuts Not Reportable 08/25/22 04:53 Smudge Cells Not Reportable 08/25/22 04:53 Toxic Granulation Not Reportable 08/25/22 04:53 Toxic Vacuolation Not Reportable 08/25/22 04:53 Dohle Bodies Not Reportable 08/25/22 04:53 Pelger-Huet Anomaly Not Reportable 08/25/22 04:53 Yolanda Rods Not Reportable 08/25/22 04:53 Platelet Estimate Cons 08/25/22 04:53 Clumped Platelets Not Reportable 08/25/22 04:53 Plt Clumps, EDTA Not Reportable 08/25/22 04:53 Large Platelets Rare 08/25/22 04:53 Giant Platelets Not Reportable 08/25/22 04:53 Platelet Satelliting Not Reportable 08/25/22 04:53 Plt Morphology Comment Not Reportable 08/25/22 04:53 RBC Morphology Not Reportable 08/25/22 04:53 Dimorphic RBCs Not Reportable 08/25/22 04:53 Polychromasia Not Reportable 08/25/22 04:53 Hypochromasia 1+ 08/25/22 04:53 Poikilocytosis Not Reportable 08/25/22 04:53 Anisocytosis 1+ 08/25/22 04:53 Microcytosis Not Reportable 08/25/22 04:53 Macrocytosis Not Reportable 08/25/22 04:53 Spherocytes Not Reportable 08/25/22 04:53 Pappenheimer Bodies Not Reportable 08/25/22 04:53 Sickle Cells Not Reportable 08/25/22 04:53 Target Cells 1+ 08/25/22 04:53 Tear Drop Cells Not Reportable 08/25/22 04:53 Ovalocytes Not Reportable 08/25/22 04:53 Helmet Cells Not Reportable 08/25/22 04:53 Law-[place] Bodies Not Reportable 08/25/22 04:53 [place] Rings Not Reportable 08/25/22 04:53 Sonido Cells Not Reportable 08/25/22 04:53 Bite Cells Not Reportable 08/25/22 04:53 Crenated Cell Not Reportable 08/25/22 04:53 Elliptocytes Not Reportable 08/25/22 04:53 Acanthocytes (Spur) Not Reportable 08/25/22 04:53 Rouleaux Not Reportable 08/25/22 04:53 Hemoglobin C Crystals Not Reportable 08/25/22 04:53 Schistocytes Not Reportable 08/25/22 04:53 Malaria parasites Not Reportable 08/25/22 04:53 Rob Bodies Not Reportable 08/25/22 04:53 Hem Pathologist Commnt No 08/25/22 04:53 PT 14.7 Sec. (12.2-14.9) 08/24/22 20:39 INR 1.01 (0.87-1.13) 08/24/22 20:39 Sodium 140 mmol/L (137-145) 08/25/22 04:53 Potassium 3.5 mmol/L (3.6-5.0) L 08/25/22 04:53 Chloride 104.7 mmol/L (98-107) 08/25/22 04:53 Carbon Dioxide 21 mmol/L (22-30) L 08/25/22 04:53 Anion Gap 18 mmol/L 08/25/22 04:53 BUN 13 mg/dL (7-17) 08/25/22 04:53 Creatinine < 0.2 mg/dL (0.6-1.2) L 08/25/22 04:53 Estimated GFR > 60 ml/min 08/25/22 04:53 BUN/Creatinine Ratio 65 % 08/25/22 04:53 Glucose 121 mg/dL (65-100) H 08/25/22 04:53 POC Glucose 115 mg/dL (70-105) H 08/25/22 07:31 Ketones Quantitative Negative (Negative) 08/24/22 11:24 Lactic Acid 1.40 mmol/L (0.7-2.0) 08/25/22 04:53 Calcium 8.0 mg/dL (8.4-10.2) L 08/25/22 04:53 Total Bilirubin 12.70 mg/dL (0.1-1.2) H 08/25/22 04:53 Direct Bilirubin 12.4 mg/dL (0-0.2) H 08/24/22 20:39 Indirect Bilirubin 2.6 mg/dL 08/24/22 20:39 AST 46 units/L (5-40) H 08/25/22 04:53 ALT 111 units/L (7-56) H 08/25/22 04:53 Alkaline Phosphatase 629 units/L (35-129) H 08/25/22 04:53 Ammonia 34.0 umol/L (25-60) 08/24/22 11:24 Total Creatine Kinase 12 units/L (30-135) L 08/24/22 11:24 Troponin T < 0.010 ng/mL (0.00-0.029) 08/24/22 11:24 C-Reactive Protein 34.60 mg/dL (0.00-1.30) H 08/24/22 11:24 NT-Pro-B Natriuret Pep 4485 pg/mL (0-900) H 08/24/22 11:24 Total Protein 4.7 g/dL (6.3-8.2) L 08/25/22 04:53 Albumin 2.4 g/dL (3.9-5) L 08/25/22 04:53 Albumin/Globulin Ratio 1.0 % 08/25/22 04:53 Lipase 251 units/L (13-60) H 08/24/22 20:39 Urine Color Daniela (Yellow) 08/24/22 16:21 Urine Turbidity Clear (Clear) 08/24/22 16:21 Urine pH 5.0 (5.0-7.0) 08/24/22 16:21 Ur Specific [place] 1.010 (1.003-1.030) 08/24/22 16:21 Urine Protein <15 mg/dl mg/dL (Negative) 08/24/22 16:21 Urine Glucose (UA) 150 mg/dL (Negative) 08/24/22 16:21 Urine Ketones Neg mg/dL (Negative) 08/24/22 16:21 Urine Blood Sm (Negative) 08/24/22 16:21 Urine Nitrite Neg (Negative) 08/24/22 16:21 Urine Bilirubin Mod (Negative) 08/24/22 16:21 Urine Ictotest Positive (Negative) 08/24/22 16:21 Urine Urobilinogen 2.0 mg/dL (<2.0) 08/24/22 16:21 Ur Leukocyte Esterase Tr (Negative) 08/24/22 16:21 Urine WBC (Auto) 1.0 /HPF (0.0-6.0) 08/24/22 16:21 Urine RBC (Auto) > 1.0 /HPF (0.0-6.0) 08/24/22 16:21 U Epithel Cells (Auto) < 1.0 /HPF (0-13.0) 08/24/22 16:21 Salicylates < 0.3 mg/dL (2.8-20.0) L 08/24/22 11:24 Acetaminophen 5.0 ug/mL (10.0-30.0) L 08/24/22 11:24 Plasma/Serum Alcohol < 0.01 % (0-0.07) 08/24/22 11:24 Microbiology: Microbiology 08/24/22 11:24 Peripheral/Venous Blood Culture - Preliminary NO GROWTH AFTER 24 HOURS 08/24/22 11:24 Peripheral/Venous Blood Culture - Preliminary NO GROWTH AFTER 24 HOURS Cervantes/IV: Voiding Method Bedside Commode Active Medications - Current Medications Current Medications: Generic Name Dose Route Start Last Admin Trade Name Freq PRN Reason Stop Dose Admin Acetaminophen 650 mg 08/24/22 15:11 Acetaminophen 325 Mg Tab PO Q4H PRN Pain MILD(1-3)/Fever >100.5/[id number] Heparin Sodium (Porcine) 5,000 unit 08/24/22 15:30 08/25/22 11:38 Heparin 5,000 Unit/1 Ml Vial SUB-Q 5,000 unit Q12HR ANURADHA Administration Cefepime HCl 2 gm in 100 mls @ 200 mls/hr 08/24/22 16:00 08/25/22 09:00 Cefepime/Ns 2 Gm/100 Ml IV 200 mls/hr Q8H ANURADHA Administration Protocol Sodium Chloride 1,000 mls @ 100 mls/hr 08/25/22 01:17 08/25/22 11:39 Nacl 0.9% 1000 Ml IV 100 mls/hr DIRECT ANURADHA Administration Metronidazole 500 mg in 100 mls @ 100 mls/hr 08/25/22 14:00 Flagyl 500 Mg/100 Ml IV Q8HR ANURADHA Protocol Insulin Human Lispro 0 unit 08/25/22 07:30 08/25/22 07:30 Insulin Lispro 100 Unit/Ml SUB-Q Not Given ACHS ANURADHA Protocol Morphine Sulfate 2 mg 08/24/22 15:11 Morphine 2 Mg/1 Ml Inj IV Q4H PRN Pain, Moderate (4-6) Ondansetron HCl 4 mg 08/24/22 15:11 Ondansetron 4 Mg/2 Ml Inj IV Q3H PRN Nausea And Vomiting Sodium Chloride 10 ml 08/24/22 16:00 08/24/22 21:11 Sodium Chloride 0.9% 10 Ml Flush Syringe IV 10 ml BID ANURADHA Administration Sodium Chloride 10 ml 08/24/22 15:11 Sodium Chloride 0.9% 10 Ml Flush Syringe IV PRN PRN LINE FLUSH Nutrition/Malnutrition Assess - Dietary Evaluation Nutrition/Malnutrition Findings: Nutrition Notes Start: 08/25/22 08:15 Freq: Status: Active Protocol: Document 08/25/22 08:15 CM (Rec: 08/25/22 08:19 CM [id number]) Co-Sign 08/25/22 08:15 WW Nutrition Notes Need for Assessment generated from: mixing machine feeder Initial or Follow up Brief Note Current Diagnosis Diabetes,Sepsis Other Pertinent Diagnosis Acute hepatitis, cholangitis, multiple sclerosis, anemia Current Diet Cardiac Diet Labs/Tests 08/25: K 3.5 CO2 21 AST 46 ALT 111 ALP 629 Pertinent Medications Reviewed Height 5 ft Weight 55.79 kg [place] Body Weight (kg) 45.45 BMI 24.0 Intake Prior to Admission Good Weight change and time frame No unintentional wt 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 Weight Status Appropriate Subjective/Other Information RD consult for skin risk assessment. Chart reviewed. Pt integumentary system WNL - no symptoms, Rolf Score 19, no noted breakdown per physical assessment. Will monitor need for nutritional assessment. Percent of energy/protein needs met: Cardiac Diet provides 2230kcal /85g PRO q day Burn Absent Trauma Absent GI Symptoms Nausea Food Allergy No Skin Integrity/Comment WNL Nutrition Intervention Follow-Up By: 08/31/22 Additional Comments Monitor need for nutritional assessment
[2022-08-25] MEDS: metroNIDAZOLE/NS 500 MG/100 ML 500 MG/100 ML BAG IV SCH ×2 (14:00→21:22)
--- NOTE | 2022-08-25 15:52 | Gastroenterology Progress Note ---
Assessment and Plan # Jaundice # Elevated LFTs - T bili at 15.9 up from 8 on the 24th, ALT 182, alk phos 728 from 775 on the 24th. Also noted to have new leukocytosis with white count at 24.9 and lactic acid elevated at 3.5. - recent admission with work up including CT/abdominal US. CT showed reviewed contracted gallbladder containing small amount of sludge with mucosal thickening and edematous wall, no biliary ductal dilation or choledocholithiasis and US with small stones and sludge in the gallbladder. -MRI without any biliary ductal dilation or obstruction. Gallbladder thickening noted. -Suspect elevated LFT and jaundice may be more drug-induced liver injury. patient is not sure about medications that she takes but azathioprine was listed on home meds and patient was on another new medication for MS recently. - acute viral hep panel negative last week. -Other liver labs including ASMA, AMA, PRASHANTH, EBV, HSV serology pending. -INR normal. Rec -Continue to monitor LFTs and INR. -Consider surgery consult for gallbladder wall thickening. -Recommend continue with home dose prednisone. - cont with sepsis protocol. - cont with empiric antibiotics. ID on board. - will follow up. - Patient Problems (1) Jaundice Current Visit: Yes Status: Acute Subjective Date of service: 08/25/22 Interval history: No abdominal pain. No nausea/vomiting. Objective - Constitutional Vitals: Temp Pulse Resp BP Pulse Ox 98.2 F 54 L 12 165/89 100 08/24/22 23:00 08/25/22 02:30 08/25/22 02:30 08/25/22 02:30 08/25/22 04:40 General appearance: no acute distress - EENT Eyes: scleral icterus ENT: hearing intact - Neck Neck: supple - Respiratory Respiratory effort: normal - Cardiovascular Rhythm: regular Heart Sounds: Present: S1 & S2 - Gastrointestinal General gastrointestinal: Present: soft, non-tender, non-distended - Integumentary Integumentary: Present: jaundice - Neurologic Neurological: alert and oriented x3 - Psychiatric Psychiatric: appropriate mood/affect - Labs CBC & Chem 7: 08/25/22 04:53 08/25/22 04:53 Labs: Laboratory Results - last 24 hr 08/24/22 08/24/22 08/24/22 16:21 17:03 20:39 WBC RBC Hgb Hct MCV MCH MCHC RDW Plt Count Lymph # (Auto) Add Manual Diff Total Counted Seg Neuts % (Manual) Band Neutrophils % Lymphocytes % (Manual) Reactive Lymphs % (Man) Monocytes % (Manual) Eosinophils % (Manual) Basophils % (Manual) Metamyelocytes % Myelocytes % Promyelocytes % Blast Cells % Nucleated RBC % Seg Neutrophils # Man Band Neutrophils # Lymphocytes # (Manual) Abs React Lymphs (Man) Monocytes # (Manual) Eosinophils # (Manual) Basophils # (Manual) Metamyelocytes # Myelocytes # Promyelocytes # Blast Cells # WBC Morphology Hypersegmented Neuts Hyposegmented Neuts Hypogranular Neuts Smudge Cells Toxic Granulation Toxic Vacuolation Dohle Bodies Pelger-Huet Anomaly Yolanda Rods Platelet Estimate Clumped Platelets Plt Clumps, EDTA Large Platelets Giant Platelets Platelet Satelliting Plt Morphology Comment RBC Morphology Dimorphic RBCs Polychromasia Hypochromasia Poikilocytosis Anisocytosis Microcytosis Macrocytosis Spherocytes Pappenheimer Bodies Sickle Cells Target Cells Tear Drop Cells Ovalocytes Helmet Cells [place] Bodies [place] Rings Sonido Cells Bite Cells Crenated Cell Elliptocytes Acanthocytes (Spur) Rouleaux Hemoglobin C Crystals Schistocytes Malaria parasites Rob Bodies Hem Pathologist Commnt PT INR Sodium Potassium Chloride Carbon Dioxide Anion Gap BUN Creatinine Estimated GFR BUN/Creatinine Ratio Glucose POC Glucose Lactic Acid 2.40 H* 2.30 H* Calcium Total Bilirubin Direct Bilirubin Indirect Bilirubin AST ALT Alkaline Phosphatase Total Protein Albumin Albumin/Globulin Ratio Lipase Urine Color Daniela Urine Turbidity Clear Urine pH 5.0 Ur Specific [place] 1.010 Urine Protein <15 mg/dl Urine Glucose (UA) 150 Urine Ketones Neg Urine Blood Sm Urine Nitrite Neg Urine Bilirubin Mod Urine Ictotest Positive Urine Urobilinogen 2.0 Ur Leukocyte Esterase Tr Urine WBC (Auto) 1.0 Urine RBC (Auto) > 1.0 U Epithel Cells (Auto) < 1.0 08/24/22 08/24/22 08/24/22 20:39 20:39 20:39 WBC RBC Hgb Hct MCV MCH MCHC RDW Plt Count Lymph # (Auto) Add Manual Diff Total Counted Seg Neuts % (Manual) Band Neutrophils % Lymphocytes % (Manual) Reactive Lymphs % (Man) Monocytes % (Manual) Eosinophils % (Manual) Basophils % (Manual) Metamyelocytes % Myelocytes % Promyelocytes % Blast Cells % Nucleated RBC % Seg Neutrophils # Man Band Neutrophils # Lymphocytes # (Manual) Abs React Lymphs (Man) Monocytes # (Manual) Eosinophils # (Manual) Basophils # (Manual) Metamyelocytes # Myelocytes # Promyelocytes # Blast Cells # WBC Morphology Hypersegmented Neuts Hyposegmented Neuts Hypogranular Neuts Smudge Cells Toxic Granulation Toxic Vacuolation Dohle Bodies Pelger-Huet Anomaly Yolanda Rods Platelet Estimate Clumped Platelets Plt Clumps, EDTA Large Platelets Giant Platelets Platelet Satelliting Plt Morphology Comment RBC Morphology Dimorphic RBCs Polychromasia Hypochromasia Poikilocytosis Anisocytosis Microcytosis Macrocytosis Spherocytes Pappenheimer Bodies Sickle Cells Target Cells Tear Drop Cells Ovalocytes Helmet Cells [place] Bodies [place] Rings Sonido Cells Bite Cells Crenated Cell Elliptocytes Acanthocytes (Spur) Rouleaux Hemoglobin C Crystals Schistocytes Malaria parasites Rob Bodies Hem Pathologist Commnt PT 14.7 INR 1.01 Sodium 138 D Potassium 3.8 Chloride 101.3 Carbon Dioxide 22 Anion Gap 19 BUN 16 Creatinine < 0.2 L Estimated GFR > 60 BUN/Creatinine Ratio 80 Glucose 146 H POC Glucose Lactic Acid Calcium 8.5 Total Bilirubin 14.90 H Direct Bilirubin Indirect Bilirubin AST 49 H ALT 147 H Alkaline Phosphatase 696 H Total Protein 5.4 L Albumin 2.6 L Albumin/Globulin Ratio 0.9 Lipase 251 H Urine Color Urine Turbidity Urine pH Ur Specific [place] Urine Protein Urine Glucose (UA) Urine Ketones Urine Blood Urine Nitrite Urine Bilirubin Urine Ictotest Urine Urobilinogen Ur Leukocyte Esterase Urine WBC (Auto) Urine RBC (Auto) U Epithel Cells (Auto) 08/24/22 08/24/22 08/25/22 20:39 22:58 04:53 WBC RBC Hgb Hct MCV MCH MCHC RDW Plt Count Lymph # (Auto) Add Manual Diff Total Counted Seg Neuts % (Manual) Band Neutrophils % Lymphocytes % (Manual) Reactive Lymphs % (Man) Monocytes % (Manual) Eosinophils % (Manual) Basophils % (Manual) Metamyelocytes % Myelocytes % Promyelocytes % Blast Cells % Nucleated RBC % Seg Neutrophils # Man Band Neutrophils # Lymphocytes # (Manual) Abs React Lymphs (Man) Monocytes # (Manual) Eosinophils # (Manual) Basophils # (Manual) Metamyelocytes # Myelocytes # Promyelocytes # Blast Cells # WBC Morphology Hypersegmented Neuts Hyposegmented Neuts Hypogranular Neuts Smudge Cells Toxic Granulation Toxic Vacuolation Dohle Bodies Pelger-Huet Anomaly Yolanda Rods Platelet Estimate Clumped Platelets Plt Clumps, EDTA Large Platelets Giant Platelets Platelet Satelliting Plt Morphology Comment RBC Morphology Dimorphic RBCs Polychromasia Hypochromasia Poikilocytosis Anisocytosis Microcytosis Macrocytosis Spherocytes Pappenheimer Bodies Sickle Cells Target Cells Tear Drop Cells Ovalocytes Helmet Cells Law-[place] Bodies [place] Rings [place] Cells Bite Cells Crenated Cell Elliptocytes Acanthocytes (Spur) Rouleaux Hemoglobin C Crystals Schistocytes Malaria parasites Rob Bodies Hem Pathologist Commnt PT INR Sodium Potassium Chloride Carbon Dioxide Anion Gap BUN Creatinine Estimated GFR BUN/Creatinine Ratio Glucose POC Glucose 146 H Lactic Acid 1.40 Calcium Total Bilirubin 15.00 H Direct Bilirubin 12.4 H Indirect Bilirubin 2.6 AST 47 H ALT 146 H Alkaline Phosphatase 685 H Total Protein 5.3 L Albumin 2.5 L Albumin/Globulin Ratio 0.9 Lipase Urine Color Urine Turbidity Urine pH Ur Specific [place] Urine Protein Urine Glucose (UA) Urine Ketones Urine Blood Urine Nitrite Urine Bilirubin Urine Ictotest Urine Urobilinogen Ur Leukocyte Esterase Urine WBC (Auto) Urine RBC (Auto) U Epithel Cells (Auto) 08/25/22 08/25/22 08/25/22 04:53 04:53 07:31 WBC 16.1 H RBC 3.04 L Hgb 8.2 L Hct 25.1 L MCV 82 MCH 27 L MCHC 33 RDW 17.7 H Plt Count 463 H Lymph # (Auto) Maintenance Team Leader Add Manual Diff Complete Total Counted 100 Seg Neuts % (Manual) 89.0 H Band Neutrophils % 6.0 Lymphocytes % (Manual) 4.0 L Reactive Lymphs % (Man) 0 Monocytes % (Manual) 0 Eosinophils % (Manual) 1.0 Basophils % (Manual) 0 Metamyelocytes % 0 Myelocytes % 0 Promyelocytes % 0 Blast Cells % 0 Nucleated RBC % Not Reportable Seg Neutrophils # Man 14.3 H Band Neutrophils # 1.0 Lymphocytes # (Manual) 0.6 L Abs React Lymphs (Man) 0.0 Monocytes # (Manual) 0.0 Eosinophils # (Manual) 0.2 Basophils # (Manual) 0.0 Metamyelocytes # 0.0 Myelocytes # 0.0 Promyelocytes # 0.0 Blast Cells # 0.0 WBC Morphology Not Reportable Hypersegmented Neuts Not Reportable Hyposegmented Neuts Not Reportable Hypogranular Neuts Not Reportable Smudge Cells Not Reportable Toxic Granulation Not Reportable Toxic Vacuolation Not Reportable Dohle Bodies Not Reportable Pelger-Huet Anomaly Not Reportable Yolanda Rods Not Reportable Platelet Estimate Cons Clumped Platelets Not Reportable Plt Clumps, EDTA Not Reportable Large Platelets Rare Giant Platelets Not Reportable Platelet Satelliting Not Reportable Plt Morphology Comment Not Reportable RBC Morphology Not Reportable Dimorphic RBCs Not Reportable Polychromasia Not Reportable Hypochromasia 1+ Poikilocytosis Not Reportable Anisocytosis 1+ Microcytosis Not Reportable Macrocytosis Not Reportable Spherocytes Not Reportable Pappenheimer Bodies Not Reportable Sickle Cells Not Reportable Target Cells 1+ Tear Drop Cells Not Reportable Ovalocytes Not Reportable Helmet Cells Not Reportable [place] Bodies Not Reportable [place] Rings Not Reportable [place] Cells Not Reportable Bite Cells Not Reportable Crenated Cell Not Reportable Elliptocytes Not Reportable Acanthocytes (Spur) Not Reportable Rouleaux Not Reportable Hemoglobin C Crystals Not Reportable Schistocytes Not Reportable Malaria parasites Not Reportable Rob Bodies Not Reportable Hem Pathologist Commnt No PT INR Sodium 140 Potassium 3.5 L Chloride 104.7 Carbon Dioxide 21 L Anion Gap 18 BUN 13 Creatinine < 0.2 L Estimated GFR > 60 BUN/Creatinine Ratio 65 Glucose 121 H POC Glucose 115 H Lactic Acid Calcium 8.0 L Total Bilirubin 12.70 H Direct Bilirubin Indirect Bilirubin AST 46 H ALT 111 H Alkaline Phosphatase 629 H Total Protein 4.7 L Albumin 2.4 L Albumin/Globulin Ratio 1.0 Lipase Urine Color Urine Turbidity Urine pH Ur Specific [place] Urine Protein Urine Glucose (UA) Urine Ketones Urine Blood Urine Nitrite Urine Bilirubin Urine Ictotest Urine Urobilinogen Ur Leukocyte Esterase Urine WBC (Auto) Urine RBC (Auto) U Epithel Cells (Auto) - Imaging MRI: report reviewed
--- NOTE | 2022-08-25 17:50 | Electrocardiograph Report ---
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
[2022-08-26] MEDS: metroNIDAZOLE/NS 500 MG/100 ML 500 MG/100 ML BAG IV SCH ×3 (05:56→21:11)
[2022-08-26] MEDS: SODIUM CHLORIDE 0.9% 1000 ML 1,000 ML IV SCH (07:18)
[2022-08-26 07:47] LABS: Hematocrit 24.4 % (30.3-42.9); Hemoglobin 8.3 gm/dl (10.1-14.3); Mean Corpuscular HGB Conc 34 % (30-34); Mean Corpuscular Volume 82 fl (79-97); Platelet Count 497 K/mm3 (140-440); Red Blood Count 2.99 M/mm3 (3.65-5.03); Red Cell Distribution Width 17.8 % (13.2-15.2)
[2022-08-26] MEDS ORDERED: glipiZIDE 5 MG TAB PO SCH ×2 (08:00→17:00)
[2022-08-26 08:03] LABS: Alanine Aminotransferase 88 units/L (7-56); Albumin 2.3 g/dL (3.9-5); Blood Urea Nitrogen 8 mg/dL (7-17); Calcium 8.3 mg/dL (8.4-10.2); Hemolysis Index 0
[2022-08-26 08:04] LABS: BUN/Creatinine Ratio 40
[2022-08-26] MEDS: CEFEPIME/NS 2 GM/100 ML 2 GM/100 ML BAG IV SCH (09:14)
[2022-08-26] MEDS: HEPARIN 5,000 UNIT/1 ML VIAL SUB-Q SCH ×2 (09:15→21:12)
[2022-08-26] MEDS: GABAPENTIN 300 MG CAP PO SCH ×2 (09:15→21:11)
[2022-08-26] MEDS ORDERED: predniSONE 5 MG TAB PO SCH (10:00)
[2022-08-26] MEDS ORDERED: NON-FORMULARY EACH (Prednisone [Prednisone (Rayos) Er Tab] 5 MG Tablet.Dr) PO SCH (10:00)
--- NOTE | 2022-08-26 10:42 | Progress Note ---
Assessment and Plan Cultures: 08/24/2022 blood culture: no growth. A/P: 52-year-old female originally from [facility] who was recently hospitalized from 08/18 to 08/22/2022, found to have elevated LFTs, jaundice, was seen by GIramón worked up for possible autoimmune hepatitis versus primary biliary cholangitis. Does have history of multiple sclerosis on treatment. Now readmitted with worsening weakness, nausea and jaundice: #Leukocytosis, reactive thrombocytosis: did have some low grade fever at home, cover for cholangitis. Improved. #Jaundice with elevated LFTs: Direct hyperbilirubinemia, mild elevation of transaminases, alkaline phosphatase 629, total bilirubin of 12.7 today. Hepatitis panel nonreactive. GI following. Drug-induced liver injury possible. MRCP showed focal thickening of the gallbladder wall, focal adenomyomatosis. No evidence of cholelithiasis or choledocholithiasis, unremarkable MR appearance of the liver. 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 Has previously rec eived steroids. Last month, did not respond to steroids and underwent plasma exchange at [facility]. Recs: Cefepime de-escalated to IV Ceftriaxone, continue Flagyl for now monitor CBC and LFTs Chano Mayfield MD, FACP, [facility] ([facility] O: [phone] F: [phone] C: [phone] Subjective Date of service: 08/26/22 Interval history: No fever. Feeling slightly better today. at bedside. Objective - Exam Narrative Exam: Physical Exam: Constitutional: Alert, cooperative. No acute distress Head, Ears, Nose: Normocephalic, atraumatic. External ears, nose normal Eyes: Conjunctivae/corneas clear. + Icterus. No ptosis. Neck: Supple, no meningeal signs Cardiovascular: S1, S2 + Respiratory: Good air entry, clear to auscultation bilaterally GI: Soft, non-tender; bowel sounds normal. No peritoneal signs Musculoskeletal: No pedal edema, no cyanosis. Skin: No rash or abscess Hem/Lymphatic: No palpable cervical or supraclavicular nodes. No lymphangitis Psych: Mood ok. Affect normal Neurological: Awake, alert, oriented. No gross abnormality - Constitutional Vitals: Vital Signs Temp Pulse Resp BP Pulse Ox 97.6 F 81 18 109/74 100 08/26/22 05:24 08/26/22 05:24 08/26/22 05:24 08/26/22 05:24 08/26/22 05:24 Temperature -Last 24 Hours Temperature 97.6 F Temperature 98.1 F Temperature 99.4 F - Labs CBC & Chem 7: 08/26/22 07:17 08/26/22 07:17 Labs: Abnormal lab results 08/25/22 08/26/22 08/26/22 Range/Units 23:08 06:15 07:17 RBC 2.99 L (3.65-5.03) M/mm3 Hgb 8.3 L (10.1-14.3) gm/dl Hct 24.4 L (30.3-42.9) % RDW 17.8 H (13.2-15.2) % Plt Count 497 H (140-440) K/mm3 Potassium (3.6-5.0) mmol/L Creatinine (0.6-1.2) mg/dL Glucose (65-100) mg/dL POC Glucose 146 H (70-105) mg/dL Hemoglobin A1c 8.1 H (4-6) % Calcium (8.4-10.2) mg/dL Total Bilirubin (0.1-1.2) mg/dL AST (5-40) units/L ALT (7-56) units/L Alkaline Phosphatase (35-129) units/L Total Protein (6.3-8.2) g/dL Albumin (3.9-5) g/dL 08/26/22 Range/Units 07:17 RBC (3.65-5.03) M/mm3 Hgb (10.1-14.3) gm/dl Hct (30.3-42.9) % RDW (13.2-15.2) % Plt Count (140-440) K/mm3 Potassium 3.3 L (3.6-5.0) mmol/L Creatinine < 0.2 L (0.6-1.2) mg/dL Glucose 163 H (65-100) mg/dL POC Glucose (70-105) mg/dL Hemoglobin A1c (4-6) % Calcium 8.3 L (8.4-10.2) mg/dL Total Bilirubin 12.10 H (0.1-1.2) mg/dL AST 73 H (5-40) units/L ALT 88 H (7-56) units/L Alkaline Phosphatase 698 H (35-129) units/L Total Protein 5.0 L (6.3-8.2) g/dL Albumin 2.3 L (3.9-5) g/dL
[2022-08-26] MEDS ORDERED: cefTRIAXone/NS 1 GM/50 ML 1 GM/50 ML BAG IV SCH (11:00)
[2022-08-26] MEDS: POTASSIUM CHLORIDE ER 20 MEQ TAB PO SCH ×2 (11:31→16:46)
[2022-08-26] MEDS: BENZONATATE 100 MG CAP PO SCH ×2 (11:31→21:11)
[2022-08-26] MEDS: INSULIN LISPRO 100 UNIT/ML SUB-Q SCH ×4 (11:32→21:13)
[2022-08-26 13:27] LABS: INR 0.97 (0.87-1.13)
--- NOTE | 2022-08-26 14:36 | Progress Note ---
Assessment and Plan Assessment and plan: #Sepsis #Possible cholangitis #Acute hepatitis-autoimmune vs drug induced #Elevated liver enzymes-improving #Gallbladder wall thickening CT abd/pelvis showed hepatic steatosis and irregularity at fundus of the gallbladder Possible cholangitis because of the increased alk phosphatase and total bilirubin; continue cefepime and flagyl azathioprine held due to possibility of causing elevated LFTs will continue prednisone at home dose ddx also include primary biliary cholangitis vs primary sclerosing cholangitis GI and ID following, assistance appreciated General surgery consulted, imaging reviewed, concern for malignancy; patient to be transferred to [facility] for further care #Insulin-dependent type 2 diabetes -A1C 8.1% -continue SSI +accuchecks #Peripheral neuropathy -will resume gabapentin #Multiple sclerosis azathioprine held due to concern for drug induced hepatitis continue prednisone taper (currently at 5mg) #Anemia -chronic, baseline Hgb 8.4 -likely secondary to chronic disease, MS -will continue to monitor -will transfuse for Hgb less than 7 #Moderate protein calorie malnutrition -albumin 2.4 #Advanced care planning Disease education conducted, care plan discussed, diagnosis and prognosis discussed. Patient is full code. Patient acknowledged understanding of the care plan. +30 minutes. #Hypotension-resolved #Lactic acidosis-resolved #Discharge planning -Discussed current clinical care with Dr. Eid from [place]. Patient will be transferred to tertiary facility to address the gallbladder findings pending available bed. Will continue with current clinical care. History Interval history: No acute events overnight. Patient only complains of dry cough. She denies abdominal pain, discomfort, nausea or vomiting. We discussed transfer to outside hospital with patient and her . Both are agreeable. Hospitalist Physical - Physical exam Narrative exam: GENERAL: Well-developed well-nourished. In no acute distress. HEENT: Scleral icterus. NECK: Supple. CHEST/LUNGS: CTAB on room air HEART/CARDIOVASCULAR: RRR. No murmur, rubs or gallops appreciated. ABDOMEN: +BS. NT/ND. SKIN: Visibily jaundiced. NEURO: No focal motor deficit. Follows all commands and is ambulatory. MUSCULOSKELETAL: No joint effusion EXTREMITIES: No cyanosis, clubbing or edema. PSYCH: Cooperative. - Constitutional Vitals: Temp Pulse Resp BP Pulse Ox 98.2 F 91 H 18 127/79 98 08/26/22 11:56 08/26/22 11:56 08/26/22 11:56 08/26/22 11:56 08/26/22 11:56 General appearance: Present: no acute distress, well-nourished HEART Score - HEART Score Troponin: Troponin T < 0.010 ng/mL (0.00-0.029) 08/24/22 11:24 Results - Labs CBC & Chem 7: 08/26/22 07:17 08/26/22 07:17 Labs: Laboratory Last Values WBC 8.4 K/mm3 (4.5-11.0) 08/26/22 07:17 RBC 2.99 M/mm3 (3.65-5.03) L 08/26/22 07:17 Hgb 8.3 gm/dl (10.1-14.3) L 08/26/22 07:17 Hct 24.4 % (30.3-42.9) L 08/26/22 07:17 MCV 82 fl (79-97) 08/26/22 07:17 MCH 28 pg (28-32) 08/26/22 07:17 MCHC 34 % (30-34) 08/26/22 07:17 RDW 17.8 % (13.2-15.2) H 08/26/22 07:17 Plt Count 497 K/mm3 (140-440) H 08/26/22 07:17 Lymph # (Auto) Csw 08/25/22 04:53 Add Manual Diff Complete 08/25/22 04:53 Total Counted 100 08/25/22 04:53 Seg Neuts % (Manual) 89.0 % (40.0-70.0) H 08/25/22 04:53 Band Neutrophils % 6.0 % 08/25/22 04:53 Lymphocytes % (Manual) 4.0 % (13.4-35.0) L 08/25/22 04:53 Reactive Lymphs % (Man) 0 % 08/25/22 04:53 Monocytes % (Manual) 0 % (0.0-7.3) 08/25/22 04:53 Eosinophils % (Manual) 1.0 % (0.0-4.3) 08/25/22 04:53 Basophils % (Manual) 0 % (0.0-1.8) 08/25/22 04:53 Metamyelocytes % 0 % 08/25/22 04:53 Myelocytes % 0 % 08/25/22 04:53 Promyelocytes % 0 % 08/25/22 04:53 Blast Cells % 0 % 08/25/22 04:53 Nucleated RBC % Not Reportable 08/25/22 04:53 Seg Neutrophils # Man 14.3 K/mm3 (1.8-7.7) H 08/25/22 04:53 Band Neutrophils # 1.0 K/mm3 08/25/22 04:53 Lymphocytes # (Manual) 0.6 K/mm3 (1.2-5.4) L 08/25/22 04:53 Abs React Lymphs (Man) 0.0 K/mm3 08/25/22 04:53 Monocytes # (Manual) 0.0 K/mm3 (0.0-0.8) 08/25/22 04:53 Eosinophils # (Manual) 0.2 K/mm3 (0.0-0.4) 08/25/22 04:53 Basophils # (Manual) 0.0 K/mm3 (0.0-0.1) 08/25/22 04:53 Metamyelocytes # 0.0 K/mm3 08/25/22 04:53 Myelocytes # 0.0 K/mm3 08/25/22 04:53 Promyelocytes # 0.0 K/mm3 08/25/22 04:53 Blast Cells # 0.0 K/mm3 08/25/22 04:53 WBC Morphology Not Reportable 08/25/22 04:53 Hypersegmented Neuts Not Reportable 08/25/22 04:53 Hyposegmented Neuts Not Reportable 08/25/22 04:53 Hypogranular Neuts Not Reportable 08/25/22 04:53 Smudge Cells Not Reportable 08/25/22 04:53 Toxic Granulation Not Reportable 08/25/22 04:53 Toxic Vacuolation Not Reportable 08/25/22 04:53 Dohle Bodies Not Reportable 08/25/22 04:53 Pelger-Huet Anomaly Not Reportable 08/25/22 04:53 Yolanda Rods Not Reportable 08/25/22 04:53 Platelet Estimate Cons 08/25/22 04:53 Clumped Platelets Not Reportable 08/25/22 04:53 Plt Clumps, EDTA Not Reportable 08/25/22 04:53 Large Platelets Rare 08/25/22 04:53 Giant Platelets Not Reportable 08/25/22 04:53 Platelet Satelliting Not Reportable 08/25/22 04:53 Plt Morphology Comment Not Reportable 08/25/22 04:53 RBC Morphology Not Reportable 08/25/22 04:53 Dimorphic RBCs Not Reportable 08/25/22 04:53 Polychromasia Not Reportable 08/25/22 04:53 Hypochromasia 1+ 08/25/22 04:53 Poikilocytosis Not Reportable 08/25/22 04:53 Anisocytosis 1+ 08/25/22 04:53 Microcytosis Not Reportable 08/25/22 04:53 Macrocytosis Not Reportable 08/25/22 04:53 Spherocytes Not Reportable 08/25/22 04:53 Pappenheimer Bodies Not Reportable 08/25/22 04:53 Sickle Cells Not Reportable 08/25/22 04:53 Target Cells 1+ 08/25/22 04:53 Tear Drop Cells Not Reportable 08/25/22 04:53 Ovalocytes Not Reportable 08/25/22 04:53 Helmet Cells Not Reportable 08/25/22 04:53 Law-Lindsey Bodies Not Reportable 08/25/22 04:53 Frederick Rings Not Reportable 08/25/22 04:53 Sonido Cells Not Reportable 08/25/22 04:53 Bite Cells Not Reportable 08/25/22 04:53 Crenated Cell Not Reportable 08/25/22 04:53 Elliptocytes Not Reportable 08/25/22 04:53 Acanthocytes (Spur) Not Reportable 08/25/22 04:53 Rouleaux Not Reportable 08/25/22 04:53 Hemoglobin C Crystals Not Reportable 08/25/22 04:53 Schistocytes Not Reportable 08/25/22 04:53 Malaria parasites Not Reportable 08/25/22 04:53 Rob Bodies Not Reportable 08/25/22 04:53 Hem Pathologist Commnt No 08/25/22 04:53 PT 14.2 Sec. (12.2-14.9) 08/26/22 12:37 INR 0.97 (0.87-1.13) 08/26/22 12:37 Sodium 139 mmol/L (137-145) 08/26/22 07:17 Potassium 3.3 mmol/L (3.6-5.0) L 08/26/22 07:17 Chloride 105.1 mmol/L (98-107) 08/26/22 07:17 Carbon Dioxide 22 mmol/L (22-30) 08/26/22 07:17 Anion Gap 15 mmol/L 08/26/22 07:17 BUN 8 mg/dL (7-17) 08/26/22 07:17 Creatinine < 0.2 mg/dL (0.6-1.2) L 08/26/22 07:17 Estimated GFR > 60 ml/min 08/26/22 07:17 BUN/Creatinine Ratio 40 % 08/26/22 07:17 Glucose 163 mg/dL (65-100) H 08/26/22 07:17 POC Glucose 146 mg/dL (70-105) H 08/25/22 23:08 Hemoglobin A1c 8.1 % (4-6) H 08/26/22 06:15 Ketones Quantitative Negative (Negative) 08/24/22 11:24 Lactic Acid 1.40 mmol/L (0.7-2.0) 08/25/22 04:53 Calcium 8.3 mg/dL (8.4-10.2) L 08/26/22 07:17 Total Bilirubin 12.10 mg/dL (0.1-1.2) H 08/26/22 07:17 Direct Bilirubin 12.4 mg/dL (0-0.2) H 08/24/22 20:39 Indirect Bilirubin 2.6 mg/dL 08/24/22 20:39 AST 73 units/L (5-40) H 08/26/22 07:17 ALT 88 units/L (7-56) H 08/26/22 07:17 Alkaline Phosphatase 698 units/L (35-129) H 08/26/22 07:17 Ammonia 34.0 umol/L (25-60) 08/24/22 11:24 Total Creatine Kinase 12 units/L (30-135) L 08/24/22 11:24 Troponin T < 0.010 ng/mL (0.00-0.029) 08/24/22 11:24 C-Reactive Protein 34.60 mg/dL (0.00-1.30) H 08/24/22 11:24 NT-Pro-B Natriuret Pep 4485 pg/mL (0-900) H 08/24/22 11:24 Total Protein 5.0 g/dL (6.3-8.2) L 08/26/22 07:17 Albumin 2.3 g/dL (3.9-5) L 08/26/22 07:17 Albumin/Globulin Ratio 0.9 % 08/26/22 07:17 Lipase 251 units/L (13-60) H 08/24/22 20:39 Urine Color Daniela (Yellow) 08/24/22 16:21 Urine Turbidity Clear (Clear) 08/24/22 16:21 Urine pH 5.0 (5.0-7.0) 08/24/22 16:21 Ur Specific [place] 1.010 (1.003-1.030) 08/24/22 16:21 Urine Protein <15 mg/dl mg/dL (Negative) 08/24/22 16:21 Urine Glucose (UA) 150 mg/dL (Negative) 08/24/22 16:21 Urine Ketones Neg mg/dL (Negative) 08/24/22 16:21 Urine Blood Sm (Negative) 08/24/22 16:21 Urine Nitrite Neg (Negative) 08/24/22 16:21 Urine Bilirubin Mod (Negative) 08/24/22 16:21 Urine Ictotest Positive (Negative) 08/24/22 16:21 Urine Urobilinogen 2.0 mg/dL (<2.0) 08/24/22 16:21 Ur Leukocyte Esterase Tr (Negative) 08/24/22 16:21 Urine WBC (Auto) 1.0 /HPF (0.0-6.0) 08/24/22 16:21 Urine RBC (Auto) > 1.0 /HPF (0.0-6.0) 08/24/22 16:21 U Epithel Cells (Auto) < 1.0 /HPF (0-13.0) 08/24/22 16:21 Salicylates < 0.3 mg/dL (2.8-20.0) L 08/24/22 11:24 Acetaminophen 5.0 ug/mL (10.0-30.0) L 08/24/22 11:24 Plasma/Serum Alcohol < 0.01 % (0-0.07) 08/24/22 11:24 Microbiology: Microbiology 08/24/22 11:24 Peripheral/Venous Blood Culture - Preliminary NO GROWTH AFTER 48 HOURS 08/24/22 11:24 Peripheral/Venous Blood Culture - Preliminary NO GROWTH AFTER 48 HOURS Cervantes/IV: Voiding Method Bedside Commode Active Medications - Current Medications Current Medications: Generic Name Dose Route Start Last Admin Trade Name Freq PRN Reason Stop Dose Admin Acetaminophen 650 mg 08/24/22 15:11 Acetaminophen 325 Mg Tab PO Q4H PRN Pain MILD(1-3)/Fever >100.5/[id number] Benzonatate 100 mg 08/26/22 11:30 08/26/22 11:31 Benzonatate 100 Mg Cap PO 100 mg Q8HR ANURADHA Administration Gabapentin 300 mg 08/26/22 10:00 08/26/22 09:15 Gabapentin 300 Mg Cap PO 300 mg BID ANURADHA Administration Glipizide 10 mg 08/26/22 08:00 08/26/22 09:15 Glipizide 5 Mg Tab PO 10 mg QAMDIAB ANURADHA Administration Glipizide 5 mg 08/26/22 17:00 Glipizide 5 Mg Tab PO QPMDIAB ANURADHA Heparin Sodium (Porcine) 5,000 unit 08/24/22 15:30 08/26/22 09:15 Heparin 5,000 Unit/1 Ml Vial SUB-Q 5,000 unit Q12HR ANURAHDA Administration Sodium Chloride 1,000 mls @ 100 mls/hr 08/25/22 01:17 08/26/22 07:18 Nacl 0.9% 1000 Ml IV 100 mls/hr DIRECT ANURADHA Administration Metronidazole 500 mg in 100 mls @ 100 mls/hr 08/25/22 14:00 08/26/22 13:54 Flagyl 500 Mg/100 Ml IV 100 mls/hr Q8HR ANURADHA Administration Protocol Ceftriaxone Sodium 1 gm in 50 mls @ 100 mls/hr 08/26/22 11:00 08/26/22 11:31 Rocephin/Ns 1 Gm/50 Ml IV 100 mls/hr Q24HR ANURADHA Administration Protocol Insulin Human Lispro 0 unit 08/25/22 07:30 08/26/22 12:30 Insulin Lispro 100 Unit/Ml SUB-Q 4 unit ACHS ANURADHA Administration Protocol Morphine Sulfate 2 mg 08/24/22 15:11 Morphine 2 Mg/1 Ml Inj IV Q4H PRN Pain, Moderate (4-6) Ondansetron HCl 4 mg 08/24/22 15:11 08/25/22 16:16 Ondansetron 4 Mg/2 Ml Inj IV 4 mg Q3H PRN Administration Nausea And Vomiting Prednisone 5 mg 08/26/22 10:00 08/26/22 09:15 Prednisone 5 Mg Tab PO 5 mg QDAY ANURADHA Administration Sodium Chloride 10 ml 08/24/22 16:00 08/26/22 09:16 Sodium Chloride 0.9% 10 Ml Flush Syringe IV 10 ml BID ANURADHA Administration Sodium Chloride 10 ml 08/24/22 15:11 Sodium Chloride 0.9% 10 Ml Flush Syringe IV PRN PRN LINE FLUSH Nutrition/Malnutrition Assess - Dietary Evaluation Nutrition/Malnutrition Findings: Nutrition Notes Start: 08/25/22 08:15 Freq: Status: Active Protocol: Document 08/25/22 08:15 CM (Rec: 08/25/22 08:19 CM [id number]) Co-Sign 08/25/22 08:15 WW Nutrition Notes 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 Weight Status Appropriate Subjective/Other Information RD consult for skin risk assessment. Chart reviewed - no %PO intake per ADL notes at this time. Pt integumentary system WNL - no symptoms, Rolf Score 19, no noted breakdown per physical assessment. Will monitor need for nutritional assessment. Percent of energy/protein needs met: Cardiac Diet provides 2230kcal /85g PRO q day (129%/127%) Burn Absent Trauma Absent GI Symptoms Nausea Food Allergy No Skin Integrity/Comment WNL Is patient on ventilator? No Is Patient Ambulatory and/or Out of Bed No REE-([facility]-confined to bed) 1311.600 Kcal/Kg value to use for calculation 31 Approximate Energy Requirements Using 1729 kcal/Kg Calculation Used for Recommendations Kcal/kg Additional Notes Protein: 1.0-1.2g/kg ABW; 56- 67g PRO q day. Fluid: 1mL/kcal or per MD. Nutrition Intervention Change Diet Order: Continue current diet order Follow-Up By: 09/01/22 Additional Comments Monitor %PO, GI symptoms, and wt status.
--- NOTE | 2022-08-26 15:11 | Discharge Summary ---
Providers - Providers Date of Admission: 08/24/22 15:11 Date of discharge: 08/26/22 Attending physician: ANSHUL GABRIEL MD 08/24/22 15:11 Consult to Physician [CONS] Routine Comment: Consulting Provider: PEDRO PARKER Physician Instructions: Reason For Exam: jaundice/r/o PBC 08/25/22 06:15 Consult to Physician [CONS] Routine Comment: Consulting Provider: NIKOLAS SALAZAR Physician Instructions: Reason For Exam: Sepsis/Cholangitis 08/26/22 07:43 Consult to Physician [CONS] Routine Comment: Consulting Provider: FISH WING Physician Instructions: Reason For Exam: gallbladder findings on MRCP/CT scan Primary care physician: KILN FIRER Hospitalization Reason for admission: hypotension Condition: Fair Hospital course: Patient is a 53-year-old female with history of multiple sclerosis and insulin dependent diabetes who presented to the ED with hypotension. She was recently released from the hospital and has had increased weakness and jaundice during period. GI was consulted. CT of the abdomen pelvis showed improved gallbladder wall thickening with irregular thickening at the fundus and hepatic steatosis. MRCP showed a focal thickening of the gallbladder wall in the fundus without cholelithiasis or choledocholithiasis. General surgery evaluated the patient and recommended transfer to a facility with hepatobiliary surgery for further evaluation. [place] was contacted and patient was discharged to [facility] once a bed was available. Disposition: 02 SHORT TERM HOSPITAL Final Discharge Diagnosis (Prints w/discharge instructions): Sepsis. Elevated liver enzymes. Gallbladder wall thickening. Painless jaundice. Insulin- dependent type 2 diabetes. Peripheral neuropathy. Multiple sclerosis. Anemia. Moderate protein calorie malnutrition Time spent for discharge: 45 minutes Core Measure Documentation - Palliative Care Palliative Care/ Comfort Measures: Not Applicable - Core Measures Any of the following diagnoses?: none Exam - Physical Exam Narrative exam: GENERAL: Well-developed well-nourished. In no acute distress. HEENT: Scleral icterus. NECK: Supple. CHEST/LUNGS: CTAB on room air HEART/CARDIOVASCULAR: RRR. No murmur, rubs or gallops appreciated. ABDOMEN: +BS. NT/ND. SKIN: Visibily jaundiced. NEURO: No focal motor deficit. Follows all commands and is ambulatory. MUSCULOSKELETAL: No joint effusion EXTREMITIES: No cyanosis, clubbing or edema. PSYCH: Cooperative. - Constitutional Vitals: Temp Pulse Resp BP Pulse Ox 98.2 F 91 H 18 127/79 98 08/26/22 11:56 08/26/22 11:56 08/26/22 11:56 08/26/22 11:56 08/26/22 11:56 Plan Care Plan Goals: Patient clinically stable to transfer to outside hospital for further care. Follow up with: PRIMARY CAREMD [Primary Care Provider] - 3-5 Days
--- NOTE | 2022-08-26 15:13 | Consultation ---
History of Present Illness Consult date: 08/26/22 Chief complaint: Weakness, jaundice - History of present illness History of present illness: 52-year-old female who presented to the hospital for the second time for weakness, fatigue, jaundice. Patient was initially admitted on 08/18/2022 with complaints of fever and chills. The patient had undergone a plasmapheresis procedure at [place] 3 weeks ago for a flare of her MS that was not responding to steroids. At that time the patient was found to have an elevated bilirubin and LFTs. She was seen and evaluated by GI. Hepatitis serology was negative. It was felt that this may be a drug reaction as patient recently was started on a new medication for MS just before symptoms started. Patient was discharged on 08/22 in stable condition however returned to the hospital on 08/24 for increasing weakness. She did take a dose of the new medication for one day after dc. She was found to have worsening hyperbilirubinemia, leukocytosis. CT A/P and MRCP showed focal gallbladder wall thickening in the fundus and malignancy ale ot be r/o. Pt states she has had many CT A/P at [facility] in the past and has never been diagnosed with gallbladder pathology. Currently she denies abd pain, n/v. She is tolerating a diet. She is having BMs and urinating without difficulty. Afebrile. Past History Past Medical History: other (ms) Past Surgical History: Other (Tubal ligation) Social history: lives with family Family history: no significant family history Medications and Allergies Allergies Allergy/AdvReac Type Severity Reaction Status Date / Time lisinopril Allergy Unknown Verified 08/24/22 10:33 Home Medications Medication Instructions Recorded Confirmed Last Taken Type Gabapentin 300 mg PO BID 08/19/22 08/26/22 Unknown History Insulin Glargine [Lantus VIAL] 10 unit SUB-Q QAM 08/19/22 08/26/22 Unknown History Prednisone [predniSONE (Andreina) ER 5 mg PO QDAY 08/19/22 08/26/22 08/18/22 08:00 History TAB] glipiZIDE [Glucotrol] 5 mg PO BID 08/19/22 08/26/22 08/18/22 08:00 History Benzonatate [Tessalon Perles] 100 mg PO Q8HR capsule 08/26/22 Unknown Rx glipiZIDE [Glucotrol] 5 mg PO QPMDIAB tablet 08/26/22 Unknown Rx glipiZIDE [Glucotrol] 10 mg PO QAMDIAB tablet 08/26/22 Unknown Rx predniSONE [Deltasone] 5 mg PO QDAY tablet 08/26/22 Unknown Rx Active Meds: Active Medications Acetaminophen (Acetaminophen 325 Mg Tab) 650 mg PO Q4H PRN PRN Reason: Pain MILD(1-3)/Fever >100.5/GUZMÁN Benzonatate (Benzonatate 100 Mg Cap) 100 mg PO Q8HR [facility] Last Admin: 08/26/22 11:31 Dose: 100 mg Gabapentin (Gabapentin 300 Mg Cap) 300 mg PO BID [facility] Last Admin: 08/26/22 09:15 Dose: 300 mg Glipizide (Glipizide 5 Mg Tab) 10 mg PO QAMDIAB [facility] Last Admin: 08/26/22 09:15 Dose: 10 mg Glipizide (Glipizide 5 Mg Tab) 5 mg PO QPMDIAB [facility] Heparin Sodium (Porcine) (Heparin 5,000 Unit/1 Ml Vial) 5,000 unit SUB-Q Q12HR [facility] Last Admin: 08/26/22 09:15 Dose: 5,000 unit Sodium Chloride (Nacl 0.9% 1000 Ml) 1,000 mls @ 100 mls/hr IV DIRECT ANURADHA Last Admin: 08/26/22 07:18 Dose: 100 mls/hr Metronidazole (Flagyl 500 Mg/100 Ml) 500 mg in 100 mls @ 100 mls/hr IV Q8HR [facility]; Protocol Last Admin: 08/26/22 13:54 Dose: 100 mls/hr Ceftriaxone Sodium (Rocephin/Ns 1 Gm/50 Ml) 1 gm in 50 mls @ 100 mls/hr IV Q24HR ANURADHA; Protocol Last Admin: 08/26/22 11:31 Dose: 100 mls/hr Insulin Human Lispro (Insulin Lispro 100 Unit/Ml) 0 unit SUB-Q ACHS [facility]; Protocol Last Admin: 08/26/22 12:30 Dose: 4 unit Morphine Sulfate (Morphine 2 Mg/1 Ml Inj) 2 mg IV Q4H PRN PRN Reason: Pain, Moderate (4-6) Ondansetron HCl (Ondansetron 4 Mg/2 Ml Inj) 4 mg IV Q3H PRN PRN Reason: Nausea And Vomiting Last Admin: 08/25/22 16:16 Dose: 4 mg Prednisone (Prednisone 5 Mg Tab) 5 mg PO QDAY [facility] Last Admin: 08/26/22 09:15 Dose: 5 mg Sodium Chloride (Sodium Chloride 0.9% 10 Ml Flush Syringe) 10 ml IV BID [facility] Last Admin: 08/26/22 09:16 Dose: 10 ml Sodium Chloride (Sodium Chloride 0.9% 10 Ml Flush Syringe) 10 ml IV PRN PRN PRN Reason: LINE FLUSH Review of Systems All systems: negative (10 point ROS performed and negative except for that listed in HPI) Exam Vital Signs Temp Pulse Resp BP Pulse Ox 98.3 F 124 H 18 114/70 99 08/24/22 10:10 08/24/22 10:10 08/24/22 10:10 08/24/22 10:10 08/24/22 10:10 Narrative exam: Gen.: Awake, alert, oriented x3. No apparent distress Skin: Jaundice ENT: Trachea midline. No lymphadenopathy. + scleral icterus. No conjunctival pallor CV: S1, S2 present Respiratory: No audible wheezes Abdomen: Soft, nondistended, nontender. No rebound, rigidity, guarding Extremities: No clubbing, cyanosis, edema Results - Labs 08/26/22 07:17 08/26/22 07:17 Abnormal lab results 08/25/22 08/26/22 08/26/22 Range/Units 23:08 06:15 07:17 RBC 2.99 L (3.65-5.03) M/mm3 Hgb 8.3 L (10.1-14.3) gm/dl Hct 24.4 L (30.3-42.9) % RDW 17.8 H (13.2-15.2) % Plt Count 497 H (140-440) K/mm3 Potassium (3.6-5.0) mmol/L Creatinine (0.6-1.2) mg/dL Glucose (65-100) mg/dL POC Glucose 146 H (70-105) mg/dL Hemoglobin A1c 8.1 H (4-6) % Calcium (8.4-10.2) mg/dL Total Bilirubin (0.1-1.2) mg/dL AST (5-40) units/L ALT (7-56) units/L Alkaline Phosphatase (35-129) units/L Total Protein (6.3-8.2) g/dL Albumin (3.9-5) g/dL 08/26/22 Range/Units 07:17 RBC (3.65-5.03) M/mm3 Hgb (10.1-14.3) gm/dl Hct (30.3-42.9) % RDW (13.2-15.2) % Plt Count (140-440) K/mm3 Potassium 3.3 L (3.6-5.0) mmol/L Creatinine < 0.2 L (0.6-1.2) mg/dL Glucose 163 H (65-100) mg/dL POC Glucose (70-105) mg/dL Hemoglobin A1c (4-6) % Calcium 8.3 L (8.4-10.2) mg/dL Total Bilirubin 12.10 H (0.1-1.2) mg/dL AST 73 H (5-40) units/L ALT 88 H (7-56) units/L Alkaline Phosphatase 698 H (35-129) units/L Total Protein 5.0 L (6.3-8.2) g/dL Albumin 2.3 L (3.9-5) g/dL Diabetes panel 08/26/22 08/26/22 Range/Units 06:15 07:17 Sodium 139 (137-145) mmol/L Potassium 3.3 L (3.6-5.0) mmol/L Chloride 105.1 (98-107) mmol/L Carbon Dioxide 22 (22-30) mmol/L BUN 8 (7-17) mg/dL Creatinine < 0.2 L (0.6-1.2) mg/dL Glucose 163 H (65-100) mg/dL Hemoglobin A1c 8.1 H (4-6) % Calcium 8.3 L (8.4-10.2) mg/dL AST 73 H (5-40) units/L ALT 88 H (7-56) units/L Alkaline Phosphatase 698 H (35-129) units/L Total Protein 5.0 L (6.3-8.2) g/dL Albumin 2.3 L (3.9-5) g/dL Calcium panel 08/26/22 Range/Units 07:17 Calcium 8.3 L (8.4-10.2) mg/dL Albumin 2.3 L (3.9-5) g/dL Pituitary panel 08/26/22 Range/Units 07:17 Sodium 139 (137-145) mmol/L Potassium 3.3 L (3.6-5.0) mmol/L Chloride 105.1 (98-107) mmol/L Carbon Dioxide 22 (22-30) mmol/L BUN 8 (7-17) mg/dL Creatinine < 0.2 L (0.6-1.2) mg/dL Glucose 163 H (65-100) mg/dL Calcium 8.3 L (8.4-10.2) mg/dL Adrenal panel 08/26/22 Range/Units 07:17 Sodium 139 (137-145) mmol/L Potassium 3.3 L (3.6-5.0) mmol/L Chloride 105.1 (98-107) mmol/L Carbon Dioxide 22 (22-30) mmol/L BUN 8 (7-17) mg/dL Creatinine < 0.2 L (0.6-1.2) mg/dL Glucose 163 H (65-100) mg/dL Calcium 8.3 L (8.4-10.2) mg/dL Total Bilirubin 12.10 H (0.1-1.2) mg/dL AST 73 H (5-40) units/L ALT 88 H (7-56) units/L Alkaline Phosphatase 698 H (35-129) units/L Total Protein 5.0 L (6.3-8.2) g/dL Albumin 2.3 L (3.9-5) g/dL - Imaging CT scan - abdomen: report reviewed, image reviewed CT scan - pelvis: report reviewed, image reviewed Additional studies: MRCP Assessment and Plan 52 yo F with 1. focal gallbladder wall thickening -questionable malignancy 2. worsening hyperbilirubinema 3. transaminitis 4. painless jaundice Pt stable, afebrile. Plan: 1. Diet as santosh 2. trend LFTs, Bili 3. GI on board 4. Recommend Hepatobiliary surgery evaluation of gallbladder abnormality for possible malignancy. Recommend tfer to facility with HPB surgery. If no beds available and patient remains stable, can be followed as outpatient. Discussed with patient and - they are agreeable. D/w Dr. Nick. Thank you for this consultation. Please call with any questions or concerns.
--- NOTE | 2022-08-26 16:11 | Gastroenterology Progress Note ---
Assessment and Plan # Jaundice # Elevated LFTs - T bili at 15.9 up from 8 on the 24th, ALT 182, alk phos 728 from 775 on the 24th. Also noted to have new leukocytosis with white count at 24.9 and lactic acid elevated at 3.5. - recent admission with work up including CT/abdominal US. CT showed reviewed contracted gallbladder containing small amount of sludge with mucosal thickening and edematous wall, no biliary ductal dilation or choledocholithiasis and US with small stones and sludge in the gallbladder. -MRI without any biliary ductal dilation or obstruction. Gallbladder thickening noted. -Suspect elevated LFT and jaundice may be more drug-induced liver injury. Less likely due to cholangitis. patient is not sure about medications that she takes but azathioprine was listed on home meds and patient was on another new medication for MS recently. - acute viral hep panel negative last week. -Other liver labs including ASMA, AMA, PRASHANTH, EBV, HSV serology pending. -INR normal. Rec -Continue to monitor LFTs and INR. -Recommend continue with home dose prednisone. - cont with sepsis protocol. - cont with empiric antibiotics. ID on board. -Patient seen with surgery and recommended to have evaluation with hepatobiliary surgery for findings of focal gallbladder wall thickening. Patient awaiting t ransfer to tertiary center. Discussed with surgery and IMS team. - Patient Problems (1) Jaundice Current Visit: Yes Status: Acute Subjective Date of service: 08/26/22 Interval history: Patient feels well today tolerating diet today. No nausea or vomiting. No abdominal pain. Objective - Constitutional Vitals: Temp Pulse Resp BP Pulse Ox 98.2 F 91 H 18 127/79 98 08/26/22 11:56 08/26/22 11:56 08/26/22 11:56 08/26/22 11:56 08/26/22 11:56 General appearance: no acute distress - EENT Eyes: scleral icterus - Neck Neck: supple - Respiratory Respiratory effort: normal - Cardiovascular Rhythm: regular Heart Sounds: Present: S1 & S2 - Gastrointestinal General gastrointestinal: Present: soft, non-tender, non-distended - Integumentary Integumentary: Present: jaundice - Neurologic Neurological: alert and oriented x3 - Labs CBC & Chem 7: 08/26/22 07:17 08/26/22 07:17 Labs: Laboratory Results - last 24 hr 08/25/22 08/26/22 08/26/22 23:08 06:15 07:17 WBC 8.4 RBC 2.99 L Hgb 8.3 L Hct 24.4 L MCV 82 MCH 28 MCHC 34 RDW 17.8 H Plt Count 497 H PT INR Sodium Potassium Chloride Carbon Dioxide Anion Gap BUN Creatinine Estimated GFR BUN/Creatinine Ratio Glucose POC Glucose 146 H Hemoglobin A1c 8.1 H Calcium Total Bilirubin AST ALT Alkaline Phosphatase Total Protein Albumin Albumin/Globulin Ratio 08/26/22 08/26/22 07:17 12:37 WBC RBC Hgb Hct MCV MCH MCHC RDW Plt Count PT 14.2 INR 0.97 Sodium 139 Potassium 3.3 L Chloride 105.1 Carbon Dioxide 22 Anion Gap 15 BUN 8 Creatinine < 0.2 L Estimated GFR > 60 BUN/Creatinine Ratio 40 Glucose 163 H POC Glucose Hemoglobin A1c Calcium 8.3 L Total Bilirubin 12.10 H AST 73 H ALT 88 H Alkaline Phosphatase 698 H Total Protein 5.0 L Albumin 2.3 L Albumin/Globulin Ratio 0.9
[2022-08-26] MEDS ORDERED: POTASSIUM CHLORIDE ER 20 MEQ TAB PO SCH (17:00)
[2022-08-26 18:22] VITALS: BP 133/91
== END 2022-08-26 22:00 | disposition short-term general hospital (02) | DRG 872 ==
LOC: ED 10:10 → 3A 15:11
PROVIDERS: ADMIT Internal Medicine; ATTEND Student in an Organized Health Care Education/Training Program
DX: A41.9 Sepsis, unspecified organism (principal); B17.9 Acute viral hepatitis, unspecified; E44.0 Moderate protein-calorie malnutrition; I10 Essential (primary) hypertension; D64.9 Anemia, unspecified; G35 Multiple sclerosis; E11.42 Type 2 diabetes mellitus with diabetic polyneuropathy; Z79.4 Long term (current) use of insulin; Z79.84 Long term (current) use of oral hypoglycemic drugs; Z68.23 Body mass index [BMI] 23.0-23.9, adult
CPT/HCPCS: 36415; 71045; 74177; 74181; 80053; 80076; 80320; 81001; 82010; 82140; 82550; 82962; 83036; 83690; 83880; 84484; 85007; 85025; 85027; 85610; 86038; 86140; 86665; 86695; 87040; 93005; 99285; G0378; J7517; Q9967; G0480; J0692; J0696; J1644; J1815; J2405; J7030; J7512